=== PATIENT | female | born 1955 | race Caucasian/White ===

== ENCOUNTER 2018-10-13 12:21 | Day surgery (SDC) | payer MEDICARE ==
[~2018-10-13 12:21] MED LIST: Acetaminophen TAB* 325 MG PO PRN; Buffered Lidocaine 1% SYRIN* 1 ML/SYRINGE INTRADERM ONE; Cyclopentolate 1% OPTH.SOL* 2 ML BTL ONE; Ketorolac 0.5% OPHTH (NF) 0.5 % 5 ML BTL ONE; Lidocaine 1%* 5 ML VIAL ONE; Neomycin/Polymy/Dex OPHTH.OIN* 3.5 GM ONE; Tetracaine 0.5% OPTH.SOL 4 ML* 1 DROP BTL ONE; Tropicamide 1% OPTH.SOL* BTL ONE
[2018-10-13] MEDS ORDERED: Midazolam* 1 MG/ML 2 ML VIAL (2 MG) ONE ×2 (13:43→14:14)
[2018-10-13 14:43] VITALS: BP 113/48
--- NOTE | 2018-10-13 23:30 | OP ---
DATE OF OPERATION: 10/13/18 - [facility] DATE OF : 59 SURGEON: Juwan Chau MD ASSOCIATE PROFESSOR OF SURGERY: None. ANESTHESIA: Topical with intravenous sedation. PRE-OP DIAGNOSIS: Cataract with glaucoma, right eye. POST-OP DIAGNOSIS: Cataract with glaucoma, right eye. OPERATIVE PROCEDURE: Phacoemulsification, cataract extraction, posterior chamber intraocular lens implant, and iStent implant, right eye. COMPLICATIONS: None. BLOOD LOSS: None. DESCRIPTION OF PROCEDURE: The patient was brought to the operating room and given intravenous sedation. A drop of tetracaine was placed in her right eye. The patient was prepped and draped in the usual sterile fashion for ophthalmic surgery and attention was directed to the right eye where a speculum was placed. A paracentesis was created at the 11 o'clock position and 0.1 cc of 1% preservative- free lidocaine was injected into the anterior chamber followed by DisCoVisc. The eye was digitally stabilized while a 2.75-mm keratome was used to create a triplanar clear corneal incision at the 9 o'clock position. A continuous curvilinear capsulorrhexis was created with a cystotome and Utrata forceps. BSS on a cannula was used to hydrodissect the lens from the capsule. Phacoemulsification was performed in a [id number]-[id number]-bpuodhv technique to create 4 fragments, which were removed. Residual cortical material was removed with irrigation and aspiration. DisCoVisc was used to inflate the capsule bag. An AU00T0 10.5 diopter lens was inserted into the capsular bag. Supplemental DisCoVisc was used to deepen the anterior chamber. DisCoVisc was placed on the surface of cornea as well. The patient's head was rotated away from the surgeon and the microscope was rotated toward the surgeon. A gonioprism was placed on the surface of the eye and an iStent on its plating technician was directed into the anterior chamber. Under direct visualization, the iStent was introduced into the nasal trabecular mesh-work. Small reflux of blood was noted and the position of the iStent was excellent. The iStent plating technician and the gonioprism were removed. The patient's head and the microscope were returned to the neutral position. Irrigation and aspiration were performed to remove viscoelastic from the eye. BSS on a cannula was used to hydrate the corneal stroma and seal the wound. At the end of the case, the pupil was round and the lens was centered and stable. The eye pressure appeared normal and wound was watertight. The speculum was removed. Topical Maxitrol ointment was placed on the surface of the eye that was closed, patched, and shielded, and the patient was sent to the recovery room in stable condition with postop instructions and followup appointment given. [id number]/[facility] #: [id number] LUIZ
== END 2018-10-13 14:54 | disposition home or self-care (01) ==
LOC: OREAST 12:21
PROVIDERS: ATTEND Ophthalmology
DX: H25.11 Age-related nuclear cataract, right eye (principal); H40.10X1 Unspecified open-angle glaucoma, mild stage; I10 Essential (primary) hypertension; K21.9 Gastro-esophageal reflux disease without esophagitis; E11.42 Type 2 diabetes mellitus with diabetic polyneuropathy; Z79.84 Long term (current) use of oral hypoglycemic drugs; E78.00 Pure hypercholesterolemia, unspecified; R01.1 Cardiac murmur, unspecified
CPT/HCPCS: A9270-GY; C1783; J2250; V2632

== ENCOUNTER 2018-10-20 09:12 | Day surgery (SDC) | payer MEDICARE ==
[~2018-10-20 09:12] MED LIST changes: -Cyclopentolate 1% OPTH.SOL* 2 ML BTL ONE; -Ketorolac 0.5% OPHTH (NF) 0.5 % 5 ML BTL ONE; -Lidocaine 1%* 5 ML VIAL ONE; -Neomycin/Polymy/Dex OPHTH.OIN* 3.5 GM ONE; -Tetracaine 0.5% OPTH.SOL 4 ML* 1 DROP BTL ONE; -Tropicamide 1% OPTH.SOL* BTL ONE
[2018-10-20] MEDS ORDERED: fentaNYL* 50 MCG/ML 2 ML VIAL (100 MCG VIAL) ONE (11:12)
[2018-10-20] MEDS ORDERED: Midazolam* 1 MG/ML 2 ML VIAL (2 MG) ONE (11:12)
[2018-10-20 12:34] VITALS: BP 113/46
[2018-10-20] MEDS ORDERED: Neomycin/Polymy/Dex OPHTH.OIN* 3.5 GM ONE (13:23)
[2018-10-20] MEDS ORDERED: Tetracaine 0.5% OPTH.SOL 4 ML* 1 DROP BTL ONE (13:23)
[2018-10-20] MEDS ORDERED: Lidocaine 1%* 5 ML VIAL ONE (13:23)
[2018-10-20] MEDS ORDERED: Cyclopentolate 1% OPTH.SOL* 2 ML BTL ONE (13:23)
[2018-10-20] MEDS ORDERED: Phenylephrine 2.5% OPTH.SOL* 2 ML BTL ONE (13:23)
[2018-10-20] MEDS ORDERED: Tropicamide 1% OPTH.SOL* BTL ONE (13:23)
[2018-10-20] MEDS ORDERED: Ketorolac 0.5% OPHTH (NF) 0.5 % 5 ML BTL ONE (13:23)
--- NOTE | 2018-10-20 14:06 | OP ---
DATE OF OPERATION: 10/20/18 - [facility] DATE OF : 59 SURGEON: Juwan Chau MD BOARD HANDLER: None. ANESTHESIA: Topical with intravenous sedation. PRE-OP DIAGNOSIS: Cataract and glaucoma, left eye. POST-OP DIAGNOSIS: Cataract and glaucoma, left eye. OPERATIVE PROCEDURE: Phacoemulsification and cataract extraction with posterior chamber intraocular lens implant, left eye; and iStent implant, left eye. COMPLICATIONS: None. BLOOD LOSS: None. DESCRIPTION OF PROCEDURE: The patient was brought to the operating room and received small amount of intravenous sedation. A drop of tetracaine was placed on her left eye. The patient was prepped and draped in the usual sterile fashion for ophthalmic surgery and attention was directed to the left eye, where a speculum was placed. A paracentesis was created at the 5 o'clock position and 0.1 cc of 1% preservative-free lidocaine was injected into the anterior chamber followed by DisCoVisc. The eye was digitally stabilized while a 2.75-mm keratome was used to create a triplanar clear corneal incision at the 3 o'clock position. A continuous curvilinear capsulorrhexis was created with a cystotome and Utrata forceps. BSS on the cannula was used to hydrodissect the lens from the capsule. Phacoemulsification was performed in a divide-and- conquer technique to create 4 fragments, which were removed. Residual cortical material was removed with irrigation and aspiration. DisCoVisc was used to inflate the capsular bag. An AU00T0 11.0 diopter lens was inserted into the capsular bag. Supplemental DisCoVisc was added to deepen the anterior chamber and coat the surface of the cornea. The patient's head was rotated away from the surgeon and the microscope was rotated toward the surgeon. A gonioprism was placed in the surface of the eye. An iStent on its utilities and maintenance supervisor was introduced into the anterior chamber. Under direct visualization, the iStent was placed into the nasal trabecular meshwork. The iStent utilities and maintenance supervisor and the gonioprism were removed. The patient's head and the microscope were returned to neutral positions. Irrigation and aspiration was performed to remove viscoelastic from the eye. BSS on the cannula was used to hydrate the corneal stroma and seal the wound. At the end of the case, the pupil was round. The lens was centered and stable. The iStent was in good position. The eye pressure appeared normal and the wound was watertight. The speculum was removed and topical Maxitrol ointment was placed on the surface of the eye. The eye was closed, patched, and shielded and the patient was sent to the recovery room in stable condition with postop instructions and followup appointment given. [id number]/[facility] #: [id number] LUIZ
== END 2018-10-20 12:17 | disposition home or self-care (01) ==
LOC: OREAST 09:12
PROVIDERS: ATTEND Ophthalmology
DX: H25.12 Age-related nuclear cataract, left eye (principal); H40.10X1 Unspecified open-angle glaucoma, mild stage; E11.9 Type 2 diabetes mellitus without complications; Z79.84 Long term (current) use of oral hypoglycemic drugs; Z86.73 Personal history of transient ischemic attack (TIA), and cerebral infarction without residual deficits; Z79.01 Long term (current) use of anticoagulants; I10 Essential (primary) hypertension; G47.33 Obstructive sleep apnea (adult) (pediatric); J45.909 Unspecified asthma, uncomplicated
CPT/HCPCS: A9270-GY; C1783; J2250; J3010; V2632

== ENCOUNTER → 2019-01-10 12:42 | Emergency (ER) | payer MEDICARE ==
[~2019-01-10 12:42] MED LIST changes: -Acetaminophen TAB* 325 MG PO PRN; -Buffered Lidocaine 1% SYRIN* 1 ML/SYRINGE INTRADERM ONE; +oxyCODONE/Acetamin 5/325 MG* TAB PO ONE
--- NOTE | 2019-01-10 13:19 | ED ---
Complex/Multi-Sys Presentation - HPI Summary HPI Summary: Patient is a 63 y/o F presenting to ED with complaints of head "bumps". She reports finding multiple "bumps" on her head and first noted them two days ago, 01/08/19. Bumps are located at left side of posterior and occipital area. The bumps are noted to be tender. She reports intermittent, sharp pain "like a shock " at these areas with radiation into her head. Patient states that the bumps were not painful two days ago, 01/08/19, but became painful yesterday morning, 01/09/19. Some dizziness sitting up is noted. Patient is on Warfarin for PE in 2008. PMHx of diabetes. She has not had a lab blood draw to check for her BG and INR recently. Patient also makes note of a fall around two weeks ago after tripping over a rug. She states that she has been experiencing bilateral knee pain as a result of this fall from two weeks ago. Patient additionally states that she bumped her head against a door frame earlier this morning, 01/10/19. She denies abdominal pain, nausea, and vomiting. PSHx of breast reduction, bone removal from left hand, cholecystectomy. No FMHx of blood clots is reported , father has Hx of stroke, FMHx of cardiac disease is endorsed. Hx of HTN. Patient's friend, Meghan, is present in the room. Patient takes Tylenol at home for pain, she is agreeable with receiving pain medication in the ED. On triage, pain is rated 10/10, nothing is noted to aggravate/alleviate Sx. Home medications and allergies are reviewed. Allergies Allergy/AdvReac Type Severity Reaction Status Date / Time Adhesive Tape Allergy KOENIG Verified 01/10/19 12:50 codeine Allergy n/v Verified 01/10/19 12:50 latex Allergy welts/ Verified 01/10/19 12:50 hives strawberry Allergy anaphylaxis Verified 01/10/19 12:50 aspertame Allergy Headache Uncoded 01/10/19 12:50 contrast dye Allergy anaphylactic Uncoded 01/10/19 12:50 shock - History Of Current Complaint Chief Complaint: EDGeneral Time Seen by Provider: 01/10/19 13:08 Hx Obtained From: Patient Onset/Duration: Lasting Days - bumps first noted 01/08/19, became painful 01/09/19 , bumped head on doorfram 01/10/19, Lasting Weeks - fall, bilateral knee pain two weeks ago, Still Present Timing: Constant, Days - bumps first noted 01/08/19, became painful 01/09/19, bumped head on doorfram 01/10/19, Weeks - fall, bilateral knee pain two weeks ago Severity Currently: Severe - 05/20 Location: Pain At: - head Aggravating Factor(s): nothing Alleviating Factor(s): nothing Associated Signs And Symptoms: Positive: Other - POSITIVE - "BUMPS" ON HEAD, BILATERAL KNEE PAIN, DIZZINESS, FALLS. Negative: Nausea, Vomiting, Abdominal Pain - Allergies/Home Medications Allergies/Adverse Reactions: Allergies Allergy/AdvReac Type Severity Reaction Status Date / Time Adhesive Tape Allergy KOENIG Verified 01/10/19 12:50 codeine Allergy n/v Verified 01/10/19 12:50 latex Allergy welts/ Verified 01/10/19 12:50 hives strawberry Allergy anaphylaxis Verified 01/10/19 12:50 aspertame Allergy Headache Uncoded 01/10/19 12:50 contrast dye Allergy anaphylactic Uncoded 01/10/19 12:50 shock PMH/Surg Hx/FS Hx/Imm Hx Endocrine/Hematology History: Reports: Hx Anticoagulant Therapy, Hx Diabetes, Hx Anemia - 2008 Cardiovascular History: Reports: Hx Angina, Hx Coronary Artery Disease, Hx Deep Vein Thrombosis, Hx Hypercholesterolemia, Hx Hypertension Denies: Hx Pacemaker/ICD, Other Cardiovascular Problems/Disorders Respiratory History: Reports: Hx Asthma, Hx Pulmonary Embolism - on coumadin, Hx Sleep Apnea Denies: Hx Chronic Obstructive Pulmonary Disease (COPD), Other Respiratory Problems/Disorders GI History: Reports: Hx Gastroesophageal Reflux Disease, Other GI Disorders - CELIAC DISEASE History: Denies: Hx Renal Disease Musculoskeletal History: Reports: Hx Arthritis, Hx Back Problems, Hx Bursitis, Hx Orthopedic Injury - left hip injury in youth Denies: Other Musculoskeletal History Sensory History: Reports: Hx Cataracts - lory, Hx Contacts or Glasses, Hx Glaucoma - lory Denies: Hx Hearing Aid Opthamlomology History: Reports: Hx Cataracts - lory, Hx Contacts or Glasses, Hx Glaucoma - lory Neurological History: Reports: Hx Headaches - fewer headaches recently, Hx Nerve Disease - neuopathy both feet Denies: Other Neuro Impairments/Disorders Psychiatric History: Reports: Hx Anxiety, Hx Depression Denies: Hx Panic Disorder - Surgical History Surgery Procedure, Year, and Place: breast reduction 1989/[facility];. cholecystectomy ;. carpal tunnel release [facility];. bones (2) removed from left wrist ([facility]),. arthroscopic surgery left knee;. Right Hip Replaced in December 2016 at [facility]. Hx Anesthesia Reactions: Yes - difficulty waking up - Immunization History Date of Tetanus Vaccine: Unk Date of Influenza Vaccine: 2012 Infectious Disease History: No Infectious Disease History: Denies: Traveled Outside the [place] in Last 30 Days - Family History Known Family History: Positive: Cardiac Disease, Other - FMHX OF STROKE ENDORSED Negative: Blood Disorder - NO FMHX OF BLOOD CLOTS - Social History Alcohol Use: Occasionally Alcohol Amount: 1-2 glasses of wine per week Substance Use Type: Reports: None Hx Tobacco Use: No Smoking Status (MU): Former Smoker Type: Cigarettes Amount Used/How Often: at age 22 Have You Smoked in the Last Year: No Review of Systems Negative: Abdominal Pain, Vomiting, Nausea Musculoskeletal: Other - POSITIVE - FALL, STRUCK HEAD AGAINST DOORFRAME, BILATERAL KNEE PAIN Skin: Other - POSITIVE - HEAD BUMPS Neurological: Other - POSITIVE - DIZZINESS All Other Systems Reviewed And Are Negative: Yes Physical Exam - Summary Physical Exam Summary: Appearance: Ill-appearing, moderate pain distress, well-nourished Skin: Warm, color reflects adequate perfusion, dry; bilateral 5 cm by 1 cm abrasions on knees with redness and yellowish scabs Head: Normal Head/Face inspection, atraumatic; No lumps palpated or redness noted. Areas of sensitivity and pain at parietal scalp. Eyes: Conjunctiva clear ENT: Normal inspection Neck: Supple, no nodes, no JVD Respiratory: Lungs clear, normal breath sounds, no respiratory distress Cardio: RRR, No murmur, pulses normal, brisk capillary refill Abdomen: Soft, nontender Bowel sounds: Present Musculoskeletal: Strength Intact/ROM intact, no calf tenderness, no edema. Psychological: Normal Neuro: Alert, muscle tone normal, no focal deficit Triage Information Reviewed: Yes Vital Signs On Initial Exam: Initial Vitals Temp Pulse Resp BP Pulse Ox 97.7 F 60 18 142/92 98 01/10/19 12:43 01/10/19 12:43 01/10/19 12:43 01/10/19 12:43 01/10/19 12:43 Vital Signs Reviewed: Yes Diagnostics - Vital Signs Vital Signs Temp Pulse Resp BP Pulse Ox 01/10/19 12:43 97.7 F 60 18 142/92 98 - Laboratory Result Diagrams: 01/10/19 13:49 01/10/19 13:49 Lab Statement: Any lab studies that have been ordered have been reviewed, and results considered in the medical decision making process. - CT BRAIN CT CT Interpretation Completed By: Radiologist Summary of CT Findings: BRAIN CT IMPRESSION: 1. No CT apparent signs of acute calvarial injury or intracranial hemorrhage. 2. Paranasal sinus mucosal disease. THIS REPORT WAS REVIEWED BY DR. BERMUDEZ. Re-Evaluation - Re-Evaluation First Eval Re-Evaluation Time: 15:39 Comment: Results of labs and tests were discussed with the patient. She will be discharged to home and is advised to follow up with PCP. Patient is agreeable with this. Strict return precautions were given. Complex Multi-Symp Course/Dx Course Of Treatment: Patient is a 63 y/o F presenting to ED with complaints of head "bumps". She reports finding multiple "bumps" on her head and first noted them two days ago, 01/08/19. Bumps are located at left side of posterior and occipital area. The bumps are noted to be tender. She reports intermittent, sharp pain "like a shock" at these areas with radiation into her head. Patient states that the bumps were not painful two days ago, 01/08/19, but became painful yesterday morning, 01/09/19. Some dizziness sitting up is noted. Patient is on Warfarin for PE in 2008. PMHx of diabetes. She has not had a lab blood draw to check for her BG and INR recently. Patient also makes note of a fall around two weeks ago after tripping over a rug. She states that she has been experiencing bilateral knee pain as a result of this fall from two weeks ago. Patient additionally states that she bumped her head against a door frame earlier this morning, 01/10/19. She denies abdominal pain, nausea, and vomiting. On physical exam, bilateral 5 cm by 1 cm abrasions on knees bilaterally, no lumps palpated or redness noted at head. There are areas of sensitivity and pain at parietal scalp. Labs showed Hgb 11.1, Hct 34, INR 2.33, APTT 52.3, chloride 100, glucose 248, CRP 11.62. During ED course, patient received Percocet 5/325, [address] IMPRESSION: 1. No CT apparent signs of acute calvarial injury or intracranial hemorrhage. 2. Paranasal sinus mucosal disease. Results of labs and tests were discussed with the patient. She will be discharged to home and is advised to follow up with PCP. Patient is agreeable with this. Strict return precautions were given. - Diagnoses Provider Diagnoses: Headache, Infection of knee, Scalp pain Discharge - Sign-Out/Discharge Documenting (check all that apply): Patient Departure - discharge Patient Received Moderate/Deep Sedation with Procedure: No - Discharge Plan Condition: Stable Disposition: HOME Patient Education Materials: Wound Infection (ED), Acute Headache (ED) Referrals: Michelle Allen NP [Primary Care Provider] - 2 Days Additional Instructions: The CT brain did not show any serious cause of your "bumps" on your scalp. And your INR was still in the therapeutic range for a pulmonary embolus. It is 2.33. Dr. Bermudez has started you on Augmentin, the antibiotic, for your knee wounds which do look like they are starting to get infected. Please follow up with Michelle Allen NP for further evaluation of you scalp pain , and to make sure that the knee wounds heal. Return to the ER if you have any new or worsening symptoms. - Attestation Statements Document Initiated by Scribe: Yes Documenting Scribe: STONE WHITEHEAD Provider For Whom Adriana is Documenting (Include Credential): OSBALDO BERMUDEZ MD Scribe Attestation: STONE Charlton, scribed for OSBALDO BERMUDEZ MD on 01/10/19 at 1913.
--- OUTSIDE RECORDS SUMMARY | 2019-01-10 13:25 | XMS REPORT | Continuity of Care Document ---
:1955 External Reference #:[id number] Author Name Michelle Allen NP Address [address] [place] [address] Care Team Providers Name Role Phone Michelle Allen NP Care Team Information [employer] Supervisor Unavailable Payers Date Identification Numbers Payment Provider Subscriber Expires: 2018 Policy Number: [id number] Medicare - Bswny Umd Janny Rojas PayID: [id number] [address] [place] [address] Effective: 2017 Policy Number: [id number] Medicaid After Medicare Janny Rojas Expires: 2017 Group Name: 2 1 [address] PayID: [id number] [place] [address] Effective: 2018 Policy Number: [id number] [facility] Medicare Janny Rojas Group Number: [id number] [address] Group Name: [place] [address] PayID: [id number] Problems Active Problems Provider Date Type 2 diabetes mellitus with diabetic ALTA Charles Onset: 2016 neuropathy, unspecified Pure hypercholesterolemia ALTA Charles Onset: 06/19/2017 Essential hypertension ALTA Charles Onset: 06/19/2017 Social History Type Date Description Comments Sex Unknown Lives With Alone Occupation Retired from [employer] disability due to neuropathy Tobacco Use Start: Unknown End: Former Cigarette Smoker 1/2 pack a day for 2 Unknown yrs Smoking Status Reviewed: 12/28/18 Former Cigarette Smoker 1/2 pack a day for 2 yrs ETOH Use Occasionally consumes alcohol Tobacco Use Start: Unknown End: Patient is a former smoker Unknown Allergies, Adverse Reactions, Alerts Active Allergies Reaction Severity Comments Date Strawberries 06/19/2017 Amoxicillin 06/19/2017 Glipizide 06/19/2017 Contrast Dye 06/19/2017 Codeine 06/19/2017 Latex 12/28/2018 Medications Active Medications SIG Qnty Indications Ordering Date Provider Nateglinide take one tablet 90tabs E11.40 Michelle Alejandro, 03/23/2018 60mg by mouth three DECORATION CHECKER Tablets times a day with meals Irbesartan take one tablet 30tabs Clarence 03/02/2018 150mg by mouth every MD Lizz Tablets day for blood pressure Fish Oil as directed Dayana Elaine, 06/19/2017 1000mg SEWER BRICKLAYER-C Capsules Vitamin C 2 po qd Dayana Elaine, 06/19/2017 500mg SEWER BRICKLAYER-C Capsules Pressure Two Eye one capsule by Unknown Vitamin mouth twice a day Nitroglycerin Place One Tablet Unknown 0.4mg Under The Tongue Tablets Sub Every 5 Minutes For Up To 3 Doses as Needed Forchest Pain. If Chest Pain Still Persists Contact 911 Warfarin Sodium Take 1 Tablet By 30tabs Jenna 5mg Mouth 4 Times A Shortle, DECORATION CHECKER Tablets Week And 1/2 Tablet 3 Times A Week as Directed Oxycodone-Acetaminoph Take One Tablet Unknown en By Mouth Twice A 5-325mg Tablets Day as Needed For Pain Maximum Daily Onetouch Ultra Blue use to test two 100units E11.40 [facility] times a day (dx: Kristi, DECORATION CHECKER Strips e11.40) Gabapentin take two 450caps Michelle Allen, 300mg capsules by DECORATION CHECKER Capsules mouth every morning and take three capsules by mouth every evening Warfarin Sodium 5mg 4 days per 90tabs Michelle Allen, 5mg week and 2.5mg 3 DECORATION CHECKER Tablets days per week or as directed Omeprazole 1 po qd Unknown 40mg Capsules [address] Metformin HCL Take 1 Tablet By 60tabs Clarence 1000mg Mouth Two Times MD Lizz Tablets Daily Citalopram 1 by mouth every 30tabs Michelle Allen, Hydrobromide day [employer]ATION CHECKER 20mg Tablets Baclofen Take 1 Tablet By 30tabs Clarence 20mg Tablets Mouth Every Day MD Lizz Simvastatin 1 tab by mouth 30tabs Michelle Allen, 40mg every at bedtime [employer]ATION CHECKER Tablets History Medications Nitrofurantoin Monohyd Take 1 capsule by 14caps Michelle Allen, DECORATION CHECKER 2017 - Macro mouth every 12 08/21/2018 100mg Capsules hours for 7 days with food for urinary tract infection Repaglinide Take One Tablet By 90tabs Jenna Berry, 02/03/2018 - 0.5mg Tablets Mouth Three Times [employer]ATION CHECKER 02/05/2018 A Day 15 To 30 Minutes Before Meals For Type 2 Diabetes Melatonin Jenna Kristi, 12/29/2017 - 1mg Capsules DECORATION CHECKER 12/29/2017 Repaglinide Take One Tablet By 90tabs Jenna Berry, 11/28/2017 - 0.5mg Tablets Mouth Three Times DECORATION CHECKER 11/28/2017 A Day 15 To 30 Minutes Before Meals For Type 2 Diabetes Januvia take one tablet by 30tabs Michelle Allen, DECORATION CHECKER 11/28/2017 - 100mg Tablets mouth every day 12/28/2018 for type 2 diabetes Repaglinide Take 1 tablet by 90tabs Jenna Berry, 10/31/2017 - 0.5mg Tablets mouth 3 times per DECORATION CHECKER 11/25/2017 day 15 to 30 minutes before meals for Type 2 diabetes Prednisone 2 tabs by mouth 28tabs Jenna Berry, 08/25/2017 - 20mg Tablets daily (in the DECORATION CHECKER 10/20/2017 morning) Nateglinide 1 tab po tid 90tabs Unknown - 60mg Tablets 02/19/2018 Tradjenta Take 1 Tablet By Unknown - 5mg Tablets Mouth Every Day 11/25/2017 Valsartan take one tablet by 30tabs Clarence Zamudio, - 80mg Tablets mouth every day 03/02/2018 Immunizations CPT Code Status Date Vaccine Lot # [id number] Given 12/28/2018 Pneumovax 23 (PPSV23) 65+ years or high risk 2 to [id number] 66 year old [address] Given 12/28/2018 Tdap (Adacel) [id number] Given 04/11/2018 Influenza Virus Vaccine, Quadrivalent, 3 Yr > Quad, Preserv Free 23056 Given 06/19/2017 Prevnar-13 Pneumococcal Conjugate Vaccine [id number] Given 05/28/2017 Influenza Virus Vaccine, Quadrivalent, 3 Yr > Quad, Preserv Free Vital Signs Date Vital Result Comment 12/28/2018 2:46pm Weight 186.00 lb Weight 84.370 kg BP Systolic 110 mmHg BP Diastolic 68 mmHg Heart Rate 68 /min Body Temperature 97.1 F Respiratory Rate 16 /min Height 63.5 inches 5'3.50" BMI (Body Mass Index) 32.4 kg/m2 10/12/2018 5:02pm Weight 185.00 lb Weight 83.916 kg BP Systolic 112 mmHg BP Diastolic 64 mmHg Heart Rate 56 /min Body Temperature 98.6 F Respiratory Rate 16 /min O2 % BldC Oximetry 99 % 10/05/2018 9:59am Weight 186.00 lb Weight 84.370 kg BP Systolic 120 mmHg BP Diastolic 60 mmHg Heart Rate 72 /min Body Temperature 97.5 F Respiratory Rate 16 /min 08/21/2018 2:11pm Weight 187.00 lb Weight 84.823 kg BP Systolic 130 mmHg BP Diastolic 80 mmHg Heart Rate 73 /min Body Temperature 97.8 F O2 % BldC Oximetry 99 % 06/30/2018 8:54am Weight 192.00 lb Weight 87.091 kg BP Systolic 112 mmHg BP Diastolic 62 mmHg Heart Rate 60 /min Body Temperature 98.1 F Respiratory Rate 16 /min 05/04/2018 2:44pm Weight 187.00 lb Weight 84.823 kg BP Systolic 110 mmHg BP Diastolic 68 mmHg Heart Rate 64 /min Body Temperature 98.3 F Respiratory Rate 16 /min O2 % BldC Oximetry 97 % 03/23/2018 10:55am Weight 188.00 lb Weight 85.277 kg BP Systolic 102 mmHg BP Diastolic 62 mmHg Heart Rate 64 /min Body Temperature 98.4 F Respiratory Rate 16 /min 02/19/2018 2:19pm Weight 187.00 lb Weight 84.823 kg BP Systolic 108 mmHg BP Diastolic 64 mmHg Heart Rate 68 /min Body Temperature 98.2 F Respiratory Rate 18 /min O2 % BldC Oximetry 98 % 12/22/2017 8:13am Weight 181.00 lb Weight 82.102 kg BP Systolic 122 mmHg BP Diastolic 68 mmHg Heart Rate 74 /min Body Temperature 97.3 F Respiratory Rate 16 /min Height 64 inches 5'4" BMI (Body Mass Index) 31.1 kg/m2 O2 % BldC Oximetry 98 % 11/25/2017 10:53am Weight 197.00 lb Weight 89.359 kg BP Systolic 124 mmHg BP Diastolic 70 mmHg Heart Rate 72 /min Body Temperature 97.5 F Respiratory Rate 20 /min 10/20/2017 9:45am Weight 186.00 lb Weight 84.370 kg BP Systolic 108 mmHg BP Diastolic 62 mmHg Heart Rate 74 /min Body Temperature 98.0 F Respiratory Rate 16 /min 08/25/2017 10:23am Weight 188.00 lb Weight 85.277 kg BP Systolic 110 mmHg BP Diastolic 70 mmHg Heart Rate 68 /min Body Temperature 97.3 F Respiratory Rate 16 /min O2 % BldC Oximetry 98 % 06/19/2017 2:15pm Weight 185.00 lb Weight 83.916 kg BP Systolic 105 mmHg BP Diastolic 60 mmHg Heart Rate 64 /min Body Temperature 99.8 F Height 63 inches 5'3" BMI (Body Mass Index) 32.8 kg/m2 Results Test Date Facility Test Result H/L Range Note Laboratory test [facility] Hemoglobin A1c < pending> finding 9 [phone] (Glyco HGB) Laboratory test Other [facility] 2.1 finding 9 Normalized Ratio Laboratory test [facility] Vitamin B12 544 pg/mL N 180-136 1 finding 9 [phone] Laboratory test Other [facility] 1.9 finding 9 Normalized Ratio Laboratory test Other [facility] 1.8 finding 9 Normalized Ratio Laboratory test Other [facility] 1.6 finding 9 Normalized Ratio Laboratory test [facility] 1.6 finding 9 Normalized Ratio Laboratory test Other [facility] 1.9 finding 9 Normalized Ratio Laboratory test [facility] 1.8 finding 9 Normalized Ratio Laboratory test Other [facility] 2.3 finding 9 Normalized Ratio Laboratory test Other [facility] 2.7 finding 9 Normalized Ratio Laboratory test Other [facility] 2.8 finding 9 Normalized Ratio Laboratory test [facility] 2.9 finding 9 Normalized Ratio Laboratory test [facility] 2.9 finding 9 Normalized Ratio Laboratory test Other [facility] 3.7 finding 9 Normalized Ratio Laboratory test Other [facility] 4.2 finding 9 Normalized Ratio Laboratory test Other [facility] 3.0 finding 9 Normalized Ratio Comp Metabolic [facility] Sodium 139 mmol/ L N 135-145 Panel 9 [phone] Potassium 3.9 mmol/L N 3.5-5.0 Chloride 103 mmol/L N 101-111 Co2 Carbon Dioxide 29 mmol/L N 22-32 Anion Gap 7 mmol/L N 2-11 Glucose 119 mg/dL High 70-100 Blood Urea Nitrogen 12 mg/dL N 6-24 Creatinine 0.69 mg/dL N 0.51-0.95 BUN/Creatinine Ratio 17.4 N 8-20 Calcium 9.6 mg/dL N 8.6-10.3 Total Protein 7.2 g/dL N 6.4-8.9 Albumin 4.5 g/dL N 3.2-5.2 Globulin 2.7 g/dL N 2-4 Albumin/Globulin Ratio 1.7 N 1-3 Total Bilirubin 0.20 mg/dL N 0.2-1.0 Alkaline Phosphatase 52 U/L N 34-104 Alt 15 U/L N 7-52 Ast 18 U/L N 13-39 Egfr Non- 86.5 >60 Egfr 104.7 >60 2 CBC Auto Diff 09/28/2018 [facility] White Blood 7.4 10^3/uL N 3.5-10.8 [phone] Count Red Blood Count 3.95 10^6/uL Low 4.00-5.40 Hemoglobin 11.2 g/dL Low 12.0-16.0 Hematocrit 34 % Low 35-47 Mean Corpuscular Volume 86 fL N 80-97 Mean Corpuscular Hemoglobin 28 pg N 27-31 Mean Corpuscular HGB Conc 33 g/dL N 31-36 Red Cell Distribution Width 15 % N 10.5-15 Platelet Count 352 10^3/uL N 150-450 Mean Platelet Volume 6.9 fL Low 7.4-10.4 Abs Neutrophils 4.1 10^3/uL N 1.5-7.7 Abs Lymphocytes 2.8 10^3/uL N 1.0-4.8 Abs Monocytes 0.4 10^3/uL N 0-0.8 Abs Eosinophils 0.1 10^3/uL N 0-0.6 Abs Basophils 0 10^3/uL N 0-0.2 Abs Nucleated RBC 0 10^3/uL Granulocyte % 55.2 % Lymphocyte % 37.5 % Monocyte % 5.1 % Eosinophil % 1.7 % Basophil % 0.5 % Nucleated Red Blood Cells % 0.1 Laboratory 09/28/2018 [facility] Hemoglobin A1c 7.1 % High 4.0-5.6 3 test finding [phone] (Glyco HGB) Laboratory 09/23/2018 Other [facility] 1.9 test finding Normalized Ratio Laboratory 09/16/2018 [facility] 2.6 test finding Normalized Ratio Laboratory 09/09/2018 [facility] 1.7 test finding Normalized Ratio Laboratory 09/02/2018 Other [facility] 1.7 test finding Normalized Ratio Laboratory 08/27/2018 [facility] 1.4 test finding Normalized Ratio Laboratory 08/21/2018 [facility] Cytology Non-Lottery Sales Clerk SEE 4 test finding [phone] RESULT BELOW Laboratory 08/20/2018 [facility] 2.9 test finding Normalized Ratio Laboratory 08/13/2018 [facility] 2.7 test finding Normalized Ratio Laboratory 08/12/2018 [facility] 2.7 test finding Normalized Ratio Laboratory 08/05/2018 Other [facility] 2.9 test finding Normalized Ratio Laboratory 07/29/2018 Other [facility] 2.4 test finding Normalized Ratio Laboratory 07/22/2018 Other [facility] 2.0 test finding Normalized Ratio Laboratory 07/15/2018 [facility] 2.4 test finding Normalized Ratio Laboratory 07/08/2018 Other [facility] 1.9 test finding Normalized Ratio Laboratory 07/01/2018 [facility] 2.2 test finding Normalized Ratio Laboratory 06/25/2018 Other [facility] 2.6 test finding Normalized Ratio Laboratory 06/17/2018 Other [facility] 2.5 test finding Normalized Ratio CBC Auto Diff 06/17/2018 [facility] White Blood Count 5.9 N 3.5-10.8 [phone] 10^3/uL Red Blood Count 3.87 10^6/uL Low 4.00-5.40 Hemoglobin 11.0 g/dL Low 12.0-16.0 Hematocrit 33 % Low 35-47 Mean Corpuscular Volume 86 fL N 80-97 Mean Corpuscular Hemoglobin 28 pg N 27-31 Mean Corpuscular HGB Conc 33 g/dL N 31-36 Red Cell Distribution Width 15 % N 10.5-15 Platelet Count 331 10^3/uL N 150-450 Mean Platelet Volume 6.9 fL Low 7.4-10.4 Abs Neutrophils 3.3 10^3/uL N 1.5-7.7 Abs Lymphocytes 2.1 10^3/uL N 1.0-4.8 Abs Monocytes 0.4 10^3/uL N 0-0.8 Abs Eosinophils 0.1 10^3/uL N 0-0.6 Abs Basophils 0 10^3/uL N 0-0.2 Abs Nucleated RBC 0 10^3/uL Granulocyte % 55.9 % N 38-83 Lymphocyte % 35.9 % N 25-47 Monocyte % 6.3 % N 0-7 Eosinophil % 1.4 % N 0-6 Basophil % 0.5 % N 0-2 Nucleated Red Blood Cells % 0.1 Comp Metabolic Panel 06/17/2018 [facility] Sodium 137 mmol/L N 135-145 [phone] Potassium 4.7 mmol/L N 3.5-5.0 Chloride 101 mmol/L N 101-111 Co2 Carbon Dioxide 28 mmol/L N 22-32 Anion Gap 8 mmol/L N 2-11 Glucose 290 mg/dL High 70-100 Blood Urea Nitrogen 16 mg/dL N 6-24 Creatinine 0.74 mg/dL N 0.51-0.95 BUN/Creatinine Ratio 21.6 High 8-20 Calcium 9.2 mg/dL N 8.6-10.3 Total Protein 7.0 g/dL N 6.4-8.9 Albumin 4.1 g/dL N 3.2-5.2 Globulin 2.9 g/dL N 2-4 Albumin/Globulin Ratio 1.4 N 1-3 Total Bilirubin 0.30 mg/dL N 0.2-1.0 Alkaline Phosphatase 50 U/L N 34-104 Alt 15 U/L N 7-52 Ast 17 U/L N 13-39 Egfr Non- 79.8 >60 Egfr 96.5 >60 5 Laboratory test 06/17/2018 [facility] Hemoglobin A1c 7.8 % High 4.0-5.6 6 finding [phone] (Glyco HGB) Laboratory test 06/11/2018 Other [facility] 2.4 finding Normalized Ratio Laboratory test 06/03/2018 Other [facility] 1.9 finding Normalized Ratio Laboratory test 05/28/2018 Other [facility] 2.0 finding Normalized Ratio Laboratory test 05/20/2018 Other [facility] 2.2 finding Normalized Ratio Laboratory test 05/13/2018 Other [facility] 1.9 finding Normalized Ratio Laboratory test 05/06/2018 Other [facility] 1.8 finding Normalized Ratio Urine Culture And 05/04/2018 [facility] Urine Culture SEE 7 Sensitivities [phone] RESULT BELOW Urine DIP 05/04/2018 In House Lab Leukocytes ++ Neg [phone] Urine Nitrites neg Neg Urobilinogen norm Norm Total Protein, Urine + Neg Urine pH 5 5-6 Urine Blood 250 High Neg Specific [place] 1.030 High 1.01-1.02 Urine Ketones neg Neg Urine Bilirubin neg Neg Urine Glucose norm Norm Laboratory test 04/29/2018 Other [facility] 1.8 finding Normalized Ratio Laboratory test 04/22/2018 Other [facility] 2.0 finding Normalized Ratio Laboratory test 04/15/2018 Other [facility] 1.8 finding Normalized Ratio Laboratory test 04/08/2018 Other [facility] 2.1 finding Normalized Ratio Laboratory test 04/01/2018 Other [facility] 1.7 finding Normalized Ratio Laboratory test 03/26/2018 Other [facility] 2.1 finding Normalized Ratio Laboratory test 03/18/2018 Other [facility] 2.7 finding Normalized Ratio Laboratory test 03/12/2018 Other [facility] 2.4 finding Normalized Ratio Laboratory test 03/05/2018 Other [facility] 1.9 finding Normalized Ratio Laboratory test 02/25/2018 Other [facility] 2.1 finding Normalized Ratio Laboratory test 02/19/2018 Other [facility] 2.7 finding Normalized Ratio Urine Culture And 02/19/2018 [facility] Urine Culture SEE RESULT 8 Sensitivities [phone] BELOW Urine DIP 02/19/2018 In House Lab Leukocytes ++ Neg [phone] - Urine Nitrites neg Neg Urobilinogen norm Norm Total Protein, Urine tr Neg Urine pH 5 5-6 Urine Blood neg Neg Specific [place] 1.020 1.01-1.02 Urine Ketones neg Neg Urine Bilirubin neg Neg Urine Glucose norm Norm Laboratory test 02/12/2018 Other [facility] 2.1 finding Normalized Ratio CBC Auto Diff 02/10/2018 [facility] White Blood Count 7.7 N 3.5-10 [phone] 10^3/uL .8 Red Blood Count 3.95 10^6/uL Low 4.00-5.40 Hemoglobin 10.8 g/dL Low 12.0-16.0 Hematocrit 33 % Low 35-47 Mean Corpuscular Volume 83 fL N 80-97 Mean Corpuscular Hemoglobin 27 pg N 27-31 Mean Corpuscular HGB Conc 33 g/dL N 31-36 Red Cell Distribution Width 17 % High 10.5-15 Platelet Count 301 10^3/uL N 150-450 Mean Platelet Volume 6.7 um3 Low 7.4-10.4 Abs Neutrophils 4.5 10^3/uL N 1.5-7.7 Abs Lymphocytes 2.7 10^3/uL N 1.0-4.8 Abs Monocytes 0.4 10^3/uL N 0-0.8 Abs Eosinophils 0.1 10^3/uL N 0-0.6 Abs Basophils 0 10^3/uL N 0-0.2 Abs Nucleated RBC 0 10^3/uL Granulocyte % 58.0 % N 38-83 Lymphocyte % 34.8 % N 25-47 Monocyte % 5.2 % N 0-7 Eosinophil % 1.6 % N 0-6 Basophil % 0.4 % N 0-2 Nucleated Red Blood Cells % 0.1 Comp Metabolic Panel 02/10/2018 [facility] Sodium 141 mmol/L N 135-145 [phone] Potassium 4.4 mmol/L N 3.5-5.0 Chloride 103 mmol/L N 101-111 Co2 Carbon Dioxide 30 mmol/L N 22-32 Anion Gap 8 mmol/L N 2-11 Glucose 116 mg/dL High 70-100 Blood Urea Nitrogen 13 mg/dL N 6-24 Creatinine 0.79 mg/dL N 0.51-0.95 BUN/Creatinine Ratio 16.5 N 8-20 Calcium 9.4 mg/dL N 8.6-10.3 Total Protein 6.7 g/dL N 6.4-8.9 Albumin 4.0 g/dL N 3.2-5.2 Globulin 2.7 g/dL N 2-4 Albumin/Globulin Ratio 1.5 N 1-3 Total Bilirubin 0.20 mg/dL N 0.2-1.0 Alkaline Phosphatase 49 U/L N 34-104 Alt 10 U/L N 7-52 Ast 14 U/L N 13-39 Egfr Non- 74.2 >60 Egfr 89.8 >60 9 Laboratory test 02/10/2018 [facility] Hemoglobin A1c 7.0 % High 4.0-5.6 10 finding [phone] Laboratory test 02/04/2018 Other [facility] 2.3 finding Normalized Ratio Laboratory test 01/29/2018 Other [facility] 3.1 finding Normalized Ratio Laboratory test 01/21/2018 Other [facility] 2.9 finding Normalized Ratio Laboratory test 01/14/2018 Other [facility] 2.8 finding Normalized Ratio Laboratory test 01/07/2018 Other [facility] 1.9 finding Normalized Ratio Laboratory test 01/01/2018 Other [facility] 2.0 finding Normalized Ratio Laboratory test 12/24/2017 Other [facility] 2.8 finding Normalized Ratio Comp Metabolic 12/23/2017 [facility] Sodium 138 Low 139-145 Panel [phone] mmol/L Potassium 4.2 mmol/L N 3.5-5.0 Chloride 102 mmol/L N 101-111 Co2 Carbon Dioxide 30 mmol/L N 22-32 Anion Gap 6 mmol/L N 2-11 Glucose 117 mg/dL High 70-100 Blood Urea Nitrogen 17 mg/dL N 6-24 Creatinine 0.65 mg/dL N 0.51-0.95 BUN/Creatinine Ratio 26.2 High 8-20 Calcium 9.4 mg/dL N 8.6-10.3 Total Protein 7.0 g/dL N 6.4-8.9 Albumin 4.1 g/dL N 3.2-5.2 Globulin 2.9 g/dL N 2-4 Albumin/Globulin Ratio 1.4 N 1-3 Total Bilirubin 0.30 mg/dL N 0.2-1.0 Alkaline Phosphatase 52 U/L N 34-104 Alt 11 U/L N 7-52 Ast 16 U/L N 13-39 Egfr Non- 93.0 >60 Egfr 119.6 >60 11 Lipid Profile 12/23/2017 [facility] Triglycerides 248 mg/dL 12 (Trig/Chol/HDL) [phone] Cholesterol 137 mg/dL 13 HDL Cholesterol 48.4 mg/dL 14 LDL Cholesterol 39 mg/dL 15 Liver Function 12/23/2017 [facility] Direct 0.10 mg/ dL N 0.03-0.18 Panel [phone] Bilirubin Indirect Bilirubin 0.2 mg/dL Low 0.3-1.0 Laboratory 12/23/2017 [facility] Hepatitis C Nonreactive Nonreactive 16 test finding [phone] Antibody Hemoglobin A1c (Glyco HGB) 6.9 % High 4.0-5.6 17 CBC Auto Diff 12/23/2017 [facility] White Blood 8.7 10^3/uL N 3.5-10.8 [phone] Count Red Blood Count 4.06 10^6/uL N 4.0-5.4 Hemoglobin 11.0 g/dL Low 12.0-16.0 Hematocrit 34 % Low 35-47 Mean Corpuscular Volume 83 fL N 80-97 Mean Corpuscular Hemoglobin 27 pg N 27-31 Mean Corpuscular HGB Conc 33 g/dL N 31-36 Red Cell Distribution Width 16 % High 10.5-15 Platelet Count 365 10^3/uL N 150-450 Mean Platelet Volume 7.3 um3 Low 7.4-10.4 Abs Neutrophils 5.0 10^3/uL N 1.5-7.7 Abs Lymphocytes 3.1 10^3/uL N 1.0-4.8 Abs Monocytes 0.4 10^3/uL N 0-0.8 Abs Eosinophils 0.1 10^3/uL N 0-0.6 Abs Basophils 0 10^3/uL N 0-0.2 Abs Nucleated RBC 0 10^3/uL Granulocyte % 57.9 % N 38-83 Lymphocyte % 35.2 % N 25-47 Monocyte % 5.0 % N 0-7 Eosinophil % 1.5 % N 0-6 Basophil % 0.4 % N 0-2 Nucleated Red Blood Cells % 0.1 Urine Microalbumin 12/22/2017 [facility] Ur Microalbumin 21.1 mg/L Random [phone] (mg/L) Urine Creatinine 219.54 mg/dL Urine Microalbumin/Creatinine 9.6 ug/mg N <31 Laboratory test 12/22/2017 [facility] Cytology SEE RESULT 18 finding [phone] BELOW Laboratory test 12/17/2017 Other [facility] 2.3 finding Normalized Ratio Laboratory test 12/10/2017 Other [facility] 2.5 finding Normalized Ratio Laboratory test 12/03/2017 Other [facility] 3.1 finding Normalized Ratio Laboratory test 11/26/2017 Other [facility] 2.5 finding Normalized Ratio Laboratory test 11/12/2017 Other [facility] 3.0 finding Normalized Ratio Laboratory test 11/06/2017 Other [facility] 4.5 finding Normalized Ratio Laboratory test 10/30/2017 Other [facility] 2.2 finding Normalized Ratio Laboratory test 10/22/2017 Other [facility] 2.7 finding Normalized Ratio CBC Auto Diff 10/20/2017 [facility] White Blood Count 8.6 10^3/uL N 3.5-1 19 [phone] 0.8 Red Blood Count 4.15 10^6/uL N 4.0-5.4 Hemoglobin 11.4 g/dL Low 12.0-16.0 Hematocrit 35 % N 35-47 Mean Corpuscular Volume 85 fL N 80-97 Mean Corpuscular Hemoglobin 27 pg N 27-31 Mean Corpuscular HGB Conc 32 g/dL N 31-36 Red Cell Distribution Width 15 % N 10.5-15 Platelet Count 361 10^3/uL N 150-450 Mean Platelet Volume 7 um3 Low 7.4-10.4 Abs Neutrophils 5.1 10^3/uL N 1.5-7.7 Abs Lymphocytes 2.9 10^3/uL N 1.0-4.8 Abs Monocytes 0.4 10^3/uL N 0-0.8 Abs Eosinophils 0.1 10^3/uL N 0-0.6 Abs Basophils 0 10^3/uL N 0-0.2 Abs Nucleated RBC 0 10^3/uL Granulocyte % 59.5 % N 38-83 Lymphocyte % 34.0 % N 25-47 Monocyte % 4.5 % N 0-7 Eosinophil % 1.6 % N 0-6 Basophil % 0.4 % N 0-2 Nucleated Red Blood Cells % 0.1 Comp Metabolic Panel 10/20/2017 [facility] Sodium 140 mmol/L N 133-145 [phone] Potassium 4.2 mmol/L N 3.5-5.0 Chloride 103 mmol/L N 101-111 Co2 Carbon Dioxide 27 mmol/L N 22-32 Anion Gap 10 mmol/L N 2-11 Glucose 215 mg/dL High 70-100 Blood Urea Nitrogen 15 mg/dL N 6-24 Creatinine 0.84 mg/dL N 0.51-0.95 BUN/Creatinine Ratio 17.9 N 8-20 Calcium 9.4 mg/dL N 8.6-10.3 Total Protein 7.1 g/dL N 6.4-8.9 Albumin 4.3 g/dL N 3.2-5.2 Globulin 2.8 g/dL N 2-4 Albumin/Globulin Ratio 1.5 N 1-3 Total Bilirubin 0.30 mg/dL N 0.2-1.0 Alkaline Phosphatase 44 U/L N 34-104 Alt 14 U/L N 7-52 Ast 18 U/L N 13-39 Egfr Non- 69.2 >60 Egfr 88.9 >60 20 Laboratory 10/20/2017 [facility] Hemoglobin A1c 8.2 % High 4.0-5.6 21 test finding [phone] Laboratory 10/15/2017 Other [facility] 1.9 test finding Normalized Ratio Laboratory 10/09/2017 Other [facility] 2.5 test finding Normalized Ratio Inr/Protime 10/02/2017 [facility] Inr 3.46 High 0.77-1.02 22 [phone] Laboratory 09/24/2017 Other [facility] 1.4 test finding Normalized Ratio Laboratory 09/22/2017 [facility] Surgical SEE 23 , test finding [phone] Interface Order RESULT 24 BELOW Inr/Protime 09/09/2017 [facility] Inr 1.67 High 0.77-1.02 [phone] Inr/Protime 09/02/2017 [facility] Inr 3.21 High 0.77-1.02 [phone] Inr/Protime 08/25/2017 [facility] Inr 2.53 High 0.77-1.02 [phone] CBC Auto Diff 08/25/2017 [facility] White Blood 7.3 N 3.5-10.8 [phone] Count 10^3/uL Red Blood Count 4.02 10^6/uL N 4.0-5.4 Hemoglobin 11.1 g/dL Low 12.0-16.0 Hematocrit 34 % Low 35-47 Mean Corpuscular Volume 84 fL N 80-97 Mean Corpuscular Hemoglobin 28 pg N 27-31 Mean Corpuscular HGB Conc 33 g/dL N 31-36 Red Cell Distribution Width 15 % N 10.5-15 Platelet Count 349 10^3/uL N 150-450 Mean Platelet Volume 7 um3 Low 7.4-10.4 Abs Neutrophils 4.6 10^3/uL N 1.5-7.7 Abs Lymphocytes 2.3 10^3/uL N 1.0-4.8 Abs Monocytes 0.3 10^3/uL N 0-0.8 Abs Eosinophils 0.1 10^3/uL N 0-0.6 Abs Basophils 0 10^3/uL N 0-0.2 Abs Nucleated RBC 0 10^3/uL Granulocyte % 62.6 % N 38-83 Lymphocyte % 31.1 % N 25-47 Monocyte % 4.8 % N 1-9 Eosinophil % 1.1 % N 0-6 Basophil % 0.4 % N 0-2 Nucleated Red Blood Cells % 0.1 Comp Metabolic Panel 08/25/2017 [facility] Sodium 138 mmol/L N 133-145 [phone] Potassium 4.4 mmol/L N 3.5-5.0 Chloride 102 mmol/L N 101-111 Co2 Carbon Dioxide 29 mmol/L N 22-32 Anion Gap 7 mmol/L N 2-11 Glucose 133 mg/dL High 70-100 Blood Urea Nitrogen 13 mg/dL N 6-24 Creatinine 0.71 mg/dL N 0.51-0.95 BUN/Creatinine Ratio 18.3 N 8-20 Calcium 9.6 mg/dL N 8.6-10.3 Total Protein 6.7 g/dL N 6.4-8.9 Albumin 3.9 g/dL N 3.2-5.2 Globulin 2.8 g/dL N 2-4 Albumin/Globulin Ratio 1.4 N 1-3 Total Bilirubin 0.30 mg/dL N 0.2-1.0 Alkaline Phosphatase 45 U/L N 34-104 Alt 11 U/L N 7-52 Ast 16 U/L N 13-39 Egfr Non- 84.0 >60 Egfr 108.0 >60 25 Laboratory test 08/25/2017 [facility] Erythrocyte Sed 37 mm/Hr High 0-30 26 finding [phone] Rate Vitamin D Total 25(Oh) 22.5 ng/mL N 20-50 27 C Reactive Protein 8.66 mg/L High < 5.00 28 Inr/Protime 08/19/2017 [facility] Inr 1.83 High 0.77-1.02 [phone] Inr/Protime 08/12/2017 [facility] Inr 2.79 High 0.77-1.02 29 [phone] Laboratory test 08/01/2017 [facility] C Reactive 16.10 High < 5.00 30 finding [phone] Protein mg/L Erythrocyte Sed Rate 41 mm/Hr High 0-30 Inr/Protime 07/31/2017 [facility] Inr 1.89 High 0.77-1.02 31 [phone] Inr/Protime 07/10/2017 [facility] Inr 2.22 High 0.89-1.11 [phone] Inr/Protime 06/26/2017 [facility] Inr 2.70 High 0.89-1.11 [phone] Inr/Protime 06/19/2017 [facility] Inr 1.91 High 0.89-1.11 [phone] 1 Normal Range 180 to 914 Indeterminate Range 145 to 180 Deficient Range <145 2 Because ethnic data is not always readily available, this report includes an eGFR for both -Americans and non- Americans. The National Kidney Disease Education Program (NKDEP) does not endorse the use of the MDRD equation for patients that are not between the ages of 18 and 70, are , have extremes of body size, muscle mass, or nutritional status, or are non- or non-. According to the National Kidney Foundation, irrespective of diagnosis, the stage of the disease is based on the level of kidney function: Stage Description GFR(mL/min/1.73 m(2)) 1 Kidney damage with normal or decreased GFR 90 2 Kidney damage with mild decrease in GFR 60-89 3 Moderate decrease in GFR 30-59 4 Severe decrease in GFR 15-29 5 Kidney failure <15 (or dialysis) 3 Therapeutic target for the treatment of diabetes mellitus patients is <7% HBA1C, and in selective patients <6.0%. Please refer to [place] [employer] diabetic care guidelines for further information. 4 SEE RESULT BELOW Name: JANNY ROJAS : [address]: Michelle Allen NP Acct: [id number] Unit: [id number] AGE: 63 Location: [facility] Re08/21/18 SEX: F Status: REG REF SPEC: [id number] LUZMA: 08/21/[address]: Michelle Allen DECORATION CHECKER REQ: [id number] RECD: 08/21/18 STATUS: SOUT _ ORDERED: MELINDA THIN LAYER COMMENTS: [id number] FINAL DIAGNOSIS Vulva scraping: -- Benign squamous epithelium with acute inflammation. Vulva cytologic material CLINICAL HISTORY Vulva GROSS DESCRIPTION Received in Thin Prep vial. Signed by and Reported on: Parveen Maria MD 4001 END OF REPORT DEPARTMENT OF PATHOLOGY, [address] [place] [id number] Parveen Maria M.D. Director [facility] # [id number] 5 Because ethnic data is not always readily available, this report includes an eGFR for both -Americans and non- Americans. The National Kidney Disease Education Program (NKDEP) does not endorse the use of the MDRD equation for patients that are not between the ages of 18 and 70, are , have extremes of body size, muscle mass, or nutritional status, or are non- or non-. According to the National Kidney Foundation, irrespective of diagnosis, the stage of the disease is based on the level of kidney function: Stage Description GFR(mL/min/1.73 m(2)) 1 Kidney damage with normal or decreased GFR 90 2 Kidney damage with mild decrease in GFR 60-89 3 Moderate decrease in GFR 30-59 4 Severe decrease in GFR 15-29 5 Kidney failure <15 (or dialysis) 6 Therapeutic target for the treatment of diabetes mellitus patients is <7% HBA1C, and in selective patients <6.0%. Please refer to [place] [employer] diabetic care guidelines for further information. 7 SEE RESULT BELOW Name: ROGERSJANNY Claros : [address]: Michelle Allen NP Acct: [id number] Unit: [id number] AGE: 62 Location: [facility] Re05/04/18 SEX: F Status: REG REF SPEC: [id number] LUZMA: 05/04/18-37[address] [facility] [address]: Michelle Allen NP REQ: [id number] RECD: 05/04/18 STATUS: COMP _ S[facility] ORDERED: Urine Culture COMMENTS: [id number] Urine Source: Random Procedure Result Reported Site Urine Culture Final 05/05/18- 1628 ML Few Enterobacteriacae; possible contamination. * ML - Main Lab . END OF REPORT DEPARTMENT OF PATHOLOGY, [address] [place] [address] Parveen Maria M.D. Director [facility] # [id number] SEE RESULT BELOW Name: JANNY ROJAS : [address]: Jenna Berry NP Acct: [id number] Unit: [id number] AGE: 62 Location: [facility] Re02/19/18 SEX: F Status: REG REF SPEC: [id number] LUZMA: 02/19/18-[address] [facility] [address]: Jenna Berry NP REQ: [id number] RECD: 02/19/18 STATUS: COMP _ SOURCE: URINE SPDESC: ORDERED: Urine Culture COMMENTS: [id number] Procedure Result Reported Site Urine Culture Final 02/21/18- 1242 ML No growth of clinically significant organisms * ML - Main Lab . END OF REPORT DEPARTMENT OF PATHOLOGY, [address] [place] [address] Parveen Maria M.D. Director [facility] # [id number] 9 Because ethnic data is not always readily available, this report includes an eGFR for both -Americans and non- Americans. The National Kidney Disease Education Program (NKDEP) does not endorse the use of the MDRD equation for patients that are not between the ages of 18 and 70, are , have extremes of body size, muscle mass, or nutritional status, or are non- or non-. According to the National Kidney Foundation, irrespective of diagnosis, the stage of the disease is based on the level of kidney function: Stage Description GFR(mL/min/1.73 m(2)) 1 Kidney damage with normal or decreased GFR 90 2 Kidney damage with mild decrease in GFR 60-89 3 Moderate decrease in GFR 30-59 4 Severe decrease in GFR 15-29 5 Kidney failure <15 (or dialysis) 10 Therapeutic target for the treatment of diabetes mellitus patients is <7% HBA1C, and in selective patients <6.0%. Please refer to [place] [employer] diabetic care guidelines for further information. 11 Because ethnic data is not always readily available, this report includes an eGFR for both -Americans and non- Americans. The National Kidney Disease Education Program (NKDEP) does not endorse the use of the MDRD equation for patients that are not between the ages of 18 and 70, are , have extremes of body size, muscle mass, or nutritional status, or are non- or non-. According to the National Kidney Foundation, irrespective of diagnosis, the stage of the disease is based on the level of kidney function: Stage Description GFR(mL/min/1.73 m(2)) 1 Kidney damage with normal or decreased GFR 90 2 Kidney damage with mild decrease in GFR 60-89 3 Moderate decrease in GFR 30-59 4 Severe decrease in GFR 15-29 5 Kidney failure <15 (or dialysis) 12 Desirable: <150 Borderline High: 150-199 High: 200-499 Very High: >500 13 Desirable: <200 Borderline High: 200-239 High: >239 14 Low: <40 Desirable: 40-60 High: >60 15 Desirable: <100 Near Optimal: 100-129 Borderline High: 130-159 High: 160-189 Very High: >189 16 FASTING 17 Therapeutic target for the treatment of diabetes mellitus patients is <7% HBA1C, and in selective patients <6.0%. Please refer to [place] [employer] diabetic care guidelines for further information. 18 SEE RESULT BELOW Name: JANNY ROJAS [place] : [address]: Jenna Berry NP Acct: [id number] Unit: [id number] AGE: 62 Location: [facility] Re12/22/17 SEX: F Status: REG REF SPEC: [id number] LUZMA: 12/22/[address]: Jenna Berry NP REQ: [id number] RECD: 12/22/17 STATUS: SOUT _ ORDERED: TP IMAGE ANALYS, HPV/Thin Prep COMMENTS: [id number] Negative for Intraepithelial lesion or Malignancy A. Ectocervical/Endocervical Specimen Adequacy: Satisfactory of evaluation Transformation zone component cannot be definitely identified due to presence of atrophy or other hormonal changes Patient Information: HPV: High risk HPV RNA testing regardless of pap results. Actual Specimen Date: 12/22/17 Other Pertinent History: No History Given Date Time Test Result Flag (u) Normal Range 12/22/17 0916 @ HPV RNA Negative Negative @ @ The high-risk HPV types detected by the assay include: 16, @ 18, 31, 33, 35, 39, 45, 51, 52, 56, 58, 59, 66, and 68. Signed by and Reported on: TITUS Peng(ASCP) 1344 This Pap test was evaluated with the assistance of the [employer] Test Imaging System. Due to cytologic findings at the facility maintenance mechanic microscope, comprehensive manual rescreening by a [employer] Specialist may be required. The Pap Smear is a screening test designed to aid in the detection of premalignant and malignant conditions of the uterine cervix. It is not a diagnostic procedure and should not be used as the sole means of detecting cervical cancer. Both false- positive and false- negative reports do occur. Depending on your risk status, a Pap smear should be obtained and evaluated every 1-3 years. END OF REPORT DEPARTMENT OF PATHOLOGY, [address] [place] [address] Parveen Maria M.D. Director [facility] # [id number] 20 Because ethnic data is not always readily available, this report includes an eGFR for both -Americans and non- Americans. The National Kidney Disease Education Program (NKDEP) does not endorse the use of the MDRD equation for patients that are not between the ages of 18 and 70, are , have extremes of body size, muscle mass, or nutritional status, or are non- or non-. According to the National Kidney Foundation, irrespective of diagnosis, the stage of the disease is based on the level of kidney function: Stage Description GFR(mL/min/1.73 m(2)) 1 Kidney damage with normal or decreased GFR 90 2 Kidney damage with mild decrease in GFR 60-89 3 Moderate decrease in GFR 30-59 4 Severe decrease in GFR 15-29 5 Kidney failure <15 (or dialysis) 21 Therapeutic target for the treatment of diabetes mellitus patients is <7% HBA1C, and in selective patients <6.0%. Please refer to [place] [employer] diabetic care guidelines for further information. 22 [id number] 23 [id number] 24 SEE RESULT BELOW Name: JANNY ROJAS : [address]: Lb Manzo MD Acct: [id number] Unit: [id number] AGE: 62 Location: [facility] Re09/22/17 SEX: F Status: REG REF SPEC: [id number] LUZMA: 09/22/17- SUBM DR: Lb Manzo MD REQ: [id number] RECD: 09/22/17 STATUS: EMI PEARL DR: Clarence Chau MD _ ORDERED: LEVEL 4 COMMENTS: [id number] FINAL DIAGNOSIS Temporal artery, left superficial, biopsy: -- Benign arterial tissue with no significant pathologic abnormalities; see comment. COMMENT: Histologic sections show a segment of muscular artery with an intact internal elastic lamina and no evidence of significant inflammation. Partially treated temporal arteritis may have minimal or absent histologic findings. Clinical-pathologic correlation is recommended. CLINICAL HISTORY No history given GROSS DESCRIPTION The specimen is received in formalin labeled, Left Superficial Temporal Artery, and consists of a 2.0 by up to 0.2 cm valenzuela-pink tubular rubbery tissue fragment with a single collateral 0.7 cm from one end measuring 0.6 x 0.1 cm. The specimen is inked, serially sectioned and entirely submitted in one cassette Signed (signature on file) Ying Carpenter MD 0927 END OF REPORT * ML=Testing performed at Main Lab DEPARTMENT OF PATHOLOGY, [address] [place] [address] Parveen Maria M.D. Director [facility] # [id number] 25 Because ethnic data is not always readily available, this report includes an eGFR for both -Americans and non- Americans. The National Kidney Disease Education Program (NKDEP) does not endorse the use of the MDRD equation for patients that are not between the ages of 18 and 70, are , have extremes of body size, muscle mass, or nutritional status, or are non- or non-. According to the National Kidney Foundation, irrespective of diagnosis, the stage of the disease is based on the level of kidney function: Stage Description GFR(mL/min/1.73 m(2)) 1 Kidney damage with normal or decreased GFR 90 2 Kidney damage with mild decrease in GFR 60-89 3 Moderate decrease in GFR 30-59 4 Severe decrease in GFR 15-29 5 Kidney failure <15 (or dialysis) 26 [id number] 27 [id number] 28 Acute inflammation: >10.00 29 [id number] 30 Acute inflammation: >10.00 31 Please note the change in INR reference range effective 17. Procedures Date Code Description Status 12/24/2018 29149 Anticoagulant MGMT For Patient Taking Warfarin, Inc Completed Review & Intr 12/17/2018 24251 Anticoagulant MGMT For Patient Taking Warfarin, Inc Completed Review & Intr 12/09/2018 81429 Anticoagulant MGMT For Patient Taking Warfarin, Inc Completed Review & Intr 12/07/2018 09945 Anticoagulant MGMT For Patient Taking Warfarin, Inc Completed Review & Intr 11/26/2018 19944 Anticoagulant MGMT For Patient Taking Warfarin, Inc Completed Review & Intr 11/19/2018 93525 Anticoagulant MGMT For Patient Taking Warfarin, Inc Completed Review & Intr 11/12/2018 93780 Anticoagulant MGMT For Patient Taking Warfarin, Inc Completed Review & Intr 11/06/2018 18391 Anticoagulant MGMT For Patient Taking Warfarin, Inc Completed Review & Intr 10/29/2018 44468 Anticoagulant MGMT For Patient Taking Warfarin, Inc Completed Review & Intr 10/21/2018 61560 Anticoagulant MGMT For Patient Taking Warfarin, Inc Completed Review & Intr 10/14/2018 05189 Anticoagulant MGMT For Patient Taking Warfarin, Inc Completed Review & Intr 10/07/2018 50834 Anticoagulant MGMT For Patient Taking Warfarin, Inc Completed Review & Intr 10/01/2018 71918 Anticoagulant MGMT For Patient Taking Warfarin, Inc Completed Review & Intr 09/23/2018 43492 Anticoagulant MGMT For Patient Taking Warfarin, Inc Completed Review & Intr 09/16/2018 38366 Anticoagulant MGMT For Patient Taking Warfarin, Inc Completed Review & Intr 09/09/2018 68731 Anticoagulant MGMT For Patient Taking Warfarin, Inc Completed Review & Intr 09/03/2018 05570 Anticoagulant MGMT For Patient Taking Warfarin, Inc Completed Review & Intr 08/27/2018 53739 Anticoagulant MGMT For Patient Taking Warfarin, Inc Completed Review & Intr 08/20/2018 32458 Anticoagulant MGMT For Patient Taking Warfarin, Inc Completed Review & Intr 08/12/2018 44556 Anticoagulant MGMT For Patient Taking Warfarin, Inc Completed Review & Intr 07/29/2018 43616 Anticoagulant MGMT For Patient Taking Warfarin, Inc Completed Review & Intr 07/22/2018 93740 Anticoagulant MGMT For Patient Taking Warfarin, Inc Completed Review & Intr 07/01/2018 09788 Anticoagulant MGMT For Patient Taking Warfarin, Inc Completed Review & Intr 06/25/2018 33462 Anticoagulant MGMT For Patient Taking Warfarin, Inc Completed Review & Intr 06/11/2018 97529 Anticoagulant MGMT For Patient Taking Warfarin, Inc Completed Review & Intr 06/03/2018 94489 Anticoagulant MGMT For Patient Taking Warfarin, Inc Completed Review & Intr 05/28/2018 27264 Anticoagulant MGMT For Patient Taking Warfarin, Inc Completed Review & Intr 05/20/2018 44260 Anticoagulant MGMT For Patient Taking Warfarin, Inc Completed Review & Intr 05/06/2018 08513 Anticoagulant MGMT For Patient Taking Warfarin, Inc Completed Review & Intr 04/22/2018 59903 Anticoagulant MGMT For Patient Taking Warfarin, Inc Completed Review & Intr 04/15/2018 70590 Anticoagulant MGMT For Patient Taking Warfarin, Inc Completed Review & Intr 04/08/2018 02899 Anticoagulant MGMT For Patient Taking Warfarin, Inc Completed Review & Intr 04/01/2018 18530 Anticoagulant MGMT For Patient Taking Warfarin, Inc Completed Review & Intr 03/25/2018 51118 Anticoagulant MGMT For Patient Taking Warfarin, Inc Completed Review & Intr 03/18/2018 79726 Anticoagulant MGMT For Patient Taking Warfarin, Inc Completed Review & Intr 03/12/2018 33997 Anticoagulant MGMT For Patient Taking Warfarin, Inc Completed Review & Intr 02/26/2018 05540 Anticoagulant MGMT For Patient Taking Warfarin, Inc Completed Review & Intr 06/11/2017 [id number] Mammogram Completed 08/11/2015 [id number] Colonoscopy Completed Encounters Type Date Location Provider Dx Diagnosis Office Visit 10/12/2018 Main Office Clarence Zamudio, Z01.818 Encounter for other 5:00p preprocedural examination E11.40 Type 2 diabetes mellitus with diabetic neuropathy, unsp I10 Essential (primary) hypertension Office Visit 10/05/2018 10:00a Main Office Michelle Allen E11.40 Type 2 diabetes DECORATION CHECKER mellitus with diabetic neuropathy, unsp I48.0 Paroxysmal atrial fibrillation I10 Essential (primary) hypertension Office Visit 08/21/2018 3:15p [facility] Michelle Allen, R21 Rash and other DECORATION CHECKER nonspecific skin eruption Office Visit 06/30/2018 9:00a Main Office Michelle Allen E11.40 Type 2 diabetes DECORATION CHECKER mellitus with diabetic neuropathy, unsp Office Visit 05/04/2018 3:15p Main Office Michelle Allen, N39.0 Urinary tract DECORATION CHECKER infection, site not specified Office Visit 03/23/2018 11:15a Main Office Jenna E11.40 Type 2 diabetes Shortle, DECORATION CHECKER mellitus with diabetic neuropathy, unsp Office Visit 02/19/2018 2:30p Main Office Jenna E11.40 Type 2 diabetes Shortle, DECORATION CHECKER mellitus with diabetic neuropathy, unsp Office Visit 12/22/2017 8:00a Main Office Jenna Z00.00 Encntr for Shortle, DECORATION CHECKER general adult medical exam w/o abnormal findings E11.40 Type 2 diabetes mellitus with diabetic neuropathy, unsp Office Visit 11/25/2017 11:00a Main Office Jenna E11.40 Type 2 diabetes Shortle, DECORATION CHECKER mellitus with diabetic neuropathy, unsp Office Visit 10/20/2017 9:30a Main Office Jenna E11.40 Type 2 diabetes Shortle, DECORATION CHECKER mellitus with diabetic neuropathy, unsp Office Visit 08/25/2017 10:30a Main Office Jenna R51 Headache Shortle, DECORATION CHECKER Office Visit 06/19/2017 2:30p Main Office Dayana Elaine E11.40 Type 2 diabetes SEWER BRICKLAYER-C mellitus with diabetic neuropathy, unsp I10 Essential (primary) hypertension E78.00 Pure hypercholesterolemia, unspecified Z51.81 Encounter for therapeutic drug level monitoring Z23 Encounter for immunization Plan of Treatment 12/28/2018 - Michelle Allen, NPZ00.00 Encounter for general adult medical examination without abnoFollow up:.R13.10 Dysphagia, unspecifiedFollow up:Refer to GI for evaluation of GI and break-through GERD symptoms.
[2019-01-10 13:58] LABS: ABS Eosinophils 0.1 10^3/ul (0-0.6); ABS Monocytes 0.4 10^3/ul (0-0.8); ABS Neutrophils 3.5 10^3/ul (1.5-7.7); Eosinophil % 2.1 %; Hematocrit 34 % (35-47); Hemoglobin 11.1 g/dL (12.0-16.0); Lymphocyte % 32.8 %; Mean Corpuscular HGB Conc 33 g/dL (31-36); Mean Corpuscular Hemoglobin 28 pg (27-31); Mean Corpuscular Volume 85 fL (80-97); Mean Platelet Volume 6.2 fL (7.4-10.4); Nucleated Red Blood Cells % 0.1; Platelet Count 297 10^3/uL (150-450); Red Blood Count 3.94 10^6 /uL (3.70-4.87); Red Cell Distribution Width 15 % (10.5-15); White Blood Count 6.1 10^3/uL (3.5-10.8)
[2019-01-10 14:06] LABS: Activated Partial Thrombo Time 52.3 seconds (26.0-38.0); INR 2.33 (0.82-1.09)
[2019-01-10 14:14] LABS: Albumin 4.2 g/dL (3.2-5.2); Albumin/Globulin Ratio 1.3 (1-3); BUN/Creatinine Ratio 17.6 (8-20); C Reactive Protein 11.62 mg/L (<8.01); Calcium 9.8 mg/dL (8.6-10.3); EGFR African American 96.5 (>60); EGFR Non-African American 79.8 (>60); Globulin 3.3 g/dL (2-4); Potassium 4.6 mmol/L (3.5-5.0); Total Bilirubin 0.3 mg/dL (0.2-1.0); Total Protein 7.5 g/dL (6.4-8.9)
[2019-01-10 16:08] VITALS: BP 107/52
== END | disposition home or self-care (01) ==
LOC: ED 12:42
DX: R51 Headache (principal); S80.212A Abrasion, left knee, initial encounter; S80.211A Abrasion, right knee, initial encounter; L08.9 Local infection of the skin and subcutaneous tissue, unspecified; W18.09XA Striking against other object with subsequent fall, initial encounter; Y92.9 Unspecified place or not applicable; L98.9 Disorder of the skin and subcutaneous tissue, unspecified; J32.9 Chronic sinusitis, unspecified; R42 Dizziness and giddiness; E11.9 Type 2 diabetes mellitus without complications; I25.10 Atherosclerotic heart disease of native coronary artery without angina pectoris; Z86.711 Personal history of pulmonary embolism; Z79.01 Long term (current) use of anticoagulants; K90.0 Celiac disease; Z96.641 Presence of right artificial hip joint; Z91.041 Radiographic dye allergy status; Z91.040 Latex allergy status; Z88.5 Allergy status to narcotic agent; Z91.018 Allergy to other foods; Z91.048 Other nonmedicinal substance allergy status; Z87.891 Personal history of nicotine dependence
CPT/HCPCS: 36415; 70450; 80053; 85025; 85610; 85730; 86140; 99282; A9270-GY

== ENCOUNTER 2019-01-18 18:06 | Emergency (ER) | payer MEDICARE ==
--- OUTSIDE RECORDS SUMMARY | 2019-01-18 18:12 | XMS REPORT | Continuity of Care Document ---
:1955 External Reference #:[id number] Author Name Michelle Allen NP Address [address] [place] [address] Care Team Providers Name Role Phone Michelle Allen NP Care Team Information Apron Cleaner Unavailable Payers Date Identification Numbers Payment Provider Subscriber Expires: 2018 Policy Number: [id number] Medicare - Bswny Umd Janny Rojas PayID: [id number] [address] [place] [address] Effective: 2017 Policy Number: [id number] Medicaid After Medicare Janny Rojas Expires: 2017 Group Name: 2 1 [address] PayID: [id number] [place] [address] Effective: 2018 Policy Number: [id number] [facility] Janny Rojas Group Number: [id number] [address] Group Name: [place] [address] PayID: [id number] Problems Active Problems Provider Date Type 2 [...] for 2 Unknown yrs Smoking Status Reviewed: 01/11/19 Former Cigarette Smoker 1/2 pack a day for 2 yrs ETOH Use Occasionally consumes alcohol Tobacco Use Start: Unknown End: Patient is a former smoker Unknown Allergies, Adverse Reactions, Alerts Active Allergies Reaction Severity Comments Date Strawberries 06/19/2017 Amoxicillin 06/19/2017 Glipizide 06/19/2017 Contrast Dye 06/19/2017 Codeine 06/19/2017 Latex 12/28/2018 Medications Active Medications SIG Qnty Indications Ordering Date Provider Tramadol HCL Take 1 tablet by 30tabs Michelle Allen, 01/11/2019 50mg mouth every 6 OVERHEAD DOOR TECHNICIAN Tablets hours as needed for pain Nateglinide take one tablet 90tabs E11.40 Michelle Allen, 03/23/2018 60mg by mouth three OVERHEAD DOOR TECHNICIAN Tablets times a day with meals Irbesartan take one tablet 30tabs Clarence 03/02/2018 150mg by mouth every MD Lizz Tablets day for blood pressure Fish Oil as directed Dayana Elaine, 06/19/2017 1000mg UPSCALE SECURITY OFFICER-C Capsules Vitamin C 2 po qd Dayana Elaine, 06/19/2017 500mg UPSCALE SECURITY OFFICER-C Capsules Pressure Two Eye one capsule by Unknown Vitamin mouth twice a day Nitroglycerin Place One Tablet Unknown 0.4mg Under The Tongue Tablets Sub Every 5 Minutes For Up To 3 Doses as Needed Forchest Pain. If Chest Pain Still Persists Contact 911 Warfarin Sodium Take 1 Tablet By 30tabs Jenna 5mg Mouth 4 Times A Shortle, OVERHEAD DOOR TECHNICIAN Tablets Week And 1/2 Tablet 3 Times A Week as Directed Oxycodone-Acetaminoph Take One Tablet Unknown en By Mouth Twice A 5-325mg Tablets Day as Needed For Pain Maximum Daily Onetouch Ultra Blue use to test two 100units E11.40 Jenna times a day (dx: YUNG Berry Strips e11.40) Gabapentin take two 450caps Michelle Allen, 300mg capsules by OVERHEAD DOOR TECHNICIAN Capsules mouth every morning and take three capsules by mouth every evening Warfarin Sodium 5mg 4 days per 90tabs Michelle Allen, 5mg week and 2.5mg 3 OVERHEAD DOOR TECHNICIAN Tablets days per week or as directed Omeprazole 1 po qd Unknown 40mg Capsules DR Metformin HCL Take 1 Tablet By 60tabs Clarence 1000mg Mouth Two Times MD Lizz Tablets Daily Citalopram 1 by mouth every 30tabs Michelle Allen, Hydrobromide day OVERHEAD DOOR TECHNICIAN 20mg Tablets Baclofen Take 1 Tablet By 30tabs Clarence 20mg Tablets Mouth Every Day MD Lizz Simvastatin 1 tab by mouth 30tabs Michelle Allen, 40mg every at bedtime OVERHEAD DOOR TECHNICIAN Tablets History Medications Nitrofurantoin Monohyd Take 1 capsule by 14caps Michelle Allen, OVERHEAD DOOR TECHNICIAN 2017 - Macro mouth every 12 08/21/2018 100mg Capsules hours for 7 days with food for urinary tract infection Repaglinide Take One Tablet By 90tabs Jenna Berry, 02/03/2018 - 0.5mg Tablets Mouth Three Times OVERHEAD DOOR TECHNICIAN 02/05/2018 A Day 15 To 30 Minutes Before Meals For Type 2 Diabetes Melatonin [facility] Kristi, 12/29/2017 - 1mg Capsules OVERHEAD DOOR TECHNICIAN 12/29/2017 Repaglinide Take One Tablet By 90tabs Jenna Berry, 11/28/2017 - 0.5mg Tablets Mouth Three Times OVERHEAD DOOR TECHNICIAN 11/28/2017 A Day 15 To 30 Minutes Before Meals For Type 2 Diabetes Januvia take one tablet by 30tabs Michelle Allen, OVERHEAD DOOR TECHNICIAN 11/28/2017 - 100mg Tablets mouth every day 12/28/2018 for type 2 diabetes Repaglinide Take 1 tablet by 90tabs Jenna Berry, 10/31/2017 - 0.5mg Tablets mouth 3 times per OVERHEAD DOOR TECHNICIAN 11/25/2017 day 15 to 30 minutes before meals for Type 2 diabetes Prednisone 2 tabs by mouth 28tabs Jenna Berry, 08/25/2017 - 20mg Tablets daily (in the OVERHEAD DOOR TECHNICIAN 10/20/2017 morning) Nateglinide 1 tab po tid 90tabs Unknown - 60mg Tablets 02/19/2018 Tradjenta Take 1 Tablet By Unknown - 5mg Tablets Mouth Every Day 11/25/2017 Valsartan take one tablet by 30tabs Clarence Zamudio, - 80mg Tablets mouth every day 03/02/2018 Immunizations CPT Code Status Date Vaccine Lot # [id number] Given 12/28/2018 Pneumovax 23 (PPSV23) 65+ years or high risk 2 to [id number] 66 year old 35362 Given 12/28/2018 Tdap (Adacel) [id number] Given 04/11/2018 Influenza Virus Vaccine, Quadrivalent, 3 Yr > Quad, Preserv Free 15544 Given 06/19/2017 Prevnar-13 Pneumococcal Conjugate Vaccine [id number] Given 05/28/2017 Influenza Virus Vaccine, Quadrivalent, 3 Yr > Quad, Preserv Free Vital Signs Date Vital Result Comment 01/11/2019 1:38pm Weight 188.00 lb Weight 85.277 kg BP Systolic 130 mmHg BP Diastolic 72 mmHg Heart Rate 72 /min Body Temperature 98.4 F Respiratory Rate 16 /min 12/28/2018 2:46pm Weight 186.00 lb Weight 84.370 [...] Date Facility Test Result H/L Range Note CBC Auto Diff 01/10/2019 [facility] White Blood 6.1 10^3/uL N 3.5-10.8 [phone] Count Red Blood Count 3.94 10^6/uL N 3.70-4.87 Hemoglobin 11.1 g/dL Low 12.0-16.0 Hematocrit 34 % Low 35-47 Mean Corpuscular Volume 85 fL N 80-97 Mean Corpuscular Hemoglobin 28 pg N 27-31 Mean Corpuscular HGB Conc 33 g/dL N 31-36 Red Cell Distribution Width 15 % N 10.5-15 Platelet Count 297 10^3/uL N 150-450 Mean Platelet Volume 6.2 fL Low 7.4-10.4 Abs Neutrophils 3.5 10^3/uL N 1.5-7.7 Abs Lymphocytes 2.0 10^3/uL N 1.0-4.8 Abs Monocytes 0.4 10^3/uL N 0-0.8 Abs Eosinophils 0.1 10^3/uL N 0-0.6 Abs Basophils 0.0 10^3/uL N 0-0.2 Abs Nucleated RBC 0.0 10^3/uL Granulocyte % 57.5 % Lymphocyte % 32.8 % Monocyte % 7.1 % Eosinophil % 2.1 % Basophil % 0.5 % Nucleated Red Blood Cells % 0.1 Inr/Protime 01/10/2019 [facility] Inr 2.33 High 0.82-1.09 1 [phone] Laboratory test 01/10/2019 [facility] Partial 52.3 High 26.0-38.0 finding [phone] Thrombo seconds Time PTT Comp Metabolic 01/10/2019 [facility] Sodium 136 mmol/ L N 135-145 Panel [phone] Potassium 4.6 mmol/L N 3.5-5.0 Chloride 100 mmol/L Low 101-111 Co2 Carbon Dioxide 31 mmol/L N 22-32 Anion Gap 5 mmol/L N 2-11 Glucose 248 mg/dL High 70-100 Blood Urea Nitrogen 13 mg/dL N 6-24 Creatinine 0.74 mg/dL N 0.51-0.95 BUN/Creatinine Ratio 17.6 N 8-20 Calcium 9.8 mg/dL N 8.6-10.3 Total Protein 7.5 g/dL N 6.4-8.9 Albumin 4.2 g/dL N 3.2-5.2 Globulin 3.3 g/dL N 2-4 Albumin/Globulin Ratio 1.3 N 1-3 Total Bilirubin 0.30 mg/dL N 0.2-1.0 Alkaline Phosphatase 56 U/L N 34-104 Alt 16 U/L N 7-52 Ast 16 U/L N 13-39 Egfr Non- 79.8 >60 Egfr 96.5 >60 2 Laboratory 01/10/2019 [facility] C Reactive 11.62 High <8.01 test finding [phone] Protein mg/L Laboratory 01/06/2019 Other International 1.8 test finding Normalized Ratio Laboratory 12/30/2018 Other International 3.2 test finding Normalized Ratio Laboratory 12/30/2018 Other International 3.1 test finding Normalized Ratio Laboratory 12/28/2018 [facility] Hemoglobin A1c 7.9 % High 4.0-5.6 3, 4 test finding [phone] CBC Auto Diff 12/28/2018 [facility] White Blood Count 7.1 N 3.5-10.8 [phone] 10^3/uL Red Blood Count 4.13 10^6/uL N 3.70-4.87 Hemoglobin 11.4 g/dL Low 12.0-16.0 Hematocrit 35 % N 35-47 Mean Corpuscular Volume 85 fL N 80-97 Mean Corpuscular Hemoglobin 28 pg N 27-31 Mean Corpuscular HGB Conc 33 g/dL N 31-36 Red Cell Distribution Width 15 % N 10.5-15 Platelet Count 357 10^3/uL N 150-450 Mean Platelet Volume 6.7 fL Low 7.4-10.4 Abs Neutrophils 3.5 10^3/uL N 1.5-7.7 Abs Lymphocytes 3.0 10^3/uL N 1.0-4.8 Abs Monocytes 0.5 10^3/uL N 0-0.8 Abs Eosinophils 0.1 10^3/uL N 0-0.6 Abs Basophils 0.0 10^3/uL N 0-0.2 Abs Nucleated RBC 0.0 10^3/uL Granulocyte % 49.6 % Lymphocyte % 41.8 % Monocyte % 6.7 % Eosinophil % 1.6 % Basophil % 0.3 % Nucleated Red Blood Cells % 0.1 Lipid Profile 12/28/2018 [facility] Triglycerides 348 mg/dL 5 (Trig/Chol/HDL) [phone] Cholesterol 180 mg/dL 6 HDL Cholesterol 55.2 mg/dL 7 LDL Cholesterol 55 mg/dL 8 Comp Metabolic Panel 12/28/2018 [facility] Sodium 139 mmol/L N 135-145 [phone] Potassium 4.0 mmol/L N 3.5-5.0 Chloride 100 mmol/L Low 101-111 Co2 Carbon Dioxide 31 mmol/L N 22-32 Anion Gap 8 mmol/L N 2-11 Glucose 181 mg/dL High 70-100 Blood Urea Nitrogen 13 mg/dL N 6-24 Creatinine 0.80 mg/dL N 0.51-0.95 BUN/Creatinine Ratio 16.3 N 8-20 Calcium 10.1 mg/dL N 8.6-10.3 Total Protein 7.3 g/dL N 6.4-8.9 Albumin 4.5 g/dL N 3.2-5.2 Globulin 2.8 g/dL N 2-4 Albumin/Globulin Ratio 1.6 N 1-3 Total Bilirubin 0.30 mg/dL N 0.2-1.0 Alkaline Phosphatase 62 U/L N 34-104 Alt 17 U/L N 7-52 Ast 18 U/L N 13-39 Egfr Non- 72.9 >60 Egfr 88.2 >60 9 Laboratory test 12/23/2018 Other International 2.1 finding Normalized Ratio Laboratory test 12/18/2018 [facility] Vitamin B12 544 pg/mL N 180-91 10 finding [phone] Laboratory test 12/17/2018 Other International 1.9 finding Normalized Ratio Laboratory test 12/09/2018 Other International 1.8 finding Normalized Ratio Laboratory test 12/07/2018 Other International 1.6 finding Normalized Ratio Laboratory test 12/04/2018 Other International 1.6 finding Normalized Ratio Laboratory test 11/26/2018 Other International 1.9 finding Normalized Ratio Laboratory test 11/19/2018 Other International 1.8 finding Normalized Ratio Laboratory test 11/12/2018 Other International 2.3 finding Normalized Ratio Laboratory test 11/06/2018 Other International 2.7 finding Normalized Ratio Laboratory test 10/28/2018 Other International 2.8 finding Normalized Ratio Laboratory test 10/21/2018 Other International 2.9 finding Normalized Ratio Laboratory test 10/21/2018 Other International 2.9 finding Normalized Ratio Laboratory test 10/14/2018 Other International 3.7 finding Normalized Ratio Laboratory test 10/07/2018 Other International 4.2 finding Normalized Ratio Laboratory test 10/01/2018 Other International 3.0 finding Normalized Ratio CBC Auto Diff 09/28/2018 [facility] White Blood Count 7.4 N 3.5-10 [phone] 10^3/uL .8 Red Blood Count 3.95 10^6/uL [...] Nucleated Red Blood Cells % 0.1 Laboratory test 09/28/2018 [facility] Hemoglobin A1c 7.1 % High 4.0-5.6 11 finding [phone] (Glyco HGB) Comp Metabolic 09/28/2018 [facility] Sodium 139 N 135-145 Panel [phone] mmol/L Potassium 3.9 mmol/L N 3.5-5.0 Chloride 103 [...] Egfr Non- 86.5 >60 Egfr 104.7 >60 12 Laboratory test 09/23/2018 Other International 1.9 finding Normalized Ratio Laboratory test 09/16/2018 Other International 2.6 finding Normalized Ratio Laboratory test 09/09/2018 Other International 1.7 finding Normalized Ratio Laboratory test 09/02/2018 Other International 1.7 finding Normalized Ratio Laboratory test 08/27/2018 Other International 1.4 finding Normalized Ratio Laboratory test 08/21/2018 [facility] Cytology Non- Skirt Trimmer SEE RESULT 13 finding [phone] BELOW Laboratory test 08/20/2018 Other International 2.9 finding Normalized Ratio Laboratory test 08/13/2018 Other International 2.7 finding Normalized Ratio Laboratory test 08/12/2018 Other International 2.7 finding Normalized Ratio Laboratory test 08/05/2018 Other International 2.9 finding Normalized Ratio Laboratory test 07/29/2018 Other International 2.4 finding Normalized Ratio Laboratory test 07/22/2018 Other International 2.0 finding Normalized Ratio Laboratory test 07/15/2018 Other International 2.4 finding Normalized Ratio Laboratory test 07/08/2018 Other International 1.9 finding Normalized Ratio Laboratory test 07/01/2018 Other International 2.2 finding Normalized Ratio Laboratory test 06/25/2018 Other International 2.6 finding Normalized Ratio CBC Auto Diff 06/17/2018 [facility] White Blood Count 5.9 10^3/uL N 3.5-10 [phone] .8 Red Blood Count 3.87 10^6/uL Low 4.00-5.40 [...] 0-2 Nucleated Red Blood Cells % 0.1 Laboratory test 06/17/2018 Other International 2.5 finding Normalized Ratio Comp Metabolic 06/17/2018 [facility] Sodium 137 mmol/ L N 135-14 Panel [phone] Potassium 4.7 mmol/L N 3.5-5.0 Chloride 101 [...] Egfr Non- 79.8 >60 Egfr 96.5 >60 14 Laboratory test 06/17/2018 [facility] Hemoglobin A1c 7.8 % High 4.0-5.6 15 finding [phone] (Glyco HGB) Laboratory test 06/11/2018 Other International 2.4 finding Normalized Ratio Laboratory test 06/03/2018 Other International 1.9 finding Normalized Ratio Laboratory test 05/28/2018 Other International 2.0 finding Normalized Ratio Laboratory test 05/20/2018 Other International 2.2 finding Normalized Ratio Laboratory test 05/13/2018 Other International 1.9 finding Normalized Ratio Laboratory test 05/06/2018 Other International 1.8 finding Normalized Ratio Urine Culture 05/04/2018 [facility] Urine Culture SEE 16 And [phone] RESULT Sensitivities BELOW Urine DIP 05/04/2018 [facility] Leukocytes ++ Neg [phone] Urine Nitrites neg Neg Urobilinogen norm Norm Total Protein, Urine + Neg Urine pH 5 5-6 Urine Blood 250 High Neg Specific [place] 1.030 High 1.01-1.02 Urine Ketones neg Neg [...] finding Normalized Ratio Urine Culture And 02/19/2018 [facility] Urine Culture SEE RESULT 17 Sensitivities [phone] BELOW Urine DIP 02/19/2018 In House Lab Leukocytes ++ Neg [phone] - Urine Nitrites neg Neg Urobilinogen norm Norm Total Protein, Urine tr Neg Urine pH 5 5-6 Urine Blood neg Neg Specific [place] 1.020 1.01-1.02 Urine Ketones neg Neg Urine Bilirubin neg Neg Urine Glucose norm Norm Laboratory test 02/12/2018 Other International 2.1 finding Normalized Ratio CBC Auto Diff 02/10/2018 [facility] White Blood Count 7.7 N 3.5-10 [phone] 10^3/uL .8 Red Blood Count 3.95 10^6/uL [...] Cells % 0.1 Comp Metabolic Panel 02/10/2018 [facility] Sodium 141 mmol/L N 135-145 [phone] Potassium 4.4 mmol/L N 3.5-5.0 Chloride 103 [...] Egfr Non- 74.2 >60 Egfr 89.8 >60 18 Laboratory 02/10/2018 [facility] Hemoglobin A1c 7.0 % High 4.0-5.6 19 test finding [phone] Laboratory 02/04/2018 Other International 2.3 test finding Normalized Ratio Laboratory 01/29/2018 Other International 3.1 test finding Normalized Ratio Laboratory 01/21/2018 Other International 2.9 test finding Normalized Ratio Laboratory 01/14/2018 Other International 2.8 test finding Normalized Ratio Laboratory 01/07/2018 Other International 1.9 test finding Normalized Ratio Laboratory 01/01/2018 Other International 2.0 test finding Normalized Ratio Laboratory 12/24/2017 Other International 2.8 test finding Normalized Ratio Liver Function 12/23/2017 [facility] Direct Bilirubin 0.10 N 0.03-0.18 Panel [phone] mg/dL Indirect Bilirubin 0.2 mg/dL Low 0.3-1.0 Laboratory 12/23/2017 [facility] Hepatitis C Nonreactive Nonreactive 20 test finding [phone] Antibody Hemoglobin A1c (Glyco HGB) 6.9 % High 4.0-5.6 21 CBC Auto Diff 12/23/2017 [facility] White Blood 8.7 10^3/uL N 3.5-10.8 [phone] Count Red Blood Count 4.06 10^6/uL N [...] Red Blood Cells % 0.1 Comp Metabolic 12/23/2017 [facility] Sodium 138 mmol/ L Low 139-145 Panel [phone] Potassium 4.2 mmol/L N 3.5-5.0 Chloride 102 [...] Egfr Non- 93.0 >60 Egfr 119.6 >60 22 Lipid Profile 12/23/2017 [facility] Triglycerides 248 mg/dL 23 (Trig/Chol/HDL) [phone] Cholesterol 137 mg/dL 24 HDL Cholesterol 48.4 mg/dL 25 LDL Cholesterol 39 mg/dL 26 Urine Microalbumin 12/22/2017 [facility] Ur Microalbumin 21.1 mg/L Random [phone] (mg/L) Urine Creatinine 219.54 mg/dL Urine Microalbumin/Creatinine 9.6 ug/mg N <31 Laboratory test 12/22/2017 [facility] Cytology SEE RESULT 27 finding [phone] BELOW Laboratory test 12/17/2017 Other International 2.3 [...] finding Normalized Ratio CBC Auto Diff 10/20/2017 [facility] White Blood Count 8.6 10^3/uL N 3.5-1 28 [phone] 0.8 Red Blood Count 4.15 10^6/uL N [...] Cells % 0.1 Comp Metabolic Panel 10/20/2017 [facility] Sodium 140 mmol/L N 133-145 [phone] Potassium 4.2 mmol/L N 3.5-5.0 Chloride 103 [...] Egfr Non- 69.2 >60 Egfr 88.9 >60 29 Laboratory 10/20/2017 [facility] Hemoglobin A1c 8.2 % High 4.0-5.6 30 test finding [phone] Laboratory 10/15/2017 Other International 1.9 test finding Normalized Ratio Laboratory 10/09/2017 Other International 2.5 test finding Normalized Ratio Inr/Protime 10/02/2017 [facility] Inr 3.46 High 0.77-1.02 31 [phone] Laboratory 09/24/2017 Other International 1.4 test finding Normalized Ratio Laboratory 09/22/2017 [facility] Surgical SEE 32 , test finding [phone] Interface Order RESULT 33 BELOW Inr/Protime 09/09/2017 [facility] Inr 1.67 High 0.77-1.02 [phone] Inr/Protime 09/02/2017 [facility] Inr 3.21 High 0.77-1.02 [phone] Inr/Protime 08/25/2017 [facility] Inr 2.53 High 0.77-1.02 [phone] CBC Auto Diff 08/25/2017 [facility] White Blood 7.3 N 3.5-10.8 [phone] Count 10^3/uL Red Blood Count 4.02 10^6/uL [...] Cells % 0.1 Comp Metabolic Panel 08/25/2017 [facility] Sodium 138 mmol/L N 133-145 [phone] Potassium 4.4 mmol/L N 3.5-5.0 Chloride 102 [...] Egfr Non- 84.0 >60 Egfr 108.0 >60 34 Laboratory test 08/25/2017 [facility] Erythrocyte Sed 37 mm/Hr High 0-30 35 finding [phone] Rate Vitamin D Total 25(Oh) 22.5 ng/mL N 20-50 36 C Reactive Protein 8.66 mg/L High < 5.00 37 Inr/Protime 08/19/2017 [facility] Inr 1.83 High 0.77-1.02 [phone] Inr/Protime 08/12/2017 [facility] Inr 2.79 High 0.77-1.02 38 [phone] Laboratory test 08/01/2017 [facility] C Reactive 16.10 High < 5.00 39 finding [phone] Protein mg/L Erythrocyte Sed Rate 41 mm/Hr High 0-30 Inr/Protime 07/31/2017 [facility] Inr 1.89 High 0.77-1.02 40 [phone] Inr/Protime 07/10/2017 [facility] Inr 2.22 High 0.89-1.11 [phone] Inr/Protime 06/26/2017 [facility] Inr 2.70 High 0.89-1.11 [phone] Inr/Protime 06/19/2017 [facility] Inr 1.91 High 0.89-1.11 [phone] 1 Standard intensity warfarin therapeutic range: 2.0-3.0 High intensity warfarin therapeutic range: 2.5-3.5 2 Because ethnic data is not always [...] 5 Kidney failure <15 (or dialysis) 3 [id number] Therapeutic target for the treatment of diabetes mellitus patients is <7% HBA1C, and in selective patients <6.0%. Please refer to [place] [employer] diabetic care guidelines for further information. 5 Desirable: <150 Borderline High: 150-199 High: 200-499 Very High: >500 6 Desirable: <200 Borderline High: 200-239 High: >239 7 Low: <40 Desirable: 40-60 High: >60 8 Desirable: <100 Near Optimal: 100-129 Borderline High: 130-159 High: 160-189 Very High: >189 9 Because ethnic data is not always [...] 5 Kidney failure <15 (or dialysis) 10 Normal Range 180 to 914 Indeterminate Range 145 to 180 Deficient Range <145 11 Therapeutic target for the treatment of diabetes mellitus patients is <7% HBA1C, and in selective patients <6.0%. Please refer to [place] [employer] diabetic care guidelines for further information. 12 Because ethnic data is not always readily [...] 15-29 5 Kidney failure <15 (or dialysis) 13 SEE RESULT BELOW Name: JANNY ROJAS : [address]: Michelle Allen NP Acct: [id number] Unit: [id number] AGE: 63 Location: [facility] Re08/21/18 SEX: F Status: REG REF SPEC: [id number] LUZMA: 08/21/18-[address]: Michelle Allen OVERHEAD DOOR TECHNICIAN REQ: [id number] RECD: 08/21/18 STATUS: SOUT _ ORDERED: NG THIN LAYER COMMENTS: [id number] FINAL DIAGNOSIS Vulva scraping: -- Benign squamous epithelium with acute inflammation. Vulva cytologic material CLINICAL HISTORY Vulva GROSS DESCRIPTION Received in Thin Prep vial. Signed by and Reported on: Parveen Maria MD [id number] END OF REPORT DEPARTMENT OF PATHOLOGY, [address] [place] [address] Parveen Maria M.D. Director [facility] # [id number] 14 Because ethnic data is not always readily [...] 15-29 5 Kidney failure <15 (or dialysis) 15 Therapeutic target for the treatment of diabetes mellitus patients is <7% HBA1C, and in selective patients <6.0%. Please refer to [place] [employer] diabetic care guidelines for further information. 16 SEE RESULT BELOW Name: JANNY ROJAS [place] : [address]: Michelle Allen NP Acct: [id number] Unit: [id number] AGE: 62 Location: [facility] Re05/04/18 SEX: F Status: REG REF SPEC: [id number] LUZMA: 05/04/18-[address] [facility] [address]: Michelle Allen NP REQ: [id number] RECD: 05/04/18982 STATUS: COMP _ SOURCE: URINE SPDESC: ORDERED: Urine Culture COMMENTS: [id number] Urine Source: Random Procedure Result Reported Site Urine Culture Final 05/05/18- 1628 ML Few Enterobacteriacae; possible contamination. * ML - Main Lab . END OF REPORT DEPARTMENT OF PATHOLOGY, [address] [place] [address] Parveen Maria M.D. Director [facility] # [id number] 17 SEE RESULT BELOW Name: JANNY ROJAS : [address]: Jenna Berry NP Acct: [id number] Unit: [id number] AGE: 62 Location: [facility] Re02/19/18 SEX: F Status: REG REF SPEC: [id number] LUZMA: 02/19/18-[address]: Jenna Berry NP REQ: [id number] RECD: 02/19/18 STATUS: COMP _ SOURCE: URINE SPDESC: ORDERED: Urine Culture COMMENTS: [id number] Procedure Result Reported Site Urine Culture Final 02/21/18- 1242 ML No growth of clinically significant organisms * ML - Main Lab . END OF REPORT DEPARTMENT OF PATHOLOGY, [address] [place] [id number] Parveen Maria M.D. Director [facility] # [id number] 18 Because ethnic data is not always readily [...] 15-29 5 Kidney failure <15 (or dialysis) 19 Therapeutic target for the treatment of diabetes mellitus patients is <7% HBA1C, and in selective patients <6.0%. Please refer to [place] [employer] diabetic care guidelines for further information. 20 FASTING 21 Therapeutic target for the treatment of diabetes mellitus patients is <7% HBA1C, and in selective patients <6.0%. Please refer to [place] [employer] diabetic care guidelines for further information. 22 Because ethnic data is not always readily [...] 15-29 5 Kidney failure <15 (or dialysis) 23 Desirable: <150 Borderline High: 150-199 High: 200-499 Very High: >500 24 Desirable: <200 Borderline High: 200-239 High: >239 25 Low: <40 Desirable: 40-60 High: >60 26 Desirable: <100 Near Optimal: 100-129 Borderline High: 130-159 High: 160-189 Very High: >189 27 SEE RESULT BELOW Name: JANNY ROJAS : [address]: Jenna Berry NP Acct: [id number] Unit: [id number] AGE: 62 Location: [facility] Re12/22/17 SEX: F Status: REG REF SPEC: [id number] LUZMA: 12/22/[address] [facility] [address]: Jenna Berry NP REQ: [id number] RECD: 12/22/175236 STATUS: SOUT _ ORDERED: TP IMAGE ANALYS, HPV/Thin Prep COMMENTS: [id number] Negative for Intraepithelial lesion or Malignancy A. [...] Signed by and Reported on: TITUS Peng(ASCP) 134 This Pap test was evaluated with the assistance of the [employer] Test Imaging System. Due to cytologic findings at the event planning intern microscope, comprehensive manual rescreening by a Facial Operator may be required. The Pap Smear is [...] years. END OF REPORT DEPARTMENT OF PATHOLOGY, [address] [place] [address] Parveen Maria M.D. Director [facility] # [id number] 29 Because ethnic data is not always readily [...] 15-29 5 Kidney failure <15 (or dialysis) 30 Therapeutic target for the treatment of diabetes mellitus patients is <7% HBA1C, and in selective patients <6.0%. Please refer to [place] [employer] diabetic care guidelines for further information. 31 [id number] 33 SEE RESULT BELOW Name: JANNY ROJAS : [address]: Lb Manzo MD Acct: [id number] Unit: [id number] AGE: 62 Location: [facility] Re09/22/17 SEX: F Status: REG REF SPEC: [id number] LUZMA: 09/22/17- [facility] DR: Lb Manzo MD REQ: [id number] RECD: 09/22/17 STATUS: EMI DAE DR: Clarence Chau MD _ ORDERED: LEVEL 4 COMMENTS: [id number] FINAL DIAGNOSIS Temporal artery, left superficial, biopsy: [...] performed at Main Lab DEPARTMENT OF PATHOLOGY, [address] [place] [address] Parveen Maria M.D. Director [facility] # [id number] 34 Because ethnic data is not always readily [...] 15-29 5 Kidney failure <15 (or dialysis) 35 [id number] 36 [id number] 37 Acute inflammation: >10.00 38 [id number] 39 Acute inflammation: >10.00 40 Please note the change in INR reference range effective 17. Procedures Date Code Description Status 01/07/2019 46491 Anticoagulant MGMT For Patient Taking Warfarin, Inc Completed Review & Intr 12/30/2018 46945 Anticoagulant MGMT For Patient Taking Warfarin, Inc Completed Review & Intr 12/24/2018 96697 Anticoagulant MGMT For Patient Taking Warfarin, Inc Completed Review & Intr 12/17/2018 93785 Anticoagulant MGMT For Patient Taking Warfarin, Inc Completed Review & Intr 12/09/2018 09515 Anticoagulant MGMT For Patient Taking Warfarin, Inc Completed Review & Intr 12/07/2018 52158 Anticoagulant MGMT For Patient Taking Warfarin, Inc Completed Review & Intr 11/26/2018 29506 Anticoagulant MGMT For Patient Taking Warfarin, Inc Completed Review & Intr 11/19/2018 03309 Anticoagulant MGMT For Patient Taking Warfarin, Inc Completed Review & Intr 11/12/2018 35233 Anticoagulant MGMT For Patient Taking Warfarin, Inc Completed Review & Intr 11/06/2018 88161 Anticoagulant MGMT For Patient Taking Warfarin, Inc Completed Review & Intr 10/29/2018 31783 Anticoagulant MGMT For Patient Taking Warfarin, Inc Completed Review & Intr 10/21/2018 55983 Anticoagulant MGMT For Patient Taking Warfarin, Inc Completed Review & Intr 10/14/2018 63138 Anticoagulant MGMT For Patient Taking Warfarin, Inc Completed Review & Intr 10/07/2018 55455 Anticoagulant MGMT For Patient Taking Warfarin, Inc Completed Review & Intr 10/01/2018 63267 Anticoagulant MGMT For Patient Taking Warfarin, Inc Completed Review & Intr 09/23/2018 40445 Anticoagulant MGMT For Patient Taking Warfarin, Inc Completed Review & Intr 09/16/2018 82853 Anticoagulant MGMT For Patient Taking Warfarin, Inc Completed Review & Intr 09/09/2018 44965 Anticoagulant MGMT For Patient Taking Warfarin, Inc Completed Review & Intr 09/03/2018 51166 Anticoagulant MGMT For Patient Taking Warfarin, Inc Completed Review & Intr 08/27/2018 50692 Anticoagulant MGMT For Patient Taking Warfarin, Inc Completed Review & Intr 08/20/2018 90453 Anticoagulant MGMT For Patient Taking Warfarin, Inc Completed Review & Intr 08/12/2018 79587 Anticoagulant MGMT For Patient Taking Warfarin, Inc Completed Review & Intr 07/29/2018 30585 Anticoagulant MGMT For Patient Taking Warfarin, Inc Completed Review & Intr 07/22/2018 53961 Anticoagulant MGMT For Patient Taking Warfarin, Inc Completed Review & Intr 07/01/2018 04506 Anticoagulant MGMT For Patient Taking Warfarin, Inc Completed Review & Intr 06/25/2018 94792 Anticoagulant MGMT For Patient Taking Warfarin, Inc Completed Review & Intr 06/11/2018 05033 Anticoagulant MGMT For Patient Taking Warfarin, Inc Completed Review & Intr 06/03/2018 29525 Anticoagulant MGMT For Patient Taking Warfarin, Inc Completed Review & Intr 05/28/2018 95686 Anticoagulant MGMT For Patient Taking Warfarin, Inc Completed Review & Intr 05/20/2018 19166 Anticoagulant MGMT For Patient Taking Warfarin, Inc Completed Review & Intr 05/06/2018 51803 Anticoagulant MGMT For Patient Taking Warfarin, Inc Completed Review & Intr 04/22/2018 40929 Anticoagulant MGMT For Patient Taking Warfarin, Inc Completed Review & Intr 04/15/2018 88463 Anticoagulant MGMT For Patient Taking Warfarin, Inc Completed Review & Intr 04/08/2018 08830 Anticoagulant MGMT For Patient Taking Warfarin, Inc Completed Review & Intr 04/01/2018 27068 Anticoagulant MGMT For Patient Taking Warfarin, Inc Completed Review & Intr 03/25/2018 56823 Anticoagulant MGMT For Patient Taking Warfarin, Inc Completed Review & Intr 03/18/2018 61689 Anticoagulant MGMT For Patient Taking Warfarin, Inc Completed Review & Intr 03/12/2018 69647 Anticoagulant MGMT For Patient Taking Warfarin, Inc Completed Review & Intr 02/26/2018 97768 Anticoagulant MGMT For Patient Taking Warfarin, Inc Completed Review & Intr 06/11/2017 [id number] Mammogram Completed 08/11/2015 [id number] Colonoscopy Completed Encounters Type Date Location Provider Dx Diagnosis Office Visit 01/11/2019 Main Office Michelle Allen NP M54.2 Cervicalgia 1:45p Office Visit 12/28/2018 Main Office Michelle Allen NP Z00.00 Encntr for general 3:15p adult medical exam w/o abnormal findings R13.10 Dysphagia, unspecified Z23 Encounter for immunization Office Visit 10/12/2018 5:00p Main Office Clarence Z01.818 Encounter for other MD Lizz preprocedural examination E11.40 Type 2 diabetes mellitus with diabetic neuropathy, unsp I10 Essential (primary) hypertension Office Visit 10/05/2018 10:00a Main Office Michelle Allen, E11.40 Type 2 diabetes [employer] DOOR TECHNICIAN mellitus with diabetic neuropathy, unsp I48.0 Paroxysmal atrial fibrillation I10 Essential (primary) hypertension Office Visit 08/21/2018 3:15p [facility] Michelle Allen, R21 Rash and other OVERHEAD DOOR TECHNICIAN nonspecific skin eruption Office Visit 06/30/2018 9:00a Main Office Michelle Allen, E11.40 Type 2 diabetes OVERHEAD DOOR TECHNICIAN mellitus with diabetic neuropathy, unsp Office Visit 05/04/2018 3:15p Main Office Michelle Allen, N39.0 Urinary tract [employer] DO[employer] TECHNICIAN infection, site not specified Office Visit 03/23/2018 11:15a Main Office Jenna E11.40 Type 2 diabetes Shortle, OVERHEAD DOOR TECHNICIAN mellitus with diabetic neuropathy, unsp Office Visit 02/19/2018 2:30p Main Office Jenna E11.40 Type 2 diabetes Shortle, OVERHEAD DOOR TECHNICIAN mellitus with diabetic neuropathy, unsp Office Visit 12/22/2017 8:00a Main Office Jenna Z00.00 Encntr for Shortle, OVERHEAD DOOR TECHNICIAN general adult medical exam w/o abnormal findings E11.40 Type 2 diabetes mellitus with diabetic neuropathy, unsp Office Visit 11/25/2017 11:00a Main Office Jenna E11.40 Type 2 diabetes Shortle, OVERHEAD DOOR TECHNICIAN mellitus with diabetic neuropathy, unsp Office Visit 10/20/2017 9:30a Main Office Jenna E11.40 Type 2 diabetes Shortle, OVERHEAD DOOR TECHNICIAN mellitus with diabetic neuropathy, unsp Office Visit 08/25/2017 10:30a Main Office Jenna R51 Headache Shortle, OVERHEAD DOOR TECHNICIAN Office Visit 06/19/2017 2:30p Main Office Dayana Elaine, E11.40 Type 2 diabetes [employer] mellitus with diabetic neuropathy, unsp I10 Essential (primary) hypertension E78.00 Pure hypercholesterolemia, unspecified Z51.81 Encounter for therapeutic drug level monitoring Z23 Encounter for immunization
--- OUTSIDE RECORDS SUMMARY | 2019-01-18 18:12 | XMS REPORT | Continuity of Care Document ---
:1955 External Reference #:[id number] Author Name Michelle Allen NP Address [address] [place] [address] Care Team Providers Name Role Phone Michelle Allen NP Care Team Information Legal Activity Adjudicator Unavailable Payers Date Identification Numbers Payment Provider Subscriber Expires: 2018 Policy Number: [id number] Medicare - Bswny Umd Janny Rojas PayID: [id number] [address] [place] [address] Effective: 2017 Policy Number: [id number] Medicaid After Medicare Janny Rojas Expires: 2017 Group Name: 2 1 [address] PayID: [id number] [place] [address] Effective: 2018 Policy Number: [id number] [facility] Medicare Janny Rojas Group Number: [id number] [address] Group Name: [place] [address] PayID: [id number] Problems Active Problems Provider Date Type 2 [...] for 2 Unknown yrs Smoking Status Reviewed: 01/14/19 Former Cigarette Smoker 1/2 pack a day for 2 yrs ETOH Use Occasionally consumes alcohol Tobacco Use Start: Unknown End: Patient is a former smoker Unknown Allergies, Adverse Reactions, Alerts Active Allergies Reaction Severity Comments Date Strawberries 06/19/2017 Amoxicillin 06/19/2017 Glipizide 06/19/2017 Contrast Dye 06/19/2017 Codeine 06/19/2017 Latex 12/28/2018 Medications Active Medications SIG Qnty Indications Ordering Date Provider Cephalexin 1 capsule by 14caps Michelle Allen, 01/14/2019 500mg mouth twice CASING FLUSHER Capsules daily x 7 days Cervical use as directed 1units Michelle Allen, 01/12/2019 Collar/Hard/Adjustabl CASING FLUSHER e/One Size Fits ALL Misc Nateglinide take one tablet 90tabs E11.40 Michelle Allen, 03/23/2018 60mg by mouth three CASING FLUSHER Tablets times a day with meals Irbesartan take one tablet 30tabs Clarence 03/02/2018 150mg by mouth every MD Lizz Tablets day for blood pressure Fish Oil as directed Dayana Elaine, 06/19/2017 1000mg GREENS TIER-C Capsules Vitamin C 2 po qd Dayana Elaine, 06/19/2017 500mg GRE[place] TIER-C Capsules Nitroglycerin Place One Tablet Unknown 0.4mg Under The Tongue Tablets Sub Every 5 Minutes For Up To 3 Doses as Needed Forchest Pain. If Chest Pain Still Persists Contact 911 Warfarin Sodium Take 1 Tablet By 30tabs [facility] 5mg Mouth 4 Times A Shortle, CASING FLUSHER Tablets Week And 1/2 Tablet 3 Times A Week as Directed Oxycodone-Acetaminoph Take One Tablet Unknown en By Mouth Twice A 5-325mg Tablets Day as Needed For Pain Maximum Daily Onetouch Ultra Blue use to test two 100units E11.40 Jenna times a day (dx: YUNG Berry Strips e11.40) Gabapentin take two 450caps Michelle Allen, 300mg capsules by CASING FLUSHER Capsules mouth every morning and take three capsules by mouth every evening Warfarin Sodium 5mg 4 days per 90tabs Michelle Allen, 5mg week and 2.5mg 3 CASING FLUSHER Tablets days per week or as directed Omeprazole 1 po qd Unknown 40mg Capsules DR Metformin HCL Take 1 Tablet By 60tabs Clarence 1000mg Mouth Two Times MD Lizz Tablets Daily Citalopram 1 by mouth every 30tabs Michelle Allen, Hydrobromide day CASING FLUSHER 20mg Tablets Baclofen Take 1 Tablet By 30tabs Clarence 20mg Tablets Mouth Every Day MD Lizz Simvastatin 1 tab by mouth 30tabs Michelle Allen, 40mg every at bedtime CASING FLUSHER Tablets History Medications Tramadol HCL Take 1 tablet by 30tabs Michelle Allen, CASING FLUSHER 01/11/2019 - 50mg Tablets mouth every 6 01/14/2019 hours as needed for pain Nitrofurantoin Monohyd Take 1 capsule by 14caps Michelle Allen, CASING FLUSHER 2017 - Macro mouth every 12 08/21/2018 100mg Capsules hours for 7 days with food for urinary tract infection Repaglinide Take One Tablet By 90tabs Jenna Berry, 02/03/2018 - 0.5mg Tablets Mouth Three Times CASING FLUSHER 02/05/2018 A Day 15 To 30 Minutes Before Meals For Type 2 Diabetes Melatonin [facility] Kristi, 12/29/2017 - 1mg Capsules CASING FLUSHER 12/29/2017 Repaglinide Take One Tablet By 90tabs Jenna Berry, 11/28/2017 - 0.5mg Tablets Mouth Three Times CASING FLUSHER 11/28/2017 A Day 15 To 30 Minutes Before Meals For Type 2 Diabetes Januvia take one tablet by 30tabs Michelle Allen, CASING FLUSHER 11/28/2017 - 100mg Tablets mouth every day 12/28/2018 for type 2 diabetes Repaglinide Take 1 tablet by 90tabs Jenna Berry, 10/31/2017 - 0.5mg Tablets mouth 3 times per CASING FLUSHER 11/25/2017 day 15 to 30 minutes before meals for Type 2 diabetes Prednisone 2 tabs by mouth 28tabs Jenna Berry, 08/25/2017 - 20mg Tablets daily (in the CASING FLUSHER 10/20/2017 morning) Nateglinide 1 tab po tid 90tabs Unknown - 60mg Tablets 02/19/2018 Tradjenta Take 1 Tablet By Unknown - 5mg Tablets Mouth Every Day 11/25/2017 Valsartan take one tablet by 30tabs Clarence Zamudio, - 80mg Tablets mouth every day 03/02/2018 Pressure Two Eye one capsule by Unknown - Vitamin mouth twice a day 01/14/2019 Immunizations CPT Code Status Date Vaccine Lot # [id number] Given 12/28/2018 Pneumovax 23 (PPSV23) 65+ years or high risk 2 to [id number] 66 year old 49638 Given 12/28/2018 Tdap (Adacel) [id number] 28819 Given 04/11/2018 Influenza Virus Vaccine, Quadrivalent, 3 Yr > Quad, Preserv Free 78180 Given 06/19/2017 Prevnar-13 Pneumococcal Conjugate Vaccine [id number] Given 05/28/2017 Influenza Virus Vaccine, Quadrivalent, 3 Yr > Quad, Preserv Free Vital Signs Date Vital Result Comment 01/14/2019 10:04am Weight 187.00 lb Weight 84.823 kg BP Systolic 110 mmHg BP Diastolic 70 mmHg Heart Rate 71 /min Body Temperature 97.5 F Respiratory Rate 16 /min O2 % BldC Oximetry 95 % 01/11/2019 1:38pm Weight 188.00 lb Weight 85.277 [...] Facility Test Result H/L Range Note Laboratory 01/13/20 [facility] Lyme Screen W/ Negative Negative test finding 06 [phone] Reflex To WB Tick-Borne 01/13/20 [facility] Anaplasma <1:64 titer <1:64 1 Disease AB 77 [phone] phagocytophilium Panel Babesiosis Evaluation <1:64 titer <1:64 2 Ehrlichia chaffeensis IgG AB <1:64 titer <1:64 3 Lyme Disease Serology Negative Negative 4 Urine Microalbumin 01/11/2019 [facility] Ur Microalbumin 16.3 mg/L 5 Random [phone] (mg/L) Urine Creatinine 85.98 mg/dL Urine Microalbumin/Creatinine 18.9 N <31 CBC Auto Diff 01/10/2019 [facility] White Blood 6.1 10^3/uL N 3.5-10.8 [phone] Count Red Blood Count 3.94 10^6/uL N [...] Red Blood Cells % 0.1 Inr/Protime 01/10/2019 [facility] Inr 2.33 High 0.82-1.09 6 [phone] Laboratory test 01/10/2019 [facility] Partial 52.3 High 26.0-38.0 finding [phone] Thrombo seconds Time PTT Comp Metabolic 01/10/2019 [facility] Sodium 136 mmol/ L N 135-145 Panel [phone] Potassium 4.6 mmol/L N 3.5-5.0 Chloride 100 [...] Egfr Non- 79.8 >60 Egfr 96.5 >60 7 Laboratory 01/10/2019 [facility] C Reactive 11.62 High <8.01 test finding [phone] Protein mg/L Laboratory 01/06/2019 Other International 1.8 test finding Normalized Ratio Laboratory 12/30/2018 Other International 3.2 test finding Normalized Ratio Laboratory 12/30/2018 Other International 3.1 test finding Normalized Ratio CBC Auto Diff 12/28/2018 [facility] White Blood Count 7.1 N 3.5-10.8 8 [phone] 10^3/uL Red Blood Count 4.13 10^6/uL N [...] % Nucleated Red Blood Cells % 0.1 Comp Metabolic Panel 12/28/2018 [facility] Sodium 139 mmol/L N 135-145 [phone] Potassium 4.0 mmol/L N 3.5-5.0 Chloride 100 [...] Non- 72.9 >60 Egfr 88.2 >60 9 Lipid Profile 12/28/2018 [facility] Triglycerides 348 mg/dL 10 (Trig/Chol/HDL) [phone] Cholesterol 180 mg/dL 11 HDL Cholesterol 55.2 mg/dL 12 LDL Cholesterol 55 mg/dL 13 Laboratory test 12/28/2018 [facility] Hemoglobin A1c 7.9 % High 4.0-5.6 14 finding [phone] Laboratory test 12/23/2018 Other International 2.1 finding Normalized Ratio Laboratory test 12/18/2018 [facility] Vitamin B12 544 N 180-914 15 finding [phone] pg/mL Laboratory test 12/17/2018 Other International 1.9 finding [...] finding Normalized Ratio CBC Auto Diff 09/28/2018 [facility] White Blood Count 7.4 N 3.5-10.8 [phone] 10^3/uL Red Blood Count 3.95 10^6/uL Low 4.00-5.40 [...] % Nucleated Red Blood Cells % 0.1 Comp Metabolic Panel 09/28/2018 [facility] Sodium 139 mmol/L N 135-145 [phone] Potassium 3.9 mmol/L N 3.5-5.0 Chloride 103 [...] Egfr Non- 86.5 >60 Egfr 104.7 >60 16 Laboratory 09/28/2018 [facility] Hemoglobin A1c 7.1 % High 4.0-5.6 17 test finding [phone] (Glyco HGB) Laboratory 09/23/2018 Other International 1.9 test finding Normalized Ratio Laboratory 09/16/2018 Other International 2.6 test finding Normalized Ratio Laboratory 09/09/2018 Other International 1.7 test finding Normalized Ratio Laboratory 09/02/2018 Other International 1.7 test finding Normalized Ratio Laboratory 08/27/2018 Other International 1.4 test finding Normalized Ratio Laboratory 08/21/2018 [facility] Cytology Non-Oil Spot Washer SEE 18 test finding [phone] RESULT BELOW Laboratory 08/20/2018 Other International 2.9 [...] finding Normalized Ratio CBC Auto Diff 06/17/2018 [facility] White Blood 5.9 N 3.5-10.8 [phone] Count 10^3/uL Red Blood Count 3.87 10^6/uL Low [...] Cells % 0.1 Comp Metabolic Panel 06/17/2018 [facility] Sodium 137 mmol/L N 135-145 [phone] Potassium 4.7 mmol/L N 3.5-5.0 Chloride 101 [...] Egfr Non- 79.8 >60 Egfr 96.5 >60 19 Laboratory test 06/17/2018 [facility] Hemoglobin A1c 7.8 % High 4.0-5.6 20 finding [phone] (Glyco HGB) Laboratory test 06/11/2018 Other International 2.4 finding Normalized Ratio Laboratory test 06/03/2018 Other International 1.9 finding Normalized Ratio Laboratory test 05/28/2018 Other International 2.0 finding Normalized Ratio Laboratory test 05/20/2018 Other International 2.2 finding Normalized Ratio Laboratory test 05/13/2018 Other International 1.9 finding Normalized Ratio Laboratory test 05/06/2018 Other International 1.8 finding Normalized Ratio Urine Culture 05/04/2018 [facility] Urine Culture SEE 21 And [phone] RESULT Sensitivities BELOW Urine DIP 05/04/2018 [facility] House Lab Leukocytes ++ Neg ([phone] - Urine Nitrites neg Neg Urobilinogen norm Norm Total Protein, Urine + Neg Urine pH 5 5-6 Urine Blood 250 High Neg Specific [place] 1.030 High 1.01-1.02 Urine Ketones neg Neg [...] finding Normalized Ratio Urine Culture And 02/19/2018 [facility] Urine Culture SEE RESULT 22 Sensitivities [phone] BELOW Urine DIP 02/19/2018 In House Lab Leukocytes ++ Neg ([phone])- - Urine Nitrites neg Neg Urobilinogen norm Norm Total Protein, Urine tr Neg Urine pH 5 5-6 Urine Blood neg Neg Specific [place] 1.020 1.01-1.02 Urine Ketones neg Neg Urine Bilirubin neg Neg Urine Glucose norm Norm Laboratory test 02/12/2018 Other International 2.1 finding Normalized Ratio CBC Auto Diff 02/10/2018 [facility] White Blood Count 7.7 N 3.5-10 [phone] 10^3/uL .8 Red Blood Count 3.95 10^6/uL [...] Cells % 0.1 Comp Metabolic Panel 02/10/2018 [facility] Sodium 141 mmol/L N 135-145 [phone] Potassium 4.4 mmol/L N 3.5-5.0 Chloride 103 [...] Egfr Non- 74.2 >60 Egfr 89.8 >60 23 Laboratory test 02/10/2018 [facility] Hemoglobin A1c 7.0 % High 4.0-5.6 24 finding [phone] Laboratory test 02/04/2018 Other International 2.3 finding Normalized Ratio Laboratory test 01/29/2018 Other International 3.1 finding Normalized Ratio Laboratory test 01/21/2018 Other International 2.9 finding Normalized Ratio Laboratory test 01/14/2018 Other International 2.8 finding Normalized Ratio Laboratory test 01/07/2018 Other International 1.9 finding Normalized Ratio Laboratory test 01/01/2018 Other International 2.0 finding Normalized Ratio Laboratory test 12/24/2017 Other International 2.8 finding Normalized Ratio CBC Auto Diff 12/23/2017 [facility] White Blood Count 8.7 N 3.5-10.8 [phone] 10^3/uL Red Blood Count 4.06 10^6/uL N 4.0-5.4 [...] Nucleated Red Blood Cells % 0.1 Laboratory 12/23/2017 [facility] Hepatitis C Nonreactive Nonreactive 25 test finding [phone] Antibody Hemoglobin A1c (Glyco HGB) 6.9 % High 4.0-5.6 26 Liver Function 12/23/2017 [facility] Direct 0.10 mg/ dL N 0.03-0.18 Panel [phone] Bilirubin Indirect Bilirubin 0.2 mg/dL Low 0.3-1.0 Lipid Profile 12/23/2017 [facility] Triglycerides 248 mg/dL 27 (Trig/Chol/HDL) [phone] Cholesterol 137 mg/dL 28 HDL Cholesterol 48.4 mg/dL 29 LDL Cholesterol 39 mg/dL 30 Comp Metabolic 12/23/2017 [facility] Sodium 138 mmol/ L Low 139-145 Panel [phone] Potassium 4.2 mmol/L N 3.5-5.0 Chloride 102 [...] Egfr Non- 93.0 >60 Egfr 119.6 >60 31 Laboratory test 12/22/2017 [facility] Cytology SEE RESULT 32 finding [phone] BELOW Urine Microalbumin 12/22/2017 [facility] Ur Microalbumin 21.1 mg/L Random [phone] (mg/L) Urine Creatinine 219.54 mg/dL Urine Microalbumin/Creatinine 9.6 ug/mg N <31 Laboratory test 12/17/2017 Other International 2.3 finding [...] finding Normalized Ratio CBC Auto Diff 10/20/2017 [facility] White Blood Count 8.6 N 3.5-10 33 [phone] 10^3/uL .8 Red Blood Count 4.15 10^6/uL N 4.0-5.4 [...] Cells % 0.1 Comp Metabolic Panel 10/20/2017 [facility] Sodium 140 mmol/L N 133-145 [phone] Potassium 4.2 mmol/L N 3.5-5.0 Chloride 103 [...] Egfr Non- 69.2 >60 Egfr 88.9 >60 34 Laboratory 10/20/2017 [facility] Hemoglobin A1c 8.2 % High 4.0-5.6 35 test finding [phone] Laboratory 10/15/2017 Other International 1.9 test finding Normalized Ratio Laboratory 10/09/2017 Other International 2.5 test finding Normalized Ratio Inr/Protime 10/02/2017 [facility] Inr 3.46 High 0.77-1.02 36 [phone] Laboratory 09/24/2017 Other International 1.4 test finding Normalized Ratio Laboratory 09/22/2017 [facility] Surgical SEE 37 , test finding [phone] Interface Order RESULT 38 BELOW Inr/Protime 09/09/2017 [facility] Inr 1.67 High 0.77-1.02 [phone] Inr/Protime 09/02/2017 [facility] Inr 3.21 High 0.77-1.02 [phone] Laboratory 08/25/2017 [facility] Erythrocyte Sed 37 mm/Hr High 0-30 39 test finding [phone] Rate Vitamin D Total 25(Oh) 22.5 ng/mL N 20-50 40 C Reactive Protein 8.66 mg/L High < 5.00 41 Comp Metabolic Panel 08/25/2017 [facility] Sodium 138 mmol/L N 133-145 [phone] Potassium 4.4 mmol/L N 3.5-5.0 Chloride 102 [...] Egfr Non- 84.0 >60 Egfr 108.0 >60 42 CBC Auto Diff 08/25/2017 [facility] White Blood 7.3 10^3/uL N 3.5-10.8 [phone] Count Red Blood Count 4.02 10^6/uL N 4.0-5.4 [...] 0-2 Nucleated Red Blood Cells % 0.1 Inr/Protime 08/25/2017 [facility] Inr 2.53 High 0.77-1.02 [phone] Inr/Protime 08/19/2017 [facility] Inr 1.83 High 0.77-1.02 [phone] Inr/Protime 08/12/2017 [facility] Inr 2.79 High 0.77-1.02 43 [phone] Laboratory test 08/01/2017 [facility] C Reactive 16.10 High < 5.00 44 finding [phone] Protein mg/L Erythrocyte Sed Rate 41 mm/Hr High 0-30 Inr/Protime 07/31/2017 [facility] Inr 1.89 High 0.77-1.02 45 [phone] Inr/Protime 07/10/2017 [facility] Inr 2.22 High 0.89-1.11 [phone] Inr/Protime 06/26/2017 [facility] Inr 2.70 High 0.89-1.11 [phone] Inr/Protime 06/19/2017 [facility] Inr 1.91 High 0.89-1.11 [phone] 1 ADDITIONAL INFORMATION This test was developed using an analyte specific reagent. Its performance characteristics were determined by [facility] in a manner consistent with CLIA requirements. This test has not been cleared or approved by the U.S. Food and Drug Administration. 2 ADDITIONAL INFORMATION This test was developed using an analyte specific reagent. Its performance characteristics were determined by [facility] in a manner consistent with CLIA requirements. This test has not been cleared or approved by the U.S. Food and Drug Administration. 3 ADDITIONAL INFORMATION This test was developed using an analyte specific reagent. Its performance characteristics were determined by [facility] in a manner consistent with CLIA requirements. This test has not been cleared or approved by the U.S. Food and Drug Administration. 4 No evidence of antibodies to B. burgdorferi detected. False negative results may occur in recently infected patients (<=2 weeks) due to low or undetectable antibody levels to B. burgdorferi. If recent exposure is suspected, a second sample should be collected and tested in 2-4 weeks. Test Performed by: [facility] [address] [place] [address] 5 [id number] 6 Standard intensity warfarin therapeutic range: 2.0-3.0 High intensity warfarin therapeutic range: 2.5-3.5 7 Because ethnic data is not always readily [...] 15-29 5 Kidney failure <15 (or dialysis) 8 [id number] 9 Because ethnic data is not always [...] 5 Kidney failure <15 (or dialysis) 10 Desirable: <150 Borderline High: 150-199 High: 200-499 Very High: >500 11 Desirable: <200 Borderline High: 200-239 High: >239 12 Low: <40 Desirable: 40-60 High: >60 13 Desirable: <100 Near Optimal: 100-129 Borderline High: 130-159 High: 160-189 Very High: >189 14 Therapeutic target for the treatment of diabetes mellitus patients is <7% HBA1C, and in selective patients <6.0%. Please refer to [place] [employer] diabetic care guidelines for further information. 15 Normal Range 180 to 914 Indeterminate Range 145 to 180 Deficient Range <145 16 Because ethnic data is not always readily [...] 15-29 5 Kidney failure <15 (or dialysis) 17 Therapeutic target for the treatment of diabetes mellitus patients is <7% HBA1C, and in selective patients <6.0%. Please refer to [place] [employer] diabetic care guidelines for further information. 18 SEE RESULT BELOW Name: JANNY ROJAS : [address]: Michelle Allen NP Acct: [id number] Unit: [id number] AGE: 63 Location: [facility] Re08/21/18 SEX: F Status: REG REF SPEC: [id number] LUZMA: 08/21/18 [facility] DR: Michelle Allen CASING FLUSHER REQ: [id number] RECD: 08/21/18 STATUS: SOUT _ ORDERED: NG THIN LAYER COMMENTS: [id number] FINAL DIAGNOSIS Vulva scraping: -- Benign squamous epithelium with acute inflammation. Vulva cytologic material CLINICAL HISTORY Vulva GROSS DESCRIPTION Received in Thin Prep vial. Signed by and Reported on: Parveen Maria MD 1657 END OF REPORT DEPARTMENT OF PATHOLOGY, [address] [place] [address] Parveen Maria M.D. Director [facility] # [id number] 19 Because ethnic data is not always readily [...] 15-29 5 Kidney failure <15 (or dialysis) 20 Therapeutic target for the treatment of diabetes mellitus patients is <7% HBA1C, and in selective patients <6.0%. Please refer to [place] [employer] diabetic care guidelines for further information. 21 SEE RESULT BELOW Name: JANNY ROJAS [place] : [address]: Michelle Allen NP Acct: [id number] Unit: [id number] AGE: 62 Location: [facility] Re05/04/18 SEX: F Status: REG REF SPEC: [id number] LUZMA: 05/04/18-1453 [facility] DR: Michelle Allen NP REQ: [id number] RECD: 05/04/18 STATUS: COMP _ SOURCE: URINE SPDESC: ORDERED: Urine Culture COMMENTS: [id number] Urine Source: Random Procedure Result Reported Site Urine Culture Final 05/05/18- 1628 ML Few Enterobacteriacae; possible contamination. * ML - Main Lab . END OF REPORT DEPARTMENT OF PATHOLOGY, [address] [place] [address] Parveen Maria M.D. Director [facility] # [id number] 22 SEE RESULT BELOW Name: JANNY ROJAS : [address]: Jenna Berry NP Acct: [id number] Unit: [id number] AGE: 62 Location: [facility] Re02/19/18 SEX: F Status: REG REF SPEC: [id number] LUZMA: 02/19/18-[address]: Jenna Berry NP REQ: [id number] RECD: 02/19/18 STATUS: COMP _ SOURCE: URINE SPDESC: ORDERED: Urine Culture COMMENTS: [id number] Procedure Result Reported Site Urine Culture Final 02/21/18- 1242 ML No growth of clinically significant organisms * ML - Main Lab . END OF REPORT DEPARTMENT OF PATHOLOGY, [address] [place] [address] Parveen Maria M.D. Director [facility] # [id number] 23 Because ethnic data is not always readily [...] 15-29 5 Kidney failure <15 (or dialysis) 24 Therapeutic target for the treatment of diabetes mellitus patients is <7% HBA1C, and in selective patients <6.0%. Please refer to [place] [employer] diabetic care guidelines for further information. 25 FASTING 26 Therapeutic target for the treatment of diabetes mellitus patients is <7% HBA1C, and in selective patients <6.0%. Please refer to [place] [employer] diabetic care guidelines for further information. 27 Desirable: <150 Borderline High: 150-199 High: 200-499 Very High: >500 28 Desirable: <200 Borderline High: 200-239 High: >239 29 Low: <40 Desirable: 40-60 High: >60 30 Desirable: <100 Near Optimal: 100-129 Borderline High: 130-159 High: 160-189 Very High: >189 31 Because ethnic data is not always readily [...] 15-29 5 Kidney failure <15 (or dialysis) 32 SEE RESULT BELOW Name: ROGERSJANNY : [address]: Jenna Berry NP Acct: [id number] Unit: [id number] AGE: 62 Location: [facility] Re12/22/17 SEX: F Status: REG REF SPEC: [id number] LUZMA: 12/22/170916 SUBM DR: Jenna Berry NP REQ: [id number] RECD: 12/22/17751 STATUS: SOUT _ ORDERED: TP IMAGE ANALYS, HPV/Thin Prep COMMENTS: [id number] Negative for Intraepithelial lesion or Malignancy A. [...] was evaluated with the assistance of the [employer] Tree FarmsPrep Test Imaging System. Due to cytologic findings at the windows security analyst microscope, comprehensive manual rescreening by a Deicer Element Winder Machine may be required. The Pap Smear is [...] years. END OF REPORT DEPARTMENT OF PATHOLOGY, [address] [place] [address] Parveen Maria M.D. Director [facility] # [id number] 33 [id number] 34 Because ethnic data is not always [...] 5 Kidney failure <15 (or dialysis) 35 Therapeutic target for the treatment of diabetes mellitus patients is <7% HBA1C, and in selective patients <6.0%. Please refer to [place] [employer] diabetic care guidelines for further information. 36 [id number] 37 [id number] 38 SEE RESULT BELOW Name: JANNY ROJAS : [address]: Lb Manzo MD Acct: [id number] Unit: [id number] AGE: 62 Location: [facility] Re09/22/17 SEX: F Status: REG REF SPEC: [id number] LUZMA: 09/22/17- SUBM DR: Lb Manzo MD REQ: [id number] RECD: 09/22/17 STATUS: EMI PEARL DR: Clarence Chau MD _ ORDERED: LEVEL 4 COMMENTS: [id number] FINAL DIAGNOSIS Temporal artery, left superficial, biopsy: [...] in one cassette Signed (signature on file) iYng Carpenter MD 0927 END OF REPORT * ML=Testing performed at Main Lab DEPARTMENT OF PATHOLOGY, [address] [place] [address] Parveen Maria M.D. Director [facility] # [id number] 39 [id number] 40 [id number] 41 Acute inflammation: >10.00 42 Because ethnic data is not always readily [...] 15-29 5 Kidney failure <15 (or dialysis) 43 [id number] 44 Acute inflammation: >10.00 45 Please note the change in INR reference range effective 17. Procedures Date Code Description Status 01/07/2019 56394 Anticoagulant MGMT For Patient Taking Warfarin, Inc Completed Review & Intr 12/30/2018 94753 Anticoagulant MGMT For Patient Taking Warfarin, Inc Completed Review & Intr 12/24/2018 05230 Anticoagulant MGMT For Patient Taking Warfarin, Inc Completed Review & Intr 12/17/2018 72170 Anticoagulant MGMT For Patient Taking Warfarin, Inc Completed Review & Intr 12/09/2018 23706 Anticoagulant MGMT For Patient Taking Warfarin, Inc Completed Review & Intr 12/07/2018 64162 Anticoagulant MGMT For Patient Taking Warfarin, Inc Completed Review & Intr 11/26/2018 73180 Anticoagulant MGMT For Patient Taking Warfarin, Inc Completed Review & Intr 11/19/2018 74605 Anticoagulant MGMT For Patient Taking Warfarin, Inc Completed Review & Intr 11/12/2018 85535 Anticoagulant MGMT For Patient Taking Warfarin, Inc Completed Review & Intr 11/06/2018 16065 Anticoagulant MGMT For Patient Taking Warfarin, Inc Completed Review & Intr 10/29/2018 22941 Anticoagulant MGMT For Patient Taking Warfarin, Inc Completed Review & Intr 10/21/2018 64184 Anticoagulant MGMT For Patient Taking Warfarin, Inc Completed Review & Intr 10/14/2018 44438 Anticoagulant MGMT For Patient Taking Warfarin, Inc Completed Review & Intr 10/07/2018 63812 Anticoagulant MGMT For Patient Taking Warfarin, Inc Completed Review & Intr 10/01/2018 78992 Anticoagulant MGMT For Patient Taking Warfarin, Inc Completed Review & Intr 09/23/2018 70315 Anticoagulant MGMT For Patient Taking Warfarin, Inc Completed Review & Intr 09/16/2018 74420 Anticoagulant MGMT For Patient Taking Warfarin, Inc Completed Review & Intr 09/09/2018 39658 Anticoagulant MGMT For Patient Taking Warfarin, Inc Completed Review & Intr 09/03/2018 91315 Anticoagulant MGMT For Patient Taking Warfarin, Inc Completed Review & Intr 08/27/2018 38429 Anticoagulant MGMT For Patient Taking Warfarin, Inc Completed Review & Intr 08/20/2018 70292 Anticoagulant MGMT For Patient Taking Warfarin, Inc Completed Review & Intr 08/12/2018 95403 Anticoagulant MGMT For Patient Taking Warfarin, Inc Completed Review & Intr 07/29/2018 73311 Anticoagulant MGMT For Patient Taking Warfarin, Inc Completed Review & Intr 07/22/2018 94402 Anticoagulant MGMT For Patient Taking Warfarin, Inc Completed Review & Intr 07/01/2018 40166 Anticoagulant MGMT For Patient Taking Warfarin, Inc Completed Review & Intr 06/25/2018 39294 Anticoagulant MGMT For Patient Taking Warfarin, Inc Completed Review & Intr 06/11/2018 42876 Anticoagulant MGMT For Patient Taking Warfarin, Inc Completed Review & Intr 06/03/2018 69039 Anticoagulant MGMT For Patient Taking Warfarin, Inc Completed Review & Intr 05/28/2018 55550 Anticoagulant MGMT For Patient Taking Warfarin, Inc Completed Review & Intr 05/20/2018 68459 Anticoagulant MGMT For Patient Taking Warfarin, Inc Completed Review & Intr 05/06/2018 22978 Anticoagulant MGMT For Patient Taking Warfarin, Inc Completed Review & Intr 04/22/2018 56056 Anticoagulant MGMT For Patient Taking Warfarin, Inc Completed Review & Intr 04/15/2018 77509 Anticoagulant MGMT For Patient Taking Warfarin, Inc Completed Review & Intr 04/08/2018 82286 Anticoagulant MGMT For Patient Taking Warfarin, Inc Completed Review & Intr 04/01/2018 28026 Anticoagulant MGMT For Patient Taking Warfarin, Inc Completed Review & Intr 03/25/2018 52940 Anticoagulant MGMT For Patient Taking Warfarin, Inc Completed Review & Intr 03/18/2018 38958 Anticoagulant MGMT For Patient Taking Warfarin, Inc Completed Review & Intr 03/12/2018 02799 Anticoagulant MGMT For Patient Taking Warfarin, Inc Completed Review & Intr 02/26/2018 80764 Anticoagulant MGMT For Patient Taking Warfarin, Inc Completed Review & Intr 06/11/2017 [id number] Mammogram Completed 08/11/2015 [id number] Colonoscopy Completed Encounters Type Date Location Provider [...] Office Michelle Allen, E11.40 Type 2 diabetes [place] mellitus with diabetic neuropathy, unsp I48.0 Paroxysmal atrial fibrillation I10 Essential (primary) hypertension Office Visit 08/21/2018 3:15p [facility] Michelle Allen, R21 Rash and other [place] nonspecific skin eruption Office Visit 06/30/2018 9:00a Main Office Michelle Allen E11.40 Type 2 diabetes [place] mellitus with diabetic neuropathy, unsp Office Visit 05/04/2018 3:15p Main Office Michelle Allen, N39.0 Urinary tract [place] infection, site not specified Office Visit 03/23/2018 11:15a Main Office Jenna E11.40 Type 2 diabetes Shortle, [place] mellitus with diabetic neuropathy, unsp Office Visit 02/19/2018 2:30p Main Office Jenna E11.40 Type 2 diabetes Shortle, [place] mellitus with diabetic neuropathy, unsp Office Visit 12/22/2017 8:00a Main Office Jenna Z00.00 Encntr for Shortle, [place] general adult medical exam w/o abnormal findings E11.40 Type 2 diabetes mellitus with diabetic neuropathy, unsp Office Visit 11/25/2017 11:00a Main Office Jenna E11.40 Type 2 diabetes Shortle, [place] mellitus with diabetic neuropathy, unsp Office Visit 10/20/2017 9:30a Main Office Jenna E11.40 Type 2 diabetes Kristi, YUNG mellitus with diabetic neuropathy, unsp Office Visit 08/25/2017 10:30a Main Office Jenna R51 Headache Kristi, [place] Office Visit 06/19/2017 2:30p Main Office Dayana Elaine, E11.40 Type 2 diabetes [place] [facility] mellitus with diabetic neuropathy, unsp I10 Essential (primary) hypertension E78.00 Pure hypercholesterolemia, unspecified Z51.81 Encounter for therapeutic drug level monitoring Z23 Encounter for immunization
[2019-01-18 18:16] VITALS: BP 108/52
--- NOTE | 2019-01-18 18:17 | UC ---
Ear Complaint HPI - HPI Summary HPI Summary: 63 yo female presents with LEFT ear/head pain. She tells me that about 2-2.5 weeks ago she started noticing some sensitive skin to her left ear and behind her left ear. She saw her PCP and was placed on ear drops for a potential ear infection with no relief. She then developed a red wound to her left ear about a week ago and was placed on po anbx by her PCP. Since that time the area has been draining clear fluid and the pain has spread to her left scalp. She denies changes in hearing, fever, chills, dizziness. - History of Current Complaint Chief Complaint: UCEar Stated Complaint: LEFT EAR PAIN Time Seen by Provider: 01/18/19 18:16 Hx Obtained From: Patient Onset/Duration: Gradual Onset Severity Initially: Moderate Severity Currently: Severe Pain Intensity: 8 Pain Scale Used: 0-10 Numeric - Allergies/Home Medications Allergies/Adverse Reactions: Allergies Allergy/AdvReac Type Severity Reaction Status Date / Time Adhesive Tape Allergy KOENIG Verified 01/18/19 18:16 latex Allergy welts/ Verified 01/18/19 18:16 hives strawberry Allergy anaphylaxis Verified 01/18/19 18:16 codeine AdvReac n/v Verified 01/18/19 18:16 contrast dye Allergy anaphylactic Uncoded 01/18/19 18:16 shock aspertame AdvReac Headache Uncoded 01/18/19 18:16 Home Medications: Home Medications cephALEXin [Keflex] 500 mg PO BID 01/18/19 [History Confirmed 01/18/19] traMADol TAB* [Ultram*] 50 mg PO Q6HR PRN 01/18/19 [History Confirmed 01/18/19] PMH/Surg Hx/FS Hx/Imm Hx Endocrine History: Diabetes, Dyslipidemia Cardiovascular History: Hypertension Other History Of: Anticoagulant Therapy - Surgical History Surgical History: Yes Surgery Procedure, Year, and Place: breast reduction 1989/[facility];. cholecystectomy 1990/;. carpal tunnel release [facility];. bones (2) removed from left wrist ([facility]),. arthroscopic surgery left knee;. Right Hip Replaced in December 2016 at [facility]. LEFT HIP REPLACEMENT 2019. bilateral cateracts - Family History Known Family History: Positive: Cardiac Disease, Other - FMHX OF STROKE ENDORSED Negative: Blood Disorder - NO FMHX OF BLOOD CLOTS - Social History Lives: With Family Alcohol Use: Occasionally Alcohol Amount: 1-2 glasses of wine per week Substance Use Type: None Smoking Status (MU): Former Smoker Type: Cigarettes Amount Used/How Often: at age 22 Have You Smoked in the Last Year: No When Did the Patient Quit Smoking/Using Tobacco: 35 years ago - Immunization History Most Recent Tetanus Shot: within last 10 years Review of Systems All Other Systems Reviewed And Are Negative: Yes Constitutional: Positive: Negative Skin: Positive: Rash - left ear Eyes: Positive: Negative ENT: Positive: Ear Ache Respiratory: Positive: Negative Cardiovascular: Positive: Negative Gastrointestinal: Positive: Negative Neurovascular: Positive: Negative Musculoskeletal: Positive: Negative Neurological: Positive: Headache Psychological: Positive: Negative Physical Exam - Summary Physical Exam Summary: GENERAL: NAD. WDWN. No pain distress. SKIN: Left ear crusted lesion. Left mu-ism with 2mm mildly erythematous lesion. HEENT: Head: AT/NC. Tender to light touch on left ear, left temporal scalp , and posterior left ear. Eyes: EOM intact. Conjunctiva clear without inflammation or discharge. Ears: Hearing grossly normal. TMs intact, no bulging, erythema, or edema. LEFT EAR: Antihelix with 4mm crusted lesion with erythematous base. TTP. Nose: Nasal mucosa pink and moist. NTTP maxillary and frontal sinus. Throat: Posterior oropharynx without exudates, erythema, or tonsillar enlargement. Uvula midline. NECK: Supple. Nontender. No lymphadenopathy. CHEST: No accessory muscle use. Breathing comfortably and in no distress. CV: Pulses intact. Cap refill <2seconds NEURO: Alert. PSYCH: Age appropriate behavior. Triage Information Reviewed: Yes Vital Signs: Initial Vital Signs Temp 98 F 01/18/19 18:10 Pulse 57 01/18/19 18:10 Resp 16 01/18/19 18:10 BP 108/52 01/18/19 18:10 Pulse Ox 100 01/18/19 18:10 Vital Signs Reviewed: Yes Ear Complaint Course/Dx - Course Course Of Treatment: Suspect shingles to left ear (dermatome C3). Discussed this with pt. She is already taking gabapentin and percocet for pain, thus will rx for valacyclovir today and have her f/u with ENT this week to insure proper healing. - Differential Dx/Diagnosis Provider Diagnosis: Shingles Discharge - Sign-Out/Discharge Documenting (check all that apply): Patient Departure All imaging exams completed and their final reports reviewed: No Studies - Discharge Plan Condition: Stable Disposition: HOME Prescriptions: ValACYclovir (*) [Valtrex 1 GM(*)] 1 gm PO TID #21 tab Patient Education Materials: Shingles (ED) Referrals: Michelle Allen NP [Primary Care Provider] - Vance Koch MD [Medical Doctor] - As Soon As Possible Additional Instructions: If you develop a fever, shortness of breath, chest pain, new or worsening symptoms - please call your PCP or go to the ED immediately. Your ear/head pain seems to be due to shingles. Continue taking your gabapentin and percocet as prescribed. I recommend that you follow up with an Ear, Nose, and Throat specialist for a recheck this week. It is very important to follow up with ENT to insure this illness will not damage your hearing. - Billing Disposition and Condition Condition: STABLE Disposition: Home
== END 2019-01-18 18:41 | disposition home or self-care (01) ==
LOC: UCEAST 18:06
DX: B02.9 Zoster without complications (principal); E11.9 Type 2 diabetes mellitus without complications; I10 Essential (primary) hypertension; Z87.891 Personal history of nicotine dependence
CPT/HCPCS: 99212; G0463

== ENCOUNTER 2019-02-11 19:11 | Emergency (ER) | payer MEDICARE ==
--- OUTSIDE RECORDS SUMMARY | 2019-02-11 19:26 | XMS REPORT | Continuity of Care Document ---
:1955 External Reference #:[id number] Author Name Noe Pyle M.D. Address [address] [place] [address] Care Team Providers Name Role Phone Alejandro BARRAGAN, Michelle Primary Care Physician Unavailable Payers Date Identification Numbers Payment Provider Subscriber Effective: 2019 Policy Number: [id number] [employer] Medicare Ppo Janny Rojas Group Number: [id number] Group Name: [id number] [place] [address] PayID: [id number] Problems Active Problems Provider Date Essential hypertension Noe Pyle M.D. Onset: 04/06/2014 Chronic pansinusitis Noe Pyle M.D. Onset: 04/25/2014 Perforation Of Nasal Septum Noe Pyle M.D. Onset: 04/06/2014 Refractory migraine Noe Pyle M.D. Onset: 04/06/2014 Headache Noe Pyle M.D. Onset: 04/06/2014 Vertigo of central origin Noe Pyle M.D. Onset: 04/06/2014 Family History Date Family Member(s) Observation Comments General Allergies General Asthma General Cancer General Diabetes General Heart Attack General Heart Disease General Vertigo Social History Type Date Description Comments Sex Unknown Occupation Retired Medically retired, restaurant cashier Tobacco Use Start: Unknown End: Former Cigarette Smoker 2 Smoked for two years, Unknown Packs Daily quit at age 23 Tobacco Use Start: Unknown Never Smoked Cigars Tobacco Use Start: Unknown Never Smoked A Pipe Smokeless Tobacco Never Used Smokeless Tobacco ETOH Use Currently occasionally consumes alcohol Tobacco Use Start: Unknown End: Patient is a former Unknown smoker Smoking Status Reviewed: 01/25/19 Patient is a former smoker Allergies, Adverse Reactions, Alerts Active Allergies Reaction Severity Comments Date Codeine Nausea and Vomiting 04/06/2014 Contrast Dye Anaphylaxis 04/06/2014 Strawberries Anaphylaxis 04/06/2014 Amoxicillin 01/25/2019 Adhesives 01/25/2019 Medications Active Medications SIG Qnty Indications Ordering Provider Date Citalopram Take as prescribed Galprincess, Hydrobromide Jennifer Garrett 20mg Tablets Baclofen daily Galyanabdiaziz, Jennifer Garrett Valacyclovir HCL Take One Tablet By Unknown 1gm Mouth Three Times A Tablets Day Warfarin Sodium 1 tab daily Alejandro BARRAGAN, Michelle 5mg Tablets Gabapentin Take 2 Capsules By Unknown 300mg Mouth Every Morning Capsules And 3 Capsules By Mouth Every Evening Simvastatin daily Alejandro BARRAGAN, Michelle 40mg Tablets Metformin HCL ER daily Chang Abreu M.D. 500mg Tablets ER 24HR Iron daily Unknown Fish Oil daily Unknown Calcium daily Unknown Vitamin C daily Unknown Nateglinide Alejandro BARRAGAN, Michelle 60mg Tablets History Medications Prednisone 40 mg for 7 days, 1Course 473.8 Noe Francisco 10/10/2014 - 10mg then 20 mg for 4 Tami Pyle 09/05/2015 days, then 10 mg for 4 days, then 5 mg for 4 days Cefdinir 1 by mouth twice 28caps Peterson Wetzel 04/13/2014 - 300mg a day for 14 days 04/25/2014 Capsules Cefpodoxime Proxetil 1 take by mouth 20tabs Noe Francisco 04/12/2014 - tablet every 12 Tami Pyle 04/25/2014 200mg Tablets hours for 14 days Ascorbic Acid Take as directed Henna, - 500mg Jennifer Garrett 01/24/2019 Tablets Januvia Take as Galyanova, - 25mg Tablets prescribed Jennifer Garrett 09/05/2015 Meclizine HCL 1 by mouth three 90days Galprincses, - 25mg times a day as Jennifer Garrett 09/05/2015 Tablets needed for dizziness Diovan 1 by mouth every Unknown - 80mg Tablets day 01/24/2019 Skelaxin 1 by mouth every Galyanova, - 800mg 12 hours Jennifer M.D. 01/24/2019 Tablets Percocet 1-2 tabs by mouth 30tabs Galyanova, - 5-325mg every 4-6 hours Jennifer M.D. 01/24/2019 Tablets as needed for pain Coumadin 1 tabs by mouth Galyanova, - 5mg Tablets every day Jennifer M.D. 01/24/2019 Tradjenta Galyanova, - 5mg Tablets Jennifer M.D. 01/24/2019 Metformin HCL 1 po daily Galyanova, - 1000mg Jennifer M.D. 01/24/2019 Tablets Tramadol HCL Alejandro ACCESSIBILITY LIFT TECHNICIAN, Michelle - 50mg 01/24/2019 Tablets Januvia Take 1 Tablet By Unknown - 100mg Tablets Mouth Every Day 01/24/2019 For Type 2 Diabetes Irbesartan daily Alejandro ACCESSIBILITY LIFT TECHNICIAN, Michelle - 150mg 01/24/2019 Tablets Omeprazole Take 1 Capsule By Unknown - 40mg Mouth Every Day 01/24/[address] AT [address] One Tablet Unknown - 0.4mg Under The Tongue 01/24/2019 Tablets Sub Every 5 Minutes For Up To 3 Doses as Needed Forchest Pain. If Chest Pain Still Persists Contact 911 Immunizations CPT Code Status Date Vaccine Lot # [id number] Ordered 04/12/2014 Influenza Virus Vaccine, 3 Years Of Age And Above, Intramuscular [address]4543 Refused 10/10/2014 Prevnar 13 For Intramuscular Use Vital Signs Date Vital Result Comment 01/25/2019 1:44pm Weight 185.00 lb Weight 83.916 kg Height 64.75 inches 5'4.75" Height in cm's 164.5 cm BMI (Body Mass Index) 31.0 kg/m2 09/05/2015 10:29am BP Systolic 99 mmHg BP Diastolic 62 mmHg Heart Rate 67 /min Respiratory Rate 17 /min Weight 212.00 lb Weight 96.163 kg Height 64.75 inches 5'4.75" Height in cm's 164.5 cm BMI (Body Mass Index) 35.5 kg/m2 10/18/2014 2:14pm BP Systolic 128 mmHg BP Diastolic 73 mmHg Heart Rate 71 /min Respiratory Rate 17 /min Weight 212.00 lb Weight 96.163 kg Height 64.75 inches 5'4.75" Height in cm's 164.5 cm BMI (Body Mass Index) 35.5 kg/m2 10/10/2014 11:17am BP Systolic 125 mmHg BP Diastolic 61 mmHg Heart Rate 65 /min Respiratory Rate 17 /min Weight 212.00 lb Weight 96.163 kg Height 64.75 inches 5'4.75" Height in cm's 164.5 cm BMI (Body Mass Index) 35.5 kg/m2 04/25/2014 10:57am BP Systolic 108 mmHg BP Diastolic 54 mmHg Heart Rate 62 /min Respiratory Rate 16 /min Weight 214.00 lb Weight 97.070 kg Height 64.75 inches 5'4.75" Height in cm's 164.5 cm BMI (Body Mass Index) 35.9 kg/m2 04/06/2014 2:56pm BP Systolic 106 mmHg BP Diastolic 56 mmHg Heart Rate 64 /min Respiratory Rate 17 /min Weight 214.00 lb Weight 97.070 kg Height 64.75 inches 5'4.75" Height in cm's 164.5 cm BMI (Body Mass Index) 35.9 kg/m2 Results Test Date Facility Test Result H/L Range Note Laboratory test 10/18/2014 [facility] Surgical RUN DATE: 1 finding c/o Department of Laboratories Pathology 10/20/ <[place] [address] NOTE> [phone] Comp Metabolic 10/10/2014 [facility] Sodium 135 mmol/ L N 133-145 Panel c/o Department [place] [address] [phone] Potassium 3.8 mmol/L N 3.5-5.0 Chloride 99 mmol/L Low 101-111 Co2 Carbon Dioxide 30 mmol/L N 22-32 Anion Gap 6 mmol/L N 2-11 Glucose 152 mg/dL High 70-100 Blood Urea Nitrogen 11 mg/dL N 6-24 Creatinine 0.73 mg/dL N 0.51-0.95 BUN/Creatinine Ratio 15.1 N 8-20 Calcium 9.4 mg/dL N 8.6-10.3 Total Protein 7.1 g/dL N 6.4-8.9 Albumin 4.0 g/dL N 3.2-5.2 Globulin 3.1 g/dL N 2-4 Albumin/Globulin Ratio 1.3 N 1-3 Total Bilirubin 0.40 mg/dL N 0.2-1.0 Alkaline Phosphatase 51 U/L N 34-104 Alt 33 U/L N 7-52 Ast 44 U/L High 13-39 Egfr Non- 82.2 N >60 Egfr 105.7 N >60 2 Urinalysis Profile 10/10/2014 [facility] Urine Color Mary Carmen N c/o Department [place] [address] [phone] Urine Appearance Turbid N Urine Specific [place] 1.020 N 1.010-1.030 Urine pH 5.0 N 5-9 Urine Urobilinogen Negative N Negative Urine Ketones Negative N Negative Urine Protein Negative N Negative Urine Leukocytes 1+ Abnormal Negative Urine Blood Negative N Negative * * Abnormal Negative 3 Urine Nitrite Negative N Negative Urine Bilirubin Negative N Negative Urine Glucose Negative N Negative Urine White Blood Cell 1+(6-10/hpf) Abnormal Absent Urine Red Blood Cell Absent N Absent Urine Bacteria 1+ Abnormal Absent Urine Squamous Epithelial Cell Present Abnormal Absent Urine Amorphous Crystals Present Abnormal Absent Neutrophil 10/10/2014 [facility] C-Anca Negative N Negative Cytoplasmic AB c/o Department [place] [address] [phone] P Anca Negative N Negative Anca Reviewed By MD Nat Carpenter N 4 Urine Culture And 10/10/2014 [facility] Urine Culture (SEE NOTE) 5 Sensitivities c/o [place] [address] [phone] CBC With Manual Diff 04/06/2014 [facility] White Blood 7.1 10^3 /uL N 4.8-10 [place] [address] Count .8 [phone] Red Blood Count 3.93 10^6/uL Low 4.0-5.4 Hemoglobin 10.9 g/dL Low 12.0-16.0 Hematocrit 32 % Low 35-47 Mean Corpuscular Volume 82 fL N 80-97 Mean Corpuscular Hemoglobin 28 pg N 27-31 Mean Corpuscular HGB Conc 34 g/dL N 31-36 Red Cell Distribution Width 15 % N 10.5-15 Platelet Count 317 10^3/uL N 150-450 Mean Platelet Volume 7 um3 Low 7.4-10.4 Abs Neutrophils 4.2 10^3/uL N 1.5-7.7 Abs Lymphocytes 2.3 10^3/uL N 1.0-4.8 Abs Monocytes 0.4 10^3/uL N 0-0.8 Abs Eosinophils 0.1 10^3/uL N 0-0.6 Abs Basophils 0 10^3/uL N 0-0.2 Abs Nucleated RBC 0 10^3/uL N Neutrophil % 61 % N 38-83 Lymphocytes % 33 % N 25-47 Monocytes % 6 % N 0-13 RBC Morphology Normal N Normal Comp Metabolic Panel 04/06/2014 [facility] Sodium 137 mmol/L N 133-145 [place] [address] [phone] Potassium 4.5 mmol/L N 3.7-5.6 Chloride 101 mmol/L N 101-111 Co2 Carbon Dioxide 31 mmol/L N 22-32 Anion Gap 5 mmol/L N 2-11 Glucose 180 mg/dL High 70-100 Blood Urea Nitrogen 11 mg/dL N 6-24 Creatinine 0.75 mg/dL N 0.51-0.95 BUN/Creatinine Ratio 14.7 N 8-20 Calcium 9.4 mg/dL N 8.6-10.3 Total Protein 7.1 g/dL N 6.4-8.9 Albumin 4.2 g/dL N 3.2-5.2 Globulin 2.9 g/dL N 2-4 Albumin/Globulin Ratio 1.4 N 1-3 Total Bilirubin 0.30 mg/dL N 0.2-1.0 Alkaline Phosphatase 48 U/L N 34-104 Alt 33 U/L N 7-52 Ast 43 U/L High 13-39 Egfr Non- 79.9 N >60 Egfr 102.8 N >60 6 Laboratory test 04/06/2014 [facility] TSH (Thyroid 0.89 IU/mL N 0.34-5.60 [place] [address] Stimulating [phone] Horm) 1 RUN DATE: 10/20/14 [facility] LAB LIVE PAGE 1 RUN TIME: [address] [place] [address], [place], [place] [address] Specimen Inquiry Name: JANNY ROJAS : [address]: Noe Pyle MD Acct: [id number] Unit: [id number] AGE: 59 Location: [facility] Re10/18/14 SEX: F Status: REG REF SPEC: [id number] LUZMA: 10/18/14-6264 [facility] DR: Noe Pyle MD REQ: [id number] RECD: 10/18/14-161 STATUS: SOUT _ ORDERED: PASS STAIN, GMSS, LEVEL IV FINAL DIAGNOSIS Nasal cavity mucosa, biopsy: -- Respiratory mucosa with ulceration and associated acute and chronically inflamed granulation tissue with bacterial colonization. -- No specific features of Samir's granulomatosis identified. Comment: The biopsy demonstrates multiple fragments of respiratory mucosa demonstrating marked chronic inflammation. A few fragments demonstrate areas of ulceration with associated acute and chronically inflamed granulation tissue and associated eschar with bacterial colonization. No evidence of vasculitis or granulomatous inflammation is identified. Histochemical stains for fungal organisms including GMS as well as PAS-D were performed with appropriate controls and demonstrates no evidence of invasive fungal organisms. Dr. Carpenter has reviewed this case and concurs. PRE-OPERATIVE DIAGNOSIS Rule out Alvin's disease GROSS DESCRIPTION The specimen is received in formalin in one properly labeled container with the patient's name and accession number, designated "Nasal Cavity Inflammation" and consists of multiple valenzuela-delatorre to brown-red friable tissue fragments measuring 0.8 x 0.6 x 0.2 cm in aggregate. Submitted entirely one cassette. CONTINUED ON NEXT PAGE * ML=Testing performed at Main Lab DEPARTMENT OF PATHOLOGY, [facility] [employer] [place] [address] Parveen Maria M.D. Director [facility] # [id number] RUN DATE: 10/20/14 [facility] LAB LIVE PAGE 2 RUN TIME: 1536 [facility] [employer] [place], [place] [address] Specimen Inquiry Patient: ROGERSJANNY [id number] (Continued) GROSS DESCRIPTION (Continued) Signed (signature on file) Parveen Maria MD 1537 END OF REPORT * ML=Testing performed at Main Lab DEPARTMENT OF PATHOLOGY, [address] [place] [address] Parveen Maria M.D. Director [facility] # [id number] 2 Because ethnic data is not always [...] 5 Kidney failure <15 (or dialysis) 3 *Ascorbic acid is present which may interfere with detection of blood. 4 Nat Carpenter 5 RUN DATE: 10/12/14 [facility] LAB LIVE PAGE 1 RUN TIME: [address] [place] [address] Specimen Inquiry Name: JANNY ROJSA : [address]: Noe Pyle MD Acct: [id number] Unit: [id number] AGE: 59 Location: [facility] Re10/10/14 SEX: F Status: REG REF SPEC: [id number] LUZMA: 10/10/14-1256 [facility] DR: Noe Pyle MD REQ: [id number] RECD: 10/10/14-1256 STATUS: COMP _ SOURCE: URINE SPDESC: ORDERED: Urine Culture Procedure Result Verified Site Urine Culture Final 10/12/14- 1040 L Organism 1 NORMAL CASSY [place] Count 25-50,000 (Moderate) CFU/ML END OF REPORT * ML=Testing performed at Main Lab DEPARTMENT OF PATHOLOGY, [address] [place] [address] Parveen Maria M.D. Director [facility] # [id number] 6 Because ethnic data is not always readily [...] 15-29 5 Kidney failure <15 (or dialysis) Procedures Date Code Description Status 09/11/2015 25567 Tympanometry Completed 09/11/2015 59359 Comprehensive Audiogram Completed 10/18/2014 66602 Nasal Endoscopy W/ Debridement Completed 10/31/2003 89006 Intradermals Completed 10/17/2003 60390 Prick Test Completed 08/01/2003 80812 Comprehensive Audiogram Completed Encounters Type Date Location Provider Dx Diagnosis Office Visit 01/25/2019 [place] Noe Francisco B02.9 Zoster without 1:30p 08/11/07 Tmai Pyle complications J34.89 Other specified disorders of nose and nasal sinuses Office Visit 09/05/2015 [place] Noe Francisco H91.20 Sudden 10:30a 08/11/07 Tami Pyle idiopathic hearing loss, unspecified ear H93.13 Tinnitus, bilateral Office Visit 10/10/2014 [place] Noe Francisco 473.8 Sinusitis, 11:30a 08/11/07 Tami Pyle Chronic Clements- 478.19 Mucocele Of Sinus/Perf Nasal Septum 478.1-2 Perforation Of Nasal Septum Office Visit 04/25/2014 [place] Noe Francisco 473.8 Sinusitis, 11:30a 08/11/07 Tami Pyle Chronic Clements- Office Visit 04/06/2014 [place] Noe Francisco 386.2 Vertigo Of 3:00p 08/11/07 St[place]inger, M.D. [place] 784.0 Headache Or Facial Pain 346.91 Migraine Unspec W/ Intractable 478.1-2 Perforation Of Nasal Septum Office Visit 09/30/2003 [place],[facility] Stanford Gomez 493.00 Asthma, 9:45a 08/11/07 Tami Parson Extrinsic/Atopic Office Visit 09/15/2003 [place] Stanford Gomez 493.00 Asthma, 5:15p 08/11/07 Taim Parson Extrinsic/Atopic 472.0 Rhinitis, Chronic 478.1-2 Perforation Of Nasal Septum Office Visit 08/01/2003 [place],[facility] Noe Roman.1-2 Perforation Of 2:20p 08/11/07 Tami Pyle Nasal Septum 389.10 Hearing Loss, Sensorineural/Unspecified 388.31 Tinnitus, Subjective Office Visit 08/01/2003 [place],[facility] Noe Roman.1-2 Perforation Of 1:30p 08/11/07 Tami Pyel Nasal Septum 389.10 Hearing Loss, Sensorineural/Unspecified 388.31 Tinnitus, Subjective Plan of Treatment 01/25/2019 - Noe Pyle M.D.B02.9 Zoster without complicationsComments:The patient developed shingles and was treated with Valacyclovir.I see no residual of this today. Her concern was for her left ear canal. 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 I had previously checked both ANCA and biopsy for Samir's. She develops crusting. I am going to have her see Dr. Franks to see if he has anything to recommend from a functional septal reconstruction and rhinoplasty standpoint.
[2019-02-11 20:38] LABS: ABS Eosinophils 0.1 10^3/ul (0-0.6); ABS Lymphocytes 2.7 10^3/ul (1.0-4.8); ABS Monocytes 0.4 10^3/ul (0-0.8); Eosinophil % 1.6 %; Hematocrit 34 % (35-47); Hemoglobin 11.2 g/dL (12.0-16.0); Lymphocyte % 37.6 %; Mean Corpuscular HGB Conc 33 g/dL (31-36); Mean Corpuscular Hemoglobin 29 pg (27-31); Mean Corpuscular Volume 86 fL (80-97); Mean Platelet Volume 6.3 fL (7.4-10.4); Nucleated Red Blood Cells % 0.1; Platelet Count 312 10^3/uL (150-450); Red Blood Count 3.92 10^6 /uL (3.70-4.87); Red Cell Distribution Width 16 % (10-15); White Blood Count 7.3 10^3/uL (3.5-10.8)
[2019-02-11 20:43] LABS: INR 1.88 (0.82-1.09)
[2019-02-11 20:55] LABS: Albumin 3.9 g/dL (3.2-5.2); Albumin/Globulin Ratio 1.3 (1-3); BUN/Creatinine Ratio 21.1 (8-20); C Reactive Protein 6.63 mg/L (<8.01); Calcium 9.5 mg/dL (8.6-10.3); EGFR African American 101.3 (>60); EGFR Non-African American 83.7 (>60); Globulin 3.1 g/dL (2-4); Potassium 3.8 mmol/L (3.5-5.0); Total Bilirubin 0.2 mg/dL (0.2-1.0)
--- NOTE | 2019-02-11 21:44 | ED ---
Skin Complaint - HPI Summary HPI Summary: Patient complains of rash to bilateral lower extremities starting yesterday. Started first on right leg and then moved to left leg. Patient states rash is pruritic. Denies fever, cough, sore throat, CP, SOB, N/V/D, abdominal pain, change in urine, change in BM. Patient on Coumadin. Medical history is DM, HDL , PE. - History of Current Complaint Chief Complaint: EDRashSkinAbscess Time Seen by Provider: 02/11/19 20:04 Stated Complaint: "RASH BILATERAL LEGS PER PT" Hx Obtained From: Patient Onset/Duration: Started Hours Ago Skin Exposure Onset/Duration: Hours Ago Timing: Constant Onset Severity: Moderate Current Severity: Moderate Pain Intensity: 4 Pain Scale Used: 0-10 Numeric Skin Location: Leg Character: Pruritus Aggravating Symptom(s): Nothing Alleviating Symptom(s): Unknown Associated Signs & Symptoms: Rash - Allergy/Home Medications Allergies/Adverse Reactions: Allergies Allergy/AdvReac Type Severity Reaction Status Date / Time Adhesive Tape Allergy KOENIG Verified 01/18/19 18:16 latex Allergy welts/ Verified 01/18/19 18:16 hives strawberry Allergy anaphylaxis Verified 01/18/19 18:16 codeine AdvReac n/v Verified 01/18/19 18:16 contrast dye Allergy anaphylactic Uncoded 01/18/19 18:16 shock aspertame AdvReac Headache Uncoded 01/18/19 18:16 PMH/Surg Hx/FS Hx/Imm Hx Endocrine/Hematology History: Reports: Hx Anticoagulant Therapy, Hx Diabetes, Hx Anemia - 2008 Denies: Hx Thyroid Disease Cardiovascular History: Reports: Hx Angina, Hx Coronary Artery Disease, Hx Deep Vein Thrombosis, Hx Hypercholesterolemia, Hx Hypertension Denies: Hx Pacemaker/ICD, Other Cardiovascular Problems/Disorders Respiratory History: Reports: Hx Asthma, Hx Pulmonary Embolism - on coumadin, Hx Sleep Apnea Denies: Hx Chronic Obstructive Pulmonary Disease (COPD), Other Respiratory Problems/Disorders GI History: Reports: Hx Gastroesophageal Reflux Disease, Other GI Disorders - CELIAC DISEASE Denies: Hx Ulcer History: Denies: Hx Renal Disease Musculoskeletal History: Reports: Hx Arthritis, Hx Back Problems, Hx Bursitis, Hx Orthopedic Injury - left hip injury in youth Denies: Other Musculoskeletal History Sensory History: Reports: Hx Cataracts - lory, Hx Contacts or Glasses, Hx Glaucoma - lory Denies: Hx Hearing Aid Opthamlomology History: Reports: Hx Cataracts - lory, Hx Contacts or Glasses, Hx Glaucoma - lory Neurological History: Reports: Hx Headaches - fewer headaches recently, Hx Nerve Disease - neuopathy both feet Denies: Other Neuro Impairments/Disorders Psychiatric History: Reports: Hx Anxiety, Hx Depression Denies: Hx Panic Disorder - Surgical History Surgery Procedure, Year, and Place: breast reduction 1989/[facility];. cholecystectomy 1990/[facility];. carpal tunnel release [facility];. bones (2) removed from left wrist ([facility]),. arthroscopic surgery left knee;. Right Hip Replaced in December 2016 at [facility]. LEFT HIP REPLACEMENT 2019. bilateral cateracts Hx Anesthesia Reactions: Yes - difficulty waking up - Immunization History Date of Tetanus Vaccine: Unk Date of Influenza Vaccine: 2012 Infectious Disease History: Yes Infectious Disease History: Denies: Hx Hepatitis, Hx Human Immunodeficiency Virus (HIV), Traveled Outside the in Last 30 Days - Family History Known Family History: Positive: Cardiac Disease, Other - FMHX OF STROKE ENDORSED Negative: Blood Disorder - NO FMHX OF BLOOD CLOTS - Social History Alcohol Use: Occasionally Alcohol Amount: 1-2 glasses of wine per week Substance Use Type: Reports: None Hx Tobacco Use: No Smoking Status (MU): Former Smoker Type: Cigarettes Amount Used/How Often: at age 22 Have You Smoked in the Last Year: No Review of Systems Constitutional: Negative Eyes: Negative ENT: Negative Cardiovascular: Negative Respiratory: Negative Gastrointestinal: Negative Genitourinary: Negative Musculoskeletal: Negative Positive: Rash Neurological: Negative Psychological: Normal All Other Systems Reviewed And Are Negative: Yes Physical Exam - Summary Physical Exam Summary: Rash consists of multiple red erythematous satellite lesions on bilateral lower extremities. Non-blanchable. No vesicles. Slightly raised. Triage Information Reviewed: Yes Vital Signs On Initial Exam: Initial Vitals Temp Pulse Resp BP Pulse Ox 97.7 F 79 18 134/58 97 02/11/19 19:13 02/11/19 19:13 02/11/19 19:13 02/11/19 19:13 02/11/19 19:13 Vital Signs Reviewed: Yes Appearance: Positive: Well-Appearing Skin: Positive: Warm Head/Face: Positive: Normal Head/Face Inspection Eyes: Positive: Normal ENT: Positive: Normal ENT inspection Neck: Positive: Supple Respiratory/Lung Sounds: Positive: Clear to Auscultation Cardiovascular: Positive: Normal Abdomen Description: Positive: Nontender Musculoskeletal: Positive: Normal Neurological: Positive: Normal Psychiatric: Positive: Normal AVPU Assessment: Alert - Darwin Coma Scale Best Eye Response: 4 - Spontaneous Best Motor Response: 6 - Obeys Commands Best Verbal Response: 5 - Oriented Coma Scale Total: 15 Diagnostics - Vital Signs Vital Signs Temp Pulse Resp BP Pulse Ox 02/11/19 19:13 97.7 F 79 18 134/58 97 - Laboratory Lab Results: Lab Results 02/11/19 02/11/19 02/11/19 Range/Units 20:31 20:31 20:31 WBC 7.3 (3.5-10.8) 10^3/uL RBC 3.92 (3.70-4.87) 10^6 /uL Hgb 11.2 L (12.0-16.0) g/dL Hct 34 L (35-47) % MCV 86 (80-97) fL MCH 29 (27-31) pg MCHC 33 (31-36) g/dL RDW 16 H (10-15) % Plt Count 312 (150-450) 10^3/uL MPV 6.3 L (7.4-10.4) fL Neut % (Auto) 54.4 % Lymph % (Auto) 37.6 % [place] % (Auto) 6.0 % Eos % (Auto) 1.6 % Baso % (Auto) 0.4 % Absolute Neuts (auto) 4.0 (1.5-7.7) 10^3/ul Absolute Lymphs (auto) 2.7 (1.0-4.8) 10^3/ul Absolute Monos (auto) 0.4 (0-0.8) 10^3/ul Absolute Eos (auto) 0.1 (0-0.6) 10^3/ul Absolute Basos (auto) 0.0 (0-0.2) 10^3/ul Absolute Nucleated RBC 0.0 10^3/ul Nucleated RBC % 0.1 INR (Anticoag Therapy) 1.88 H (0.82-1.09) Sodium 138 (135-145) mmol/L Potassium 3.8 (3.5-5.0) mmol/L Chloride 99 L (101-111) mmol/L Carbon Dioxide 30 (22-32) mmol/L Anion Gap 9 (2-11) mmol/L BUN 15 (6-24) mg/dL Creatinine 0.71 (0.51-0.95) mg/dL Est GFR ( Amer) 101.3 (>60) Est GFR (Non-Af Amer) 83.7 (>60) BUN/Creatinine Ratio 21.1 H (8-20) Glucose 185 H (70-100) mg/dL Calcium 9.5 (8.6-10.3) mg/dL Total Bilirubin 0.20 (0.2-1.0) mg/dL AST 19 (13-39) U/L ALT 15 (7-52) U/L Alkaline Phosphatase 55 (34-104) U/L C-Reactive Protein 6.63 (<8.01) mg/L Total Protein 7.0 (6.4-8.9) g/dL Albumin 3.9 (3.2-5.2) g/dL Globulin 3.1 (2-4) g/dL Albumin/Globulin Ratio 1.3 (1-3) Result Diagrams: 02/11/19 20:31 02/11/19 20:31 Lab Statement: Any lab studies that have been ordered have been reviewed, and results considered in the medical decision making process. Course/Dx - Course Course Of Treatment: Patient complains of rash to bilateral lower extremities starting yesterday. Started first on right leg and then moved to left leg. Patient states rash is pruritic. Denies fever, cough, sore throat, CP, SOB, N/V /D, abdominal pain, change in urine, change in BM. Patient on Coumadin. Medical history is DM, HDL, PE. Vital signs within normal limits. Labs unremarkable. Platelets Unremarkable. Patient on Coumadin. Follow-up with dermatology. Patient understands and improves of plan. - Diagnoses Provider Diagnoses: Rash Discharge - Sign-Out/Discharge Documenting (check all that apply): Patient Departure Patient Received Moderate/Deep Sedation with Procedure: No - Discharge Plan Condition: Stable Disposition: HOME Patient Education Materials: Acute Rash (ED) Referrals: Michelle Allen NP [Primary Care Provider] - Kimi Barnett MD [Medical Doctor] - Additional Instructions: Follow-up with dermatology Dr. Barnett for further evaluation of rash. Return to the ED for any new or worsening symptoms. - Billing Disposition and Condition Condition: STABLE Disposition: Home
[2019-02-11 21:55] VITALS: BP 126/65
== END 2019-02-11 21:54 | disposition home or self-care (01) ==
LOC: ED 19:11
DX: M79.604 Pain in right leg (principal); Z79.01 Long term (current) use of anticoagulants; I25.10 Atherosclerotic heart disease of native coronary artery without angina pectoris; Z86.718 Personal history of other venous thrombosis and embolism; Z86.711 Personal history of pulmonary embolism; R51 Headache; Z87.891 Personal history of nicotine dependence; R21 Rash and other nonspecific skin eruption
CPT/HCPCS: 36415; 80053; 85025; 85610; 86140; 99281

== ENCOUNTER 2019-09-01 17:03 | Emergency (ER) | payer MEDICARE ==
--- OUTSIDE RECORDS SUMMARY | 2019-09-01 17:22 | XMS REPORT | Continuity of Care Document ---
:1955 External Reference #:[id number] Author Name Loco Meredith M.D. (transmitted by agent of provider Maureen Bailon) Address [address] [place] [id number] Care Team Providers Name Role Phone Clarence Zamudio MD - Family Care Team Information Precipitator Supervisor [phone] Medicine Juwan Chau MD - Care Team Information Precipitator Supervisor [phone] Ophthalmology Michelle Allen F.N.P. - Family Care Team Information Precipitator Supervisor Problems Active Problems Provider Date Coronary arteriosclerosis Loco Meredith M.D. Onset: 07/16/2011 Hyperlipidemia Loco Meredith M.D. Onset: 07/16/2011 Benign essential hypertension Loco Meredith M.D. Onset: 07/16/2011 Electrocardiogram abnormal Loco Meredith M.D. Onset: 02/28/2012 Social History Type Date Description Comments Sex Unknown ETOH Use Occasionally consumes alcohol Tobacco Use Start: Unknown End: Patient is a former smoked for a year Unknown smoker at age 21 Recreational Drug Use Never Used Drugs Smoking Status Reviewed: 08/18/19 Patient is a former smoked for a year smoker at age 21 Exercise Type/Frequency Walks daily Allergies, Adverse Reactions, Alerts Active Allergies Reaction Severity Comments Date Codeine n/v 07/22/2008 strawberries hives 07/22/2008 Amoxicillin gi distress 07/22/2008 contrast dye hives breathing difficulty 07/16/2011 Latex 06/22/2014 Tape 06/22/2014 Medications Active Medications SIG Qnty Indications Ordering Date Provider Tylenol 2 po qd prn h/a Loco Neely 01/12/2008 500mg Tami Meredith Trulicity inject 1 dose Unknown subcutaneously once 1.5mg/0.5ML weekly Solution Pen-Inject Jardiance 1 by mouth every day Unknown 25mg Tablets Metformin HCL 1 by mouth twice a Unknown 500mg day Tablets Starlix take one tablet by Unknown 60mg mouth before meals Tablets Valsartan 1 by mouth every day Unknown 80mg Tablets Calcium 600 1 by mouth bid Unknown 600mg Tablets Iron Supplement 1 tablet daily Unknown Baclofen 1 tablet daily at Unknown 20mg bedtime Tablets Simvastatin 1 by mouth every day Unknown 20mg Tablets Percocet 1 by mouth every 6 Unknown 5-325mg hours as needed pain Tablets Omeprazole 1 by mouth every day Unknown 20mg Capsules DR Francheskat one sl q5min up to 3 Unknown 0.4mg doses as needed Tablets Sub Gabapentin 2 tablets by mouth in Unknown 300mg the am and 3 tablets Capsules by mouth at bedtime Vitamin C 1 po bid 30tabs Unknown 500mg Tablets ER Fish Oil 1 tablet twice a day Unknown 1000mg Capsules Celexa 1 po qd 30tabs Unknown 20mg Tablets Coumadin as directed (managed Unknown 5mg by PMD) Tablets Immunizations Description No Information Available Vital Signs Date Vital Result Comment 08/18/2019 2:57pm Height 64 inches 5'4" Weight 182.50 lb without shoes Heart Rate 66 /min radial,regular BP Systolic Sitting 116 mmHg LA,reg cuff BP Diastolic Sitting 66 mmHg LA,reg cuff BP Systolic Standing 112 mmHg LA,reg cuff BP Diastolic Standing 64 mmHg LA,reg cuff BMI (Body Mass Index) 31.3 kg/m2 Ejection Fraction 55%-60% 12/30/14 echocardiogram 09/01/2018 3:27pm Height 64 inches 5'4" Weight 188.25 lb with shoes Heart Rate 76 /min BP Systolic Sitting 114 mmHg ule BP Diastolic Sitting 70 mmHg ule BMI (Body Mass Index) 32.3 kg/m2 Ejection Fraction 55-60% 12/30/14 echo Results Description No Information Available Procedures Date Code Description Status 08/18/2019 43599 EKG Tracing & Interpretation Completed Medical Devices Description No Information Available Encounters Description No Information Available Assessments Date Code Description Provider 08/18/2019 I25.10 Atherosclerotic heart disease of [place] Loco Meredith M.D. coronary artery with 08/18/2019 I10 Essential (primary) hypertension Loco Meredith M.D. 08/18/2019 E66.9 Obesity, unspecified Loco Meredith M.D. 08/18/2019 E78.5 Hyperlipidemia, unspecified Loco Meredith M.D. 08/18/2019 G47.33 Obstructive sleep apnea (adult) Loco Meredith M.D. (pediatric) Plan of Treatment 08/18/2019 - Loco Meredith M.D.I25.10 Atherosclerotic heart disease [place] coronary artery withFollow up:one yr ovI10 Essential (primary) [id number] Obesity, [id number] Hyperlipidemia, [id number] Obstructive sleep apnea (adult) (pediatric) Functional Status Description No Information Available Mental Status Description No Information Available Referrals Description No Information Available
--- NOTE | 2019-09-01 17:37 | ED ---
Adult Trauma - HPI Summary HPI Summary: Patient complains of persistent headache, photophobia and recurrent nosebleeds status post fall out of bed 08/07/19. Patient states she fell out of bed and hit her face on the floor. LOC unknown. History of chronic migraines and nosebleeds, but states both are worse than before. No active nosebleed here in ED. Patient on warfarin for history of PE 2008. Headache described as frontal bilaterally, dull with sharp spikes. Denies fever, cough, sore throat, CP, neurological deficits, vision change, SOB, N/V/D, abdominal pain, change in urine, change in BM. Medical history is DM, PE. Patient states INR was checked this morning with result of 2.2. - History of Current Complaint Chief Complaint: EDHeadInjury Stated Complaint: FALL ON FACE/HEADACHE PER PT Time Seen by Provider: 09/01/19 17:32 Hx Obtained From: Patient Mechanism of Injury: Fall Loss of Consciousness: unsure Impact: Frontal Onset/Duration: Started Weeks Ago Onset of Pain: Immediate Onset Severity: Severe Current Severity: Severe Pain Intensity: 9 Pain Scale Used: 0-10 Numeric Location: Head Character: Dull, Aching, Stabbing Aggravating Factor(s): Movement Alleviating Factor(s): Nothing Associated Signs & Symptoms: Positive: Negative - Allergy/Home Medications Allergies/Adverse Reactions: Allergies Allergy/AdvReac Type Severity Reaction Status Date / Time Adhesive Tape Allergy KOENIG Verified 01/18/19 18:16 latex Allergy welts/ Verified 01/18/19 18:16 hives strawberry Allergy anaphylaxis Verified 01/18/19 18:16 codeine AdvReac n/v Verified 01/18/19 18:16 contrast dye Allergy anaphylactic Uncoded 01/18/19 18:16 shock aspertame AdvReac Headache Uncoded 01/18/19 18:16 PMH/Surg Hx/FS Hx/Imm Hx Endocrine/Hematology History: Reports: Hx Anticoagulant Therapy, Hx Diabetes, Hx Anemia - 2008 Denies: Hx Thyroid Disease Cardiovascular History: Reports: Hx Angina, Hx Coronary Artery Disease, Hx Deep Vein Thrombosis, Hx Hypercholesterolemia, Hx Hypertension Denies: Hx Pacemaker/ICD, Other Cardiovascular Problems/Disorders Respiratory History: Reports: Hx Asthma, Hx Pulmonary Embolism - on coumadin, Hx Sleep Apnea Denies: Hx Chronic Obstructive Pulmonary Disease (COPD), Other Respiratory Problems/Disorders GI History: Reports: Hx Gastroesophageal Reflux Disease, Other GI Disorders - CELIAC DISEASE Denies: Hx Ulcer History: Denies: Hx Renal Disease Musculoskeletal History: Reports: Hx Arthritis, Hx Back Problems, Hx Bursitis, Hx Orthopedic Injury - left hip injury in youth Denies: Other Musculoskeletal History Sensory History: Reports: Hx Cataracts - lory, Hx Contacts or Glasses, Hx Glaucoma - lory Denies: Hx Hearing Aid Opthamlomology History: Reports: Hx Cataracts - lory, Hx Contacts or Glasses, Hx Glaucoma - lory Neurological History: Reports: Hx Headaches - fewer headaches recently, Hx Nerve Disease - neuopathy both feet Denies: Other Neuro Impairments/Disorders Psychiatric History: Reports: Hx Anxiety, Hx Depression Denies: Hx Panic Disorder - Surgical History Surgery Procedure, Year, and Place: breast reduction 1989/[facility];. cholecystectomy 1990/[facility] [facility] [place] from left wrist ([facility]. arthroscopic surgery left knee;. Right Hip Replaced in December 2016 at [facility]. LEFT HIP REPLACEMENT 2019. bilateral cateracts Hx Anesthesia Reactions: Yes - difficulty waking up - Immunization History Date of Tetanus Vaccine: Unk Date of Influenza Vaccine: 2012 Infectious Disease History: No Infectious Disease History: Denies: Hx Hepatitis, Hx Human Immunodeficiency Virus (HIV), Traveled Outside the [place] in Last 30 Days - Family History Known Family History: Positive: Cardiac Disease, Other - FMHX OF STROKE ENDORSED Negative: Blood Disorder - NO FMHX OF BLOOD CLOTS - Social History Alcohol Use: Occasionally Alcohol Amount: 1-2 glasses of wine per week Substance Use Type: Reports: None Hx Tobacco Use: No Smoking Status (MU): Former Smoker Type: Cigarettes Amount Used/How Often: at age 22 Have You Smoked in the Last Year: No Review of Systems Constitutional: Negative Positive: Photophobia Positive: Epistaxis Cardiovascular: Negative Respiratory: Negative Gastrointestinal: Negative Genitourinary: Negative Musculoskeletal: Negative Skin: Negative Positive: Headache Psychological: Normal All Other Systems Reviewed And Are Negative: Yes Physical Exam - Summary Physical Exam Summary: Neuro exam normal. Full range of motion of neck and jaw. Normal exam of facial bones. Triage Information Reviewed: Yes Vital Signs On Initial Exam: Initial Vitals Temp Pulse Resp BP Pulse Ox 97.8 F 73 18 123/84 99 09/01/19 17:10 09/01/19 17:10 09/01/19 17:10 09/01/19 17:10 09/01/19 17:10 Vital Signs Reviewed: Yes Appearance: Positive: Well-Appearing Skin: Positive: Warm Head/Face: Positive: Normal Head/Face Inspection Eyes: Positive: Normal ENT: Positive: Normal ENT inspection Neck: Positive: Supple Respiratory/Lung Sounds: Positive: Clear to Auscultation Cardiovascular: Positive: Normal Abdomen Description: Positive: Nontender Musculoskeletal: Positive: Normal Neurological: Positive: Normal Psychiatric: Positive: Normal AVPU Assessment: Alert - [place] Coma Scale Best Eye Response: 4 - Spontaneous Best Motor Response: 6 - Obeys Commands Best Verbal Response: 5 - Oriented Coma Scale Total: 15 Procedures - Sedation Patient Received Moderate/Deep Sedation with Procedure: No Diagnostics - Vital Signs Vital Signs Temp Pulse Resp BP Pulse Ox 09/01/19 17:10 97.8 F 73 18 123/84 99 - Laboratory Lab Statement: Any lab studies that have been ordered have been reviewed, and results considered in the medical decision making process. Adult Trauma Course/Dx - Course Course Of Treatment: Patient complains of persistent headache, photophobia and recurrent nosebleeds status post fall out of bed 08/07/19. Patient states she fell out of bed and hit her face on the floor. LOC unknown. History of chronic migraines and nosebleeds, but states both are worse than before. No active nosebleed here in ED. Patient on warfarin for history of PE 2008. Headache described as frontal bilaterally, dull with sharp spikes. Denies fever , cough, sore throat, CP, neurological deficits, vision change, SOB, N/V/D, abdominal pain, change in urine, change in BM. Medical history is DM, PE. Patient states INR was checked this morning with result of 2.2. Vital signs within normal limits. CT brain unremarkable. Patient headache improved with Tylenol Benadryl and Reglan. - Diagnoses Provider Diagnoses: Headache, Epistaxis Discharge ED - Sign-Out/Discharge Documenting (check all that apply): Patient Departure - Discharge Plan Condition: Stable Disposition: HOME Patient Education Materials: Nosebleed (ED), Migraine Headache (ED) Referrals: Michelle Allen NP [Primary Care Provider] - Hipolito Herbert MD [Medical Doctor] - Peterson Wetzel MD [Medical Doctor] - Additional Instructions: Follow-up with primary care and neurology for further evaluation and management of chronic migraines. Follow-up with primary care and ENT Dr. Wetzel for further evaluation of recurrent nosebleeds - Billing Disposition and Condition Condition: STABLE Disposition: Home - Attestation Statements Provider Attestation: I was available for consultation for this patient. I did not evaluate the patient, or participate in any medical decision making or disposition decisions unless I am specifically named in the chart as having consulted on the patient. If I have consulted on the patient, please see my own ED note on the patient encounter. Janet Waterman MD
[2019-09-01] MEDS ORDERED: Acetaminophen TAB* 325 MG PO ONE (18:16)
[2019-09-01] MEDS ORDERED: Metoclopramide TAB* 10 MG PO ONE (18:17)
[2019-09-01] MEDS ORDERED: diPHENhydraMINE PO* 25 MG PO ONE (18:17)
[2019-09-01 20:31] VITALS: BP 124/75
== END 2019-09-01 20:27 | disposition home or self-care (01) ==
LOC: ED 17:03
DX: R51 Headache (principal); R04.0 Epistaxis; H53.149 Visual discomfort, unspecified; Z87.891 Personal history of nicotine dependence; Z79.01 Long term (current) use of anticoagulants; I25.10 Atherosclerotic heart disease of native coronary artery without angina pectoris; Z86.718 Personal history of other venous thrombosis and embolism; E78.00 Pure hypercholesterolemia, unspecified; I10 Essential (primary) hypertension; Z86.711 Personal history of pulmonary embolism; F41.9 Anxiety disorder, unspecified; F32.9 Major depressive disorder, single episode, unspecified
CPT/HCPCS: 70450; 99282; A9270-GY

== ENCOUNTER 2023-07-29 12:56 | Inpatient (IN) ==
[2023-07-29 14:06] LABS: ABS Eosinophils 0.1 10^3/uL (0.0-0.5); ABS Lymphocytes 2.8 10^3/uL (1.0-4.8); ABS Monocytes 0.6 10^3/uL (0.0-0.9); ABS Neutrophils 4.7 10^3/uL (1.5-7.6); ABS Nucleated RBC 0.01 10^3/ul; Eosinophil % 0.7 %; Hematocrit 38.8 % (35-45); Hemoglobin 13.3 g/dL (11.5-14.3); Lymphocyte % 34.2 %; Mean Corpuscular Hemoglobin 31.3 pg (27-33); Mean Corpuscular Hgb Conc 34.3 g/dL (31-36); Mean Corpuscular Volume 91.1 fL (80-97); Nucleated Red Blood Cells % 0.2 %/100WBC (0.0-0.8); Platelet Count 319 10^3/uL (150-450); Red Blood Count 4.26 10^6/uL (3.63-4.92); Red Cell Distribution Width 14.2 % (12-17); White Blood Count 8.2 10^3/uL (3.8-11.8)
[2023-07-29] MEDS ORDERED: Ondansetron 4 mg VIAL 2 MG/ML 2 ml VIAL IV ONE (14:58)
[2023-07-29 15:24] LABS: High Sens Troponin Baseline 6 pg/mL (<15)
[2023-07-29 15:32] LABS: High Sensitivity Troponin 1 Hr 6 pg/mL (<15)
[2023-07-29 16:15] LABS: Anion Gap 11 mmol/L (2-16); Blood Urea Nitrogen 17 mg/dL (6-24); CO2 Carbon Dioxide 25 mmol/L (22-32); Calcium 10.4 mg/dL (8.6-10.3); Chloride 99 mmol/L (101-111); Creatinine, Serum 0.93 mg/dL (0.51-0.95); Glucose 205 mg/dL (70-100); Sodium 135 mmol/L (135-145); eGFR CKD-EPI 67.8 (>60)
[2023-07-29] MEDS ORDERED: Albuterol HFA INHALER 8 gm MDI INH PRN (18:10)
[2023-07-29] MEDS ORDERED: Potassium Chlor 20 meq TAB.ER PO ONE (18:19)
[2023-07-29] MEDS ORDERED: Dextrose 50% Syringe 50 ml 25 GM/50 ML SYRINGE IV PUSH PRN (18:48)
[2023-07-29 18:58] LABS: Alkaline Phosphatase 51 U/L (35-149); Cholesterol 131 mg/dL; HDL Cholesterol 46.4 mg/dL; LDL Cholesterol 47 mg/dL; Triglycerides 188 mg/dL
[2023-07-29 22:10] LABS: Magnesium 1.7 mg/dL (1.9-2.7)
[2023-07-29] MEDS: Insulin GLARGINE 100 un/ml 10 ml VIAL SUBCUT SCH (22:47)
[2023-07-29] MEDS ORDERED: Magnesium Sulfate 2 gm BAG 2 GM/50 ML BAG IVPB ONE (23:30)
[2023-07-30 06:53] LABS: ABS Eosinophils 0.1 10^3/uL (0.0-0.5); ABS Lymphocytes 2.9 10^3/uL (1.0-4.8); ABS Monocytes 0.6 10^3/uL (0.0-0.9); ABS Neutrophils 3.2 10^3/uL (1.5-7.6); Eosinophil % 2.2 %; Hemoglobin 12.2 g/dL (11.5-14.3); Lymphocyte % 42.5 %; Mean Corpuscular Hemoglobin 31.2 pg (27-33); Mean Corpuscular Volume 91.6 fL (80-97); Mean Platelet Volume 6.4 fL (7.5-11.2); Nucleated Red Blood Cells % 0.1 %/100WBC (0.0-0.8); Platelet Count 277 10^3/uL (150-450); Red Blood Count 3.93 10^6/uL (3.63-4.92); Red Cell Distribution Width 13.8 % (12-17); White Blood Count 6.9 10^3/uL (3.8-11.8)
[2023-07-30 07:11] LABS: Calcium 9.9 mg/dL (8.6-10.3); Creatinine, Serum 1.03 mg/dL (0.51-0.95); Potassium 4.7 mmol/L (3.5-5.0)
[2023-07-30] MEDS ORDERED: Sulfur Hexaflouride MICROSPHR 25 MG VIAL ONE ×2 (08:05)
[2023-07-30] MEDS ORDERED: Regadenoson 0.4 MG/5 ML SYRINGE ONE (08:46)
[2023-07-30] MEDS ORDERED: Aminophylline 25 MG/ML VIAL ONE (08:46)
[2023-07-30 21:20] LABS: ABS Eosinophils 0.1 10^3/uL (0.0-0.5); ABS Lymphocytes 2.9 10^3/uL (1.0-4.8); ABS Monocytes 0.5 10^3/uL (0.0-0.9); ABS Neutrophils 3.3 10^3/uL (1.5-7.6); Hematocrit 34.7 % (35-45); Mean Corpuscular Hemoglobin 31.4 pg (27-33); Mean Corpuscular Hgb Conc 34.6 g/dL (31-36); Mean Corpuscular Volume 90.9 fL (80-97); Mean Platelet Volume 6.4 fL (7.5-11.2); Platelet Count 277 10^3/uL (150-450); Red Blood Count 3.82 10^6/uL (3.63-4.92); Red Cell Distribution Width 13.8 % (12-17); White Blood Count 6.9 10^3/uL (3.8-11.8)
[2023-07-30 21:34] LABS: Activated Partial Thrombo Time 38.8 seconds (26.0-38.0); INR 1.24 (0.83-1.13)
[2023-07-30 21:38] LABS: Calcium 9.3 mg/dL (8.6-10.3); Creatinine, Serum 1.05 mg/dL (0.51-0.95); Potassium 4.2 mmol/L (3.5-5.0); eGFR CKD-EPI 58.6 (>60)
[2023-07-30] MEDS: Insulin GLARGINE 100 un/ml 10 ml VIAL SUBCUT SCH (21:58)
[2023-07-30] MEDS: NS 0.9% 1000 ml BAG 1,000 ML IV SCH (22:03)
[2023-07-31 06:12] LABS: Hematocrit 36.8 % (35-45); Hemoglobin 12.5 g/dL (11.5-14.3); Mean Corpuscular Hgb Conc 33.9 g/dL (31-36); Mean Corpuscular Volume 91.4 fL (80-97); Mean Platelet Volume 6.5 fL (7.5-11.2); Platelet Count 284 10^3/uL (150-450); Red Blood Count 4.03 10^6/uL (3.63-4.92); Red Cell Distribution Width 13.8 % (12-17); White Blood Count 6.1 10^3/uL (3.8-11.8)
[2023-07-31 06:27] LABS: Calcium 9.3 mg/dL (8.6-10.3); Creatinine, Serum 0.88 mg/dL (0.51-0.95); Potassium 4.4 mmol/L (3.5-5.0); eGFR CKD-EPI 72.4 (>60)
[2023-07-31] MEDS ORDERED: Heparin 2 UNITS/ML 1000 mls 0 ML IV ONE (12:07)
[2023-07-31] MEDS ORDERED: nitroGLYCERIN DRIP 0 MCG/0 ML BTL ONE (12:07)
[2023-07-31] MEDS ORDERED: niCARdipine 0.1MG/ML IVPREMIX 0 MG/0 ML BAG IV ONE (12:08)
[2023-07-31] MEDS ORDERED: Lidocaine 1% MPF 5 ML VIAL ONE (12:08)
[2023-07-31] MEDS ORDERED: Insulin GLARGINE 100 un/ml 10 ml VIAL SUBCUT SCH (21:00)
[2023-07-31] MEDS: NS 0.9% 1000 ml BAG 1,000 ML IV SCH (22:09)
[2023-08-01 08:10] LABS: Anion Gap 11 mmol/L (2-16); Blood Urea Nitrogen 23 mg/dL (6-24); CO2 Carbon Dioxide 22 mmol/L (22-32); Calcium 8.8 mg/dL (8.6-10.3); Chloride 101 mmol/L (101-111); Creatinine, Serum 0.85 mg/dL (0.51-0.95); Glucose 309 mg/dL (70-100); Sodium 134 mmol/L (135-145); eGFR CKD-EPI 75.5 (>60)
[2023-08-01] MEDS ORDERED: fentaNYL 100 mcg/2 ml 50 MCG/ML VIAL IV SLOW PU ONE (08:30)
[2023-08-01] MEDS ORDERED: Midazolam 10 mg/10 ml VIAL 1 mg/ml 10 ml VIAL (10 mg) IV SLOW PU ONE (08:30)
[2023-08-01] MEDS ORDERED: Flumazenil 0.5 mg/5 ml 0.1 MG/ML 5 ml VIAL IV PRN (08:30)
[2023-08-01] MEDS ORDERED: Naloxone 0.4 mg VIAL 0.4 mg/ml 1 ml VIAL IV PUSH PRN (08:30)
[2023-08-01] MEDS ORDERED: Heparin 1,000 UNIT/ML 10 ml (10,000 UNITS) CATHLAB/DIALYSIS ONE (08:38)
[2023-08-01] MEDS ORDERED: Midazolam 5 mg/5 ml VIAL 1 mg/ml 5 ml VIAL (5 mg) ONE (08:38)
[2023-08-01] MEDS ORDERED: fentaNYL 100 mcg/2 ml 50 MCG/ML VIAL ONE (08:38)
[2023-08-01] MEDS ORDERED: nitroGLYCERIN DRIP 25,000 MCG/250 ML BTL ONE (08:39)
[2023-08-01] MEDS ORDERED: Heparin 2 UNITS/ML 1000 mls 2,000 ML IV ONE (08:39)
[2023-08-01] MEDS ORDERED: Lidocaine 1% MPF 5 ML VIAL ONE (08:39)
[2023-08-01] MEDS ORDERED: niCARdipine 0.1MG/ML IVPREMIX 20 MG/200 ML BAG IV ONE (08:40)
[2023-08-01] MEDS ORDERED: Iohexol 350 (CONTRAST) 100 ML PAK IV ONE (09:00)
[2023-08-01 15:37] VITALS: BP 112/52
== END 2023-08-01 18:40 | disposition short-term general hospital (02) | DRG 282 ==
LOC: EDHOLD 12:56 → ED 12:56 → SUATTDRO 17:26 → MEDTELE 19:38
PROVIDERS: ADMIT Internal Medicine; ATTEND Internal Medicine

== ENCOUNTER 2023-09-01 16:04 | Observation (INO) ==
[2023-09-01 17:29] LABS: ABS Eosinophils 0.3 10^3/uL (0.0-0.5); ABS Lymphocytes 2.2 10^3/uL (1.0-4.8); ABS Monocytes 0.5 10^3/uL (0.0-0.9); ABS Neutrophils 3.6 10^3/uL (1.5-7.6); ABS Nucleated RBC 0.01 10^3/ul; Eosinophil % 5.2 %; Hematocrit 39.3 % (35-45); Hemoglobin 13.5 g/dL (11.5-14.3); Lymphocyte % 32.9 %; Mean Corpuscular Hemoglobin 30.9 pg (27-33); Mean Corpuscular Hgb Conc 34.3 g/dL (31-36); Mean Corpuscular Volume 90.1 fL (80-97); Mean Platelet Volume 6.4 fL (7.5-11.2); Nucleated Red Blood Cells % 0.1 %/100WBC (0.0-0.8); Platelet Count 299 10^3/uL (150-450); Red Blood Count 4.36 10^6/uL (3.63-4.92); Red Cell Distribution Width 14.3 % (12-17); White Blood Count 6.7 10^3/uL (3.8-11.8)
[2023-09-01 17:53] LABS: Albumin 4.1 g/dL (3.2-5.2); Albumin/Globulin Ratio 1.3 (1-3); Calcium 9.5 mg/dL (8.6-10.3); Creatinine, Serum 1.08 mg/dL (0.51-0.95); Globulin 3.2 g/dL (2-4); Potassium 3.4 mmol/L (3.5-5.0); Total Bilirubin 0.5 mg/dL (0.2-1.0); Total Protein 7.3 g/dL (6.4-8.9); eGFR CKD-EPI 56.7 (>60)
[2023-09-01 18:03] LABS: INR 1.49 (0.83-1.13)
[2023-09-01 18:48] LABS: High Sensitivity Troponin 1 Hr 7 pg/mL (<15)
[2023-09-01 20:49] LABS: High Sensitivity Troponin 3 Hr 6 pg/mL (<15)
[2023-09-01] MEDS ORDERED: Al Hydrox/Mg Hydrox/Simet LIQ 30 ML UDC PO ONE (20:53)
[2023-09-02] MEDS ORDERED: Dextrose 50% Syringe 50 ml 25 GM/50 ML SYRINGE IV PUSH PRN (00:10)
[2023-09-02] MEDS ORDERED: Albuterol HFA INHALER 8 gm MDI INH PRN (00:13)
[2023-09-02] MEDS ORDERED: CMCS:Prasugrel 10 mg TAB (NF) PO SCH ×2 (02:27→09:00)
[2023-09-02 05:49] LABS: Anion Gap 6 mmol/L (2-16); Blood Urea Nitrogen 13 mg/dL (6-24); CO2 Carbon Dioxide 28 mmol/L (22-32); Calcium 9.8 mg/dL (8.6-10.3); Chloride 105 mmol/L (101-111); Creatinine, Serum 1.04 mg/dL (0.51-0.95); Glucose 129 mg/dL (70-100); Sodium 139 mmol/L (135-145); eGFR CKD-EPI 59.3 (>60)
[2023-09-02 07:15] LABS: High Sensitivity Troponin 1 Hr 6 pg/mL (<15)
[2023-09-02 08:10] LABS: Potassium, Whole Blood 3.9 mmol/L (3.4-4.5)
[2023-09-02 13:22] VITALS: BP 149/72
== END 2023-09-02 13:22 | disposition home or self-care (01) ==
LOC: ED 16:04 → EDHOLD 16:04 → SUATTDRO 23:06 → EDHOLD 09-02 13:21
PROVIDERS: ADMIT Internal Medicine; ATTEND Internal Medicine